=== PATIENT | male | born 1945 | race Caucasian/White ===

== ENCOUNTER 2018-09-29 19:10 | Inpatient (IN) | payer OTHER, MEDICARE, SELFPAY ==
--- NOTE | 2018-09-29 19:10 | NURSING ---
Pt arrived to TCU at this time by WC with family from in [place].
[2018-09-29 20:26] VITALS: BP 124/79; PULSE 110; RESP 16; TEMP 36.3; O2SAT 95; BMI 23.1
--- NOTE | 2018-09-29 20:34 | PCM.HP.STD ---
Problem List (1) Acute encephalopathy Status: Acute (2) Diabetic keto-acidosis Status: Acute (3) Rheumatoid arthritis Status: Chronic (4) Melanoma Status: Chronic (5) Depression Status: Chronic (6) Hypertension Status: Chronic (7) TIA (transient ischemic attack) Status: Chronic (8) Stroke Status: Chronic (9) Seizure disorder Status: Acute (10) Elevated troponin Status: Acute (11) Hypernatremia Status: Acute (12) Hyperglycemia Status: Acute (13) Community acquired pneumonia Status: Acute History of Present Illness Date of Admission: 09/29/18 Chief Complaint: Here for rehabilitation, strengthenig, prior to discharge home with spouse. The patient is a 73 year old Male with below past medical history admitted to [facility] 09/23/2018 from [facility] where he presented after being found unconscious, incontinent of stool in bathroom by . Patient normal self 1 day prior. and sleep in separate rooms, so time of sleep and awakening not accurate. Blood sugar 362, CK 1652, Lactate 3.7. Patient was treated for DKA, rhabdomyolysis with insulin, IV fluids. He had elevated WBC. CT head negative. CT A/P showed L3, L4 compression fractures. Chest X-ray showed lingular pneumonia. Patient admitted to ICU, treated for Vancomycin, Rocephin for unknown cause of encephalopathy. Lumbar puncture not performed, cannot rule out meningitis. He was treated for both community acquired pneumonia, and urinary tract infection. Neurology consulted to evaluate for possible stroke, MRI/MRA negative. Keppra IV started for possible seizures. Patient became responsive, alert on second day of Keppra. Antibiotics deescalated to Rocephin only. His mentation not at baseline, but continues to improve. Encephalopathy thought secondary to seizure from diabetic ketoacidosis. Echo EF 55 - 60%. Diastolic dysfunction. Keppra was not continued. Patient will need outpatient EEG to evaluate for seizure disorder. 09/29/2018 Admit to TCU with debility, here for rehabilitation, strengthening, prior to discharge home with spouse. Past Medical History Past Medical History (Chronic Problems): Chronic Problems Rheumatoid arthritis (Chronic) Melanoma (Chronic) Depression (Chronic) Hypertension (Chronic) TIA (transient ischemic attack) (Chronic) Stroke (Chronic) Home Medications: Ambulatory Orders Medication Instructions Recorded Amlodipine [Norvasc] 5 mg PO DAILY 09/29/18 Aspirin [Aspir 81] 81 mg PO DAILY 09/29/18 Insulin Glargine [Lantus (BKC)] 100 units SC BID 09/29/18 Lisinopril 40 mg PO DAILY 09/29/18 Tamsulosin HCl [Flomax] 0.4 mg PO DAILY 09/29/18 Surgical History: no surgical history Psychiatric History: Depression Lives: Spouse/ Significant Other - sleep in separate bedrooms. Smoking Status: Never smoker Tobacco Use: Non-smoker Alcohol: None Drugs: None - *Family History Maternal History Items: No pertinent history Paternal History Items: No pertinent history Review of Systems Constitutional: Denies: Chills, Fever, Weight Change HEENT: Denies: Head Aches, Sinus Congestion, Sinus Drainage Cardiovascular: Denies: Chest Pain, Palpitations Respiratory: Denies: Cough, Shortness of breath at rest, Sputum production Gastrointestinal: Denies: Abdominal Pain, Nausea, Vomiting Genitourinary: Denies: Dysuria Musculoskeletal: Denies: Joint Pain, Joint Tenderness Skin: Denies: Rash, Wounds Neurological: Denies: Numbness, Tingling, Focal weakness Psychiatric: Denies: Anxiety, Depression, Homicidal Ideations, Suicidal Ideations Hematologic/ Lymphatic: Denies: Easy Bruising, Easy Bleeding VTE Information - Inpt Only VTE Present on Admission: No VTE Mechan Device Prophylaxis: Knee High DAYSI Hose VTE Pharm Prophylaxis ordered?: Yes Patient Problems: Active and Suspected Problems Acute encephalopathy (Acute) Diabetic keto-acidosis (Acute) Seizure disorder (Acute) Elevated troponin (Acute) Hypernatremia (Acute) Hyperglycemia (Acute) Community acquired pneumonia (Acute) - Physical Exam General: Alert, Oriented x3, Cooperative HEENT: Atraumatic, PERRLA, EOMI, Normocephalic Neck: Supple, No JVD, Negative Carotid Bruits Lungs: Clear to auscultation, Normal air movement Cardiovascular: Regular rate, No murmurs Abdomen: Bowel Sounds Present, Soft, Non Tender Extremities: No edema, Capillary Refill Less than 3 Seconds Skin: No rashes, No breakdown Musculoskeletal: No Tenderness to Palpation of Joints or Extremities Neurological: Cranial nerves II-XII grossly intact Psych/Mental Status: Normal Affect, Appropriate Assessment/Plan All Active Problems Acute encephalopathy (Acute) Diabetic keto-acidosis (Acute) Seizure disorder (Acute) Elevated troponin (Acute) Hypernatremia (Acute) Hyperglycemia (Acute) Community acquired pneumonia (Acute) 73 year old male with below past medical history hospitalized for acute delirium secondary to seizure from diabetic ketoacidosis, complicated by community acquired pneumonia, urinary tract infection, admitted to TCU with debility, here for rehabilitation, strengthening, prior to discharge home with spouse. Debility - PT/OT. Pain - Tylenol 1000MG Q6H PRN mild pain. Bowel - Miralax 17GM daily, Senna/colace 1 tablet BID, Dulcolax 10MG PO daily PRN. Pneumonia vaccination - Administer Prevnar 13 and/or Pneumovax 23. DVT prophylaxis - Lovenox 40MG SC daily. Hypertension - Lisinopril 40MG daily, Amlodipine 5MG daily. CV prophylaxis - Aspirin 81MG daily. Diabetes Mellitus - Lantus 20 units twice daily, Humalog 13 units TIDAC, monitor sugar, adjust accordingly. BPH - Tamsulosin 0.4MG daily. Seizure disorder - order EEG. 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 I reminded him he almost , and may want to do what his doctors ask of him if he wants to continue living.
--- NOTE | 2018-09-29 20:38 | HP.PCM_ITS ---
Problem List (1) Acute encephalopathy Status: Acute (2) Diabetic keto-acidosis Status: Acute (3) Rheumatoid arthritis Status: Chronic (4) Melanoma Status: Chronic (5) Depression Status: Chronic (6) Hypertension Status: Chronic (7) TIA (transient ischemic attack) Status: Chronic (8) Stroke Status: Chronic (9) Seizure disorder Status: Acute (10) Elevated troponin Status: Acute (11) Hypernatremia Status: Acute (12) Hyperglycemia Status: Acute (13) Community acquired pneumonia Status: Acute History of Present Illness Date of Admission: 09/29/18 Chief Complaint: Here for rehabilitation, strengthenig, prior to discharge home with spouse. The patient is a 73 year old Male with below past medical history admitted to [facility] 09/23/2018 from [facility] where he presented after being found unconscious, incontinent of stool in bathroom by . Patient normal self 1 day prior. and sleep in separate rooms, so time of sleep and awakening not accurate. Blood sugar 362, CK 1652, Lactate 3.7. Patient was treated for DKA, rhabdomyolysis with insulin, IV fluids. He had elevated WBC. CT head negative. CT A/P showed L3, L4 compression fractures. Chest X-ray showed lingular pneumonia. Patient admitted to ICU, treated for Vancomycin, Rocephin for unknown cause of encephalopathy. Lumbar puncture not performed, cannot rule out meningitis. He was treated for both community acquired pneumonia, and urinary tract infection. Neurology consulted to evaluate for possible stroke, MRI/MRA negative. Keppra IV started for possible seizures. Patient became responsive, alert on second day of Keppra. Antibiotics deescalated to Rocephin only. His mentation not at baseline, but continues to improve. Encephalopathy thought secondary to seizure from diabetic ketoacidosis. Echo EF 55 - 60%. Diastolic dysfunction. Keppra was not continued. Patient will need outpatient EEG to evaluate for seizure disorder. 09/29/2018 Admit to TCU with debility, here for rehabilitation, strengthening, prior to discharge home with spouse. Past Medical History Past Medical History (Chronic Problems): Chronic Problems Rheumatoid arthritis (Chronic) Melanoma (Chronic) Depression (Chronic) Hypertension (Chronic) TIA (transient ischemic attack) (Chronic) Stroke (Chronic) Home Medications: Ambulatory Orders Medication Instructions Recorded Amlodipine [Norvasc] 5 mg PO DAILY 09/29/18 Aspirin [Aspir 81] 81 mg PO DAILY 09/29/18 Insulin Glargine [Lantus (BKC)] 100 units SC BID 09/29/18 Lisinopril 40 mg PO DAILY 09/29/18 Tamsulosin HCl [Flomax] 0.4 mg PO DAILY 09/29/18 Surgical History: no surgical history Psychiatric History: Depression Lives: Spouse/ Significant Other - sleep in separate bedrooms. Smoking Status: Never smoker Tobacco Use: Non-smoker Alcohol: None Drugs: None - *Family History Maternal History Items: No pertinent history Paternal History Items: No pertinent history Review of Systems Constitutional: Denies: Chills, Fever, Weight Change HEENT: Denies: Head Aches, Sinus Congestion, Sinus Drainage Cardiovascular: Denies: Chest Pain, Palpitations Respiratory: Denies: Cough, Shortness of breath at rest, Sputum production Gastrointestinal: Denies: Abdominal Pain, Nausea, Vomiting Genitourinary: Denies: Dysuria Musculoskeletal: Denies: Joint Pain, Joint Tenderness Skin: Denies: Rash, Wounds Neurological: Denies: Numbness, Tingling, Focal weakness Psychiatric: Denies: Anxiety, Depression, Homicidal Ideations, Suicidal Ideations Hematologic/ Lymphatic: Denies: Easy Bruising, Easy Bleeding VTE Information - Inpt Only VTE Present on Admission: No VTE Mechan Device Prophylaxis: Knee High DAYSI Hose VTE Pharm Prophylaxis ordered?: Yes Patient Problems: Active and Suspected Problems Acute encephalopathy (Acute) Diabetic keto-acidosis (Acute) Seizure disorder (Acute) Elevated troponin (Acute) Hypernatremia (Acute) Hyperglycemia (Acute) Community acquired pneumonia (Acute) - Physical Exam General: Alert, Oriented x3, Cooperative HEENT: Atraumatic, PERRLA, EOMI, Normocephalic Neck: Supple, No JVD, Negative Carotid Bruits Lungs: Clear to auscultation, Normal air movement Cardiovascular: Regular rate, No murmurs Abdomen: Bowel Sounds Present, Soft, Non Tender Extremities: No edema, Capillary Refill Less than 3 Seconds Skin: No rashes, No breakdown Musculoskeletal: No Tenderness to Palpation of Joints or Extremities Neurological: Cranial nerves II-XII grossly intact Psych/Mental Status: Normal Affect, Appropriate Assessment/Plan All Active Problems Acute encephalopathy (Acute) Diabetic keto-acidosis (Acute) Seizure disorder (Acute) Elevated troponin (Acute) Hypernatremia (Acute) Hyperglycemia (Acute) Community acquired pneumonia (Acute) 73 year old male with below past medical history hospitalized for acute delirium secondary to seizure from diabetic ketoacidosis, complicated by community acquired pneumonia, urinary tract infection, admitted to TCU with debility, here for rehabilitation, strengthening, prior to discharge home with spouse. * Debility - PT/OT. * Pain - Tylenol 1000MG Q6H PRN mild pain. * Bowel - Miralax 17GM daily, Senna/colace 1 tablet BID, Dulcolax 10MG PO daily PRN. * Pneumonia vaccination - Administer Prevnar 13 and/or Pneumovax 23. * DVT prophylaxis - Lovenox 40MG SC daily. * Hypertension - Lisinopril 40MG daily, Amlodipine 5MG daily. * CV prophylaxis - Aspirin 81MG daily. * Diabetes Mellitus - Lantus 20 units twice daily, Humalog 13 units TIDAC, monitor sugar, adjust accordingly. * BPH - Tamsulosin 0.4MG daily. * Seizure disorder - order EEG. 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 I reminded him he almost , and may want to do what his doctors ask of him if he wants to continue living.
[2018-09-29 20:56] LABS: Bedside Glucose 284 mg/dL (70-110)
--- NOTE | 2018-09-29 22:00 | NURSING ---
Pt in room at this time voicing concern of pt abruptly getting up to use the br. agreeable to having personal alarm place on pt. PA ordered. Will continue to monitor.
--- NOTE | 2018-09-29 22:01 | NURSING ---
Addendum entered by Cynthia Gil 09/29/18 22:03: 100 units Lantus DC'd. Original Note: Pt came with orders for [address] Kiran aware. N.O. for Lantus 20 units BID and Humalog 13 units with meals. Will continue to monitor.
[2018-09-29 22:10] VITALS: PULSE 83; O2SAT 98
[2018-09-29] MEDS: Acetaminophen 500 MG Tablet 1000 MG PO (22:18)
[2018-09-30] MEDS: Menthol/Lanolin/Calamine/Znox 113 GM Tube 1 APPLIC TOPICAL ×2 (05:07→18:01)
[2018-09-30] MEDS: amLODIPine 5 MG Tablet PO (05:08)
[2018-09-30] MEDS: Lisinopril 40 MG Tablet PO (05:08)
[2018-09-30] MEDS: Senna/Docusate Sodium 1 Tablet PO (05:08)
[2018-09-30 06:30] LABS: Bedside Glucose 296 mg/dL (70-110)
[2018-09-30 06:39] LABS: Absolute Lymphocyte Count 1.87 X10^3/ul (0.83-4.51); Basophil# 0.01 X10^3/uL; Basophil% 0.2 % (0-1); Eosinophil# 0.14 X10^3/uL; Eosinophils% 2.1 % (0-5); Hematocrit 36.9 % (40-54); Hemoglobin 12.2 g/dl (13.0-16.5); Lymphocyte # 1.87 X10^3/ul (4.0); Lymphocyte % 28.1 % (19-41); Mean Corp Hgb Conc 33.1 g/gl (32-36); Mean Corpuscular Hgb 29.1 pg (27.0-32.0); Mean Corpuscular Volume 88.1 fL (80-94); Mean Platelet Vol. 10.1 fl (6.2-12.0); Monocyte# 0.59 X10^3/uL; Monocyte% 8.9 % (0-10); Neutrophil # 4.01 X10^3/uL (2.7-7.7); Neutrophil % 60.2 % (47-70); Platelet Count 160 K/mm3 (150-450); RBC Distribution Width CV 13.7 % (11.6-14.6); RBC Distribution Width SD 43.7 fl (35.1-43.9); Red Blood Count 4.19 M/mm3 (4.6-6.2); White Blood Count 6.7 K/mm3 (4.4-11.0)
[2018-09-30 06:54] LABS: Anion Gap 10 (5-15); BUN 17 mg/dL (7-18); BUN/Creat Ratio 16.2 RATIO (10-20); Chloride 102 mmol/L (98-107); Creatinine, Serum 1.05 mg/dL (0.70-1.30); EST Glomerular Filtration Rate 74 mL/min (>60); Est Glom Filt Rate - Afr Amer 89 mL/min (>60); Estimated Creatinine Clearance 63.59 ml/min; Glucose 324 mg/dL (74-106); Sodium Level 139 mmol/L (136-145)
[2018-09-30 07:12] LABS: POSITIVE COUNT NO; POSITIVE DIFFERENTIAL NO; POSITIVE MORPHOLOGY NO
[2018-09-30] MEDS: Aspirin E.C. 81 MG Tablet PO (08:07)
[2018-09-30] MEDS: Enoxaparin 40 MG/0.4 ML Syringe SC (08:09)
[2018-09-30] MEDS: Insulin Lispro 100 UNIT/ML INSULN.PEN 13 UNIT SC (08:10)
--- NOTE | 2018-09-30 08:59 | NURSING ---
NO to increase lantus to 25 units and humalog to 16 units.
[2018-09-30 11:36] LABS: Bedside Glucose 295 mg/dL (70-110)
[2018-09-30] MEDS: Insulin Lispro 100 UNIT/ML INSULN.PEN 16 UNIT SC (11:40)
[2018-09-30] MEDS: Tuberculin,Purif.prot.deriv. 50 TU/ML Vial 5 ML ID (11:44)
--- NOTE | 2018-09-30 11:51 | NURSING ---
NO to increase lantus to 30 units and humalog to 20 units, and C peptide .
--- NOTE | 2018-09-30 14:47 | NURSING ---
NO to change diet to regular.
[2018-09-30 15:32] VITALS: BP 122/70; PULSE 88; RESP 18; TEMP 35.9; O2SAT 96
[2018-09-30 17:01] LABS: Bedside Glucose 218 mg/dL (70-110)
[2018-09-30] MEDS: Insulin Lispro 100 UNIT/ML INSULN.PEN 20 UNIT SC (17:56)
[2018-09-30] MEDS: Tamsulosin HCl 0.4 MG Capsule PO (17:57)
[2018-09-30 20:13] VITALS: PULSE 90; O2SAT 97
[2018-09-30 21:06] LABS: Bedside Glucose 220 mg/dL (70-110)
[2018-10-01] MEDS: Enoxaparin 40 MG/0.4 ML Syringe SC (06:01)
[2018-10-01] MEDS: Menthol/Lanolin/Calamine/Znox 113 GM Tube 1 APPLIC TOPICAL ×2 (06:01→16:10)
[2018-10-01] MEDS: amLODIPine 5 MG Tablet PO (06:02)
[2018-10-01] MEDS: Lisinopril 40 MG Tablet PO (06:02)
[2018-10-01] MEDS: Senna/Docusate Sodium 1 Tablet PO (06:02)
[2018-10-01 06:51] LABS: Bedside Glucose 194 mg/dL (70-110)
[2018-10-01] MEDS: Insulin Lispro 100 UNIT/ML INSULN.PEN 20 UNIT SC ×3 (08:33→17:39)
[2018-10-01] MEDS: Aspirin E.C. 81 MG Tablet PO (08:33)
[2018-10-01 11:10] LABS: Bedside Glucose 109 mg/dL (70-110)
[2018-10-01] MEDS: Acetaminophen 500 MG Tablet 1000 MG PO (11:51)
[2018-10-01 16:00] VITALS: BP 102/59; PULSE 92; RESP 20; TEMP 36.7; O2SAT 98
[2018-10-01 17:05] LABS: Bedside Glucose 141 mg/dL (70-110)
[2018-10-01] MEDS: Tamsulosin HCl 0.4 MG Capsule PO (17:37)
--- NOTE | 2018-10-01 17:43 | NURSING ---
family at bedside throughout the day.
[2018-10-01 21:05] LABS: Bedside Glucose 128 mg/dL (70-110)
[2018-10-02] MEDS: Menthol/Lanolin/Calamine/Znox 113 GM Tube 1 APPLIC TOPICAL ×2 (03:53→17:25)
[2018-10-02] MEDS: Lisinopril 40 MG Tablet PO (03:53)
[2018-10-02] MEDS: amLODIPine 5 MG Tablet PO (03:53)
[2018-10-02 03:55] VITALS: BP 116/67; PULSE 108
[2018-10-02 06:46] LABS: Bedside Glucose 131 mg/dL (70-110)
[2018-10-02] MEDS: Enoxaparin 40 MG/0.4 ML Syringe SC (06:52)
[2018-10-02] MEDS: Insulin Lispro 100 UNIT/ML INSULN.PEN 20 UNIT SC ×3 (08:26→17:24)
[2018-10-02] MEDS: Aspirin E.C. 81 MG Tablet PO (08:26)
[2018-10-02 09:30] VITALS: BP 83/54; PULSE 107; RESP 18; O2SAT 96
--- NOTE | 2018-10-02 09:30 | NURSING ---
Addendum entered by Fiona Pollack 10/02/18 13:06: Dr Kiran updated, New order to DC norvasc, flomax and decreased Lisinopril. Original Note: Pt dizzy during therapy with standing, hypotensive. Therapy assisted pt back to bed, denied dizziness with that transfer. BP rechecked at 83/54 HR 107 regular. Pt denied any other symptoms. Family stated pt has not been drinking like he usually does. Encouraged water any fluids. Pt drank. Will update Dr Kiran. Pt resting in bed, therapy finishing treatment in bed. Will recheck BP.
[2018-10-02 11:15] LABS: Bedside Glucose 139 mg/dL (70-110)
--- NOTE | 2018-10-02 13:12 | NURSING ---
C/o diarrhea, staff has not witnessed any episodes but describes stool as soft and formed. Has a history of partial colon removal d/t cancer. Given information sheet for low fiber diet because she feels her diet is partly to blame. Discussed cooked vegetables versus raw vegetables.
[2018-10-02 13:15] VITALS: BP 95/49; PULSE 90
[2018-10-02 16:00] VITALS: BP 91/53; PULSE 69; RESP 18; TEMP 37.1; O2SAT 97
[2018-10-02 17:01] LABS: Bedside Glucose 114 mg/dL (70-110)
[2018-10-02 21:06] LABS: Bedside Glucose 81 mg/dL (70-110)
[2018-10-03 01:36] LABS: Bedside Glucose 96 mg/dL (70-110)
[2018-10-03] MEDS: Enoxaparin 40 MG/0.4 ML Syringe SC (06:28)
[2018-10-03] MEDS: Menthol/Lanolin/Calamine/Znox 113 GM Tube 1 APPLIC TOPICAL ×2 (06:29→20:53)
[2018-10-03] MEDS: Lisinopril 10 MG Tablet PO (06:29)
[2018-10-03 06:38] VITALS: BP 158/83; PULSE 88
[2018-10-03 06:51] LABS: Bedside Glucose 115 mg/dL (70-110)
[2018-10-03] MEDS: Aspirin E.C. 81 MG Tablet PO (08:07)
--- NOTE | 2018-10-03 09:38 | NURSING ---
Heather held this morning d/t low blood sugars, Dr. Kiran reviewed and adjusted insulin dose.
[2018-10-03] MEDS: Acetaminophen 500 MG Tablet 1000 MG PO ×2 (09:46→21:50)
--- NOTE | 2018-10-03 10:10 | CASEMGMT ---
Plan of care meeting held. Resident present as well as resident spouse. No discharge date set. Resident to continue with further care and treatment on the Transitional Care Unit. Resident does have an insurance update due on 10/03/18, resident and resident family aware that continued stay approval is not guaranteed. Resident plans to discharge to home with spouse when it is time to discharge. Support given. Will continue to follow. Tricia SANTANA, TOMAS
[2018-10-03] MEDS: Glucerna Shake 120 ML LIQUID PO ×3 (11:18→20:50)
[2018-10-03 11:40] LABS: Bedside Glucose 280 mg/dL (70-110)
[2018-10-03] MEDS: Insulin Lispro 100 UNIT/ML INSULN.PEN 13 UNIT SC ×2 (11:48→17:49)
--- NOTE | 2018-10-03 12:37 | CASEMGMT ---
Insurance Clinical information sent. Pending continued stay approval. Auth#[id number] Tricia SANTANA, TOMAS
[2018-10-03 16:00] VITALS: BP 138/69; PULSE 71; RESP 18; TEMP 37.1; O2SAT 97
--- NOTE | 2018-10-03 16:27 | NURSING ---
requesting results for EEG. notified [facility] office for results. They are to return call when read by neurology. updated.
[2018-10-03 16:50] LABS: Bedside Glucose 245 mg/dL (70-110)
--- NOTE | 2018-10-03 17:28 | CASEMGMT ---
Insurance Continued stay denied with last cover day being 10/03/18 and resident to discharge or financial responsibility to begin on 10/04/18. Auth#[id number] Tricia SANTANA, TOMAS
--- NOTE | 2018-10-03 17:29 | CASEMGMT ---
Social Work Spoke with resident and resident spouse in room. This director of social media marketing communicating that continued stay has been denied by insurance with a last cover day of 10/03/18 and resident to discharge or financial responsibility to begin on 10/04/18. Resident and resident spouse voicing understanding and planning to discharge on 10/04/18. Resident and resident family declining per to per or appeal. Resident plans to discharge to home with spouse. Resident reporting to need a walker. Resident does not have a preference of [facility], [place] to be utilized. This director of social media marketing communicating that physical and occupational therapy as well as group home are recommending for resident to continue with services within the home. Resident and resident spouse are agreeable to recommendations and requesting for home health care to be set up through a home health care company in [place], [place] (no preference outside of this request). Resident spouse plans to provide transportation home for resident around 3:00pm tomorrow. Support given. Will continue to follow to set up home health care and mentioned DME. Proposed discharge date: 10/04/18 PLAN: Discharge to home with spouse and home health care. Tricia SANTANA, TOMAS
[2018-10-03 21:11] LABS: Bedside Glucose 253 mg/dL (70-110)
--- NOTE | 2018-10-03 21:23 | DCINST_ITS ---
- Discharge Diagnoses Current Active Problems: Current Active and Chronic Problems Acute encephalopathy (Acute) Diabetic keto-acidosis (Acute) Rheumatoid arthritis (Chronic) Melanoma (Chronic) Depression (Chronic) Hypertension (Chronic) TIA (transient ischemic attack) (Chronic) Stroke (Chronic) Seizure disorder (Acute) Elevated troponin (Acute) Hypernatremia (Acute) Hyperglycemia (Acute) Community acquired pneumonia (Acute) You will use the following diet at home:: No restrictions, Regular Your food should be the consistency of: Regular Your liquids should be the consistency of: Regular/Thin Discharge Activity: Return to Normal Activity, May Shower, Use Walker May resume sexual activity in: No Restrictions Weight Bearing Status: Weight bearing as tolerated Call your doctor if you observe: Fever of 101 or Higher, Inability to urinate, Inability to have a bowel movement, Shortness of breath, Chest pain, Uncontrolled pain Allergies/Adverse Reactions: Allergies No Known Allergies Allergy (Verified 09/29/18 21:32) Medications to take at Discharge Acetaminophen [Tylenol] 1,000 mg PO Q6H PRN tablet 10/03/18 Aspirin [Aspir 81] 81 mg PO DAILY #30 tablet. 10/03/18 Insulin Glargine [Lantus SoloStar Pen] 20 units SUBCUT BID #1 pen 10/03/18 Insulin Lispro [Humalog KwikPen] 13 unit SUBCUT TIDCM #1 insuln.pen 10/03/18 Lisinopril 40 mg PO DAILY #30 tab 10/03/18 Menthol/Lanolin/Calamine/Znox [Calmoseptine Ointment] 1 applic TOPICAL BID tube 10/03/18 Mineral Oil/Petrolatum,White [Eucerin] 1 applic TOPICAL BID jar 10/03/18 The following prescriptions were given: Aspirin [Aspir 81] 81 mg PO DAILY #30 tablet. Lisinopril 40 mg PO DAILY #30 tab Insulin Glargine [Lantus SoloStar Pen] 20 units SUBCUT BID #1 pen Insulin Lispro [Humalog KwikPen] 13 unit SUBCUT TIDCM #1 insuln.pen Primary Care Physician: Bolivar Kiran Chi, MD [COURTESY STAFF PHYSICIAN] - Please follow up with your Primary Care Physician in: 1 day. Test Results: Test results from this visit will be discussed in further detail at your follow- up appointment, if applicable. Proposed Discharge Date: 10/04/18
--- NOTE | 2018-10-03 21:23 | PCM.DC.SUM ---
Discharge Date and Diagnosis - Problem List Patient Problems: Active and Suspected Problems Acute encephalopathy (Acute) Diabetic keto-acidosis (Acute) Seizure disorder (Acute) Elevated troponin (Acute) Hypernatremia (Acute) Hyperglycemia (Acute) Community acquired pneumonia (Acute) Date of Admission: 09/29/18 Date of Discharge: 10/04/18 - Primary Discharge Diagnosis Active and Suspected Problems Acute encephalopathy (Acute) Diabetic keto-acidosis (Acute) Seizure disorder (Acute) Elevated troponin (Acute) Hypernatremia (Acute) Hyperglycemia (Acute) Community acquired pneumonia (Acute) - Secondary Discharge Diagnosis Chronic Problems Rheumatoid arthritis (Chronic) Melanoma (Chronic) Depression (Chronic) Hypertension (Chronic) TIA (transient ischemic attack) (Chronic) Stroke (Chronic) Hospital Course and Treatment Imaging Results: 10/03/18 13:16 Diet: Cardiac: Calorie-Controlled Is pt able to select menu?: Yes How many daily calories?: 1999 calorie Labs (Last 48 Hours) 10/02/18 10/02/18 10/02/18 06:19 11:08 16:50 POC Glucose 131 H 139 H 114 H 10/02/18 10/03/18 10/03/18 21:02 01:32 06:27 POC Glucose 81 96 115 H 10/03/18 10/03/18 10/03/18 11:36 16:41 21:07 POC Glucose 280 H 245 H 253 H Operations: None Procedures: None Summary of Care Provided: The patient is a 73 year old Male with below past medical history hospitalized for acute delirium secondary to seizure from diabetic ketoacidosis, complicated by community acquired pneumonia, urinary tract infection, admitted to TCU with debility, here for rehabilitation, strengthening, prior to discharge home with spouse. Discharge home with spouse, and Home Health Care. Patient Problems: Active and Suspected Problems Acute encephalopathy (Acute) Diabetic keto-acidosis (Acute) Seizure disorder (Acute) Elevated troponin (Acute) Hypernatremia (Acute) Hyperglycemia (Acute) Community acquired pneumonia (Acute) - Physical Exam Vital Signs Temp Pulse Resp BP Pulse Ox 98.7 F 71 18 138/69 H 97 10/03/18 16:00 10/03/18 16:00 10/03/18 16:00 10/03/18 16:00 10/03/18 16:00 Oxygen Delivery Method Room Air Weight: 69.938 kg Body Mass Index (BMI) 23.1 Intake and Output for Last 24 Hours 10/01/18 10/02/18 10/03/18 23:59 23:59 23:59 Intake Total 820 / 820 1100 / 1100 1040 / 1040 Output Total 600 / 600 Balance 820 / 820 500 / 500 1040 / 1040 POC Glucose 10/03/18 10/03/18 10/03/18 21:07 16:41 11:36 POC Glucose 253 H 245 H 280 H 10/03/18 10/03/18 06:27 01:32 POC Glucose 115 H 96 Discharge Diet: No Restrictions Discharge Activity: Return to Normal Activity, May Shower, Use Walker May resume sexual activity in: No Restrictions Weight Bearing Status: Weight bearing as tolerated Call your doctor if you observe: Fever of 101 or Higher, Inability to urinate, Inability to have a bowel movement, Shortness of breath, Chest pain, Uncontrolled pain Home Medications: Medications to take at Discharge Acetaminophen [Tylenol] 1,000 mg PO Q6H PRN tablet 10/03/18 Aspirin [Aspir 81] 81 mg PO DAILY #30 tablet. 10/03/18 Insulin Glargine [Lantus SoloStar Pen] 20 units SUBCUT BID #1 pen 10/03/18 Insulin Lispro [Humalog KwikPen] 13 unit SUBCUT TIDCM #1 insuln.pen 10/03/18 Lisinopril 40 mg PO DAILY #30 tab 10/03/18 Menthol/Lanolin/Calamine/Znox [Calmoseptine Ointment] 1 applic TOPICAL BID tube 10/03/18 Mineral Oil/Petrolatum,White [Eucerin] 1 applic TOPICAL BID jar 10/03/18 Following Prescrptions Were Given to Patient: Aspirin [Aspir 81] 81 mg PO DAILY #30 tablet. Lisinopril 40 mg PO DAILY #30 tab Insulin Glargine [Lantus SoloStar Pen] 20 units SUBCUT BID #1 pen Insulin Lispro [Humalog KwikPen] 13 unit SUBCUT TIDCM #1 insuln.pen Primary Care Physician: Bolivar Kiran Chi, MD [COURTESY STAFF PHYSICIAN] - Please follow up with your Primary Care Physician in: 1 day. Disposition: Home with Home Health Patient Condition:: Stable Medical Necessity - Tobacco Use Smoking Status: Never smoker Tobacco Use: Non-smoker Meaningful Use Info Meaningful Use Diagnoses (Choose all that apply): None applicable
--- NOTE | 2018-10-03 21:25 | PCM.PN.HH ---
Home Health Note - Plan Overview of reason of hospitalization: The patient is a 73 year old Male with below past medical history hospitalized for acute delirium secondary to seizure from diabetic ketoacidosis, complicated by community acquired pneumonia, urinary tract infection, admitted to TCU with debility, here for rehabilitation, strengthening, prior to discharge home with spouse. Discharge home with spouse, and Home Health Care. Problems: Patient was seen for Acute encephalopathy (Acute) Diabetic keto-acidosis (Acute) Rheumatoid arthritis (Chronic) Melanoma (Chronic) Depression (Chronic) Hypertension (Chronic) TIA (transient ischemic attack) (Chronic) Stroke (Chronic) Seizure disorder (Acute) Elevated troponin (Acute) Hypernatremia (Acute) Hyperglycemia (Acute) Community acquired pneumonia (Acute) Complete List of Medical Problems Acute encephalopathy (Acute) Diabetic keto-acidosis (Acute) Rheumatoid arthritis (Chronic) Melanoma (Chronic) Depression (Chronic) Hypertension (Chronic) TIA (transient ischemic attack) (Chronic) Stroke (Chronic) Seizure disorder (Acute) Elevated troponin (Acute) Hypernatremia (Acute) Hyperglycemia (Acute) Community acquired pneumonia (Acute) - Requirements and Reasons Disciplines Needed/Ordered: Snf, Physical Therapy Reason for Disciplines: Disease Specific Monitoring/education, Medication Management/Knowledge Deficit, Teaching of Injections, Gait Training, Stair Training, Fall Prevention, Home Safety/Equipment Instruction, Balance and/or Posture Training, Transfer Training Related To: Limited/Poor Endurance, Shortness of Breath with Activity, Physical Impairments, Unsteady Gait/Balance, Fall Risk Patient is unable to leave the home: Without Aid of Supportive Devices (crutches, cane, wheelchair, walker), Without the assistance of another person - Additional Disciplines Additional Disciplines Needed/Ordered: Occupational Therapy
[2018-10-04] MEDS: Glucerna Shake 120 ML LIQUID PO ×2 (06:00→11:50)
[2018-10-04] MEDS: Enoxaparin 40 MG/0.4 ML Syringe SC (06:27)
[2018-10-04] MEDS: Lisinopril 10 MG Tablet PO (06:28)
[2018-10-04] MEDS: Menthol/Lanolin/Calamine/Znox 113 GM Tube 1 APPLIC TOPICAL (06:30)
[2018-10-04 06:41] LABS: Bedside Glucose 188 mg/dL (70-110)
[2018-10-04] MEDS: Insulin Lispro 100 UNIT/ML INSULN.PEN 13 UNIT SC ×2 (07:55→11:53)
[2018-10-04] MEDS: Aspirin E.C. 81 MG Tablet PO (07:55)
--- NOTE | 2018-10-04 08:31 | CASEMGMT ---
Social Work [place] [facility] [facility] [place] prior to resident discharge on this day. Telephone call to [facility], Clinical information faxed. [facility] to get back to this social science teacher on whether or not they will be able to accept resident. Referral made for physical and occupational therapy as well as fdc. Proposed discharge date: 10/04/18 PLAN: Discharge to home with spouse and home health care. Tricia SANTANA, TOMAS
[2018-10-04] MEDS: Acetaminophen 500 MG Tablet 1000 MG PO (10:03)
[2018-10-04 11:26] LABS: Bedside Glucose 167 mg/dL (70-110)
--- NOTE | 2018-10-04 11:42 | CASEMGMT ---
Brief interview for mental status (BIMS) and resident mood interview (PHQ-9) completed on this day. BIMS score 07/21. PHQ-9 score 12/01
--- NOTE | 2018-10-04 11:47 | CASEMGMT ---
Social Work Telephone call from [facility] voicing to not be able to accept resident due to not being in network with resident insurance. Referral now sent to [facility], pending response at this time. Proposed discharge date: 10/04/18 PLAN: Discharge to home with spouse and home health care. Tricia SANTANA, TOMAS
--- NOTE | 2018-10-04 13:26 | EEG ---
- Electroencephalogram Date of service 10/01/2018 History EEG is being done in this 73 yr M to rule out seizures EEG Description: This is an 18 channel EEG with 10-20 lead placement system. Bipolar montages, Referential and Circumferential montages were reviewed. Photic stimulation and Hyperventilation were performed. The posterior dominant rhythm is 6 HZ synchronous, symmetric, reacting to eye opening and closing. Photo stimulation elicited normal driving response but no abnormal photoparoxysmal response, Hyperventilation did not elicit any abnormal photoparoxysmal response. Sleep was identified. There is generalized abnormal background slowing in the theta range noted. There was no epileptiform discharges or electrographic seizures noted during this recording. EEG Interpretation This is an abnormal EEG due to mild generalized slowing. This may be seen with generalized cerebral dysfunction like metabolic/toxic encephalopathy. Clinical correlation is advised. There is no epileptiform discharges or electrographic seizures noted during the record.
--- NOTE | 2018-10-04 14:19 | CASEMGMT ---
Social Work Telephone call from [facility], They are able to accept resident. Proposed discharge date: 10/04/18 PLAN: Discharge to home with spouse and home health care. Tricia SANTANA, TOMAS
[2018-10-04 15:05] VITALS: BP 134/73; PULSE 84; RESP 18; TEMP 36.9; O2SAT 99
--- NOTE | 2018-10-04 16:08 | CASEMGMT ---
Insurance Notified insurance of resident discharge on 10/04/18 to home with spouse and home health care. Auth#[id number] Tricia SANTANA, TOMAS
--- NOTE | 2018-10-10 12:42 | MDS.RN ---
Information for the mds was obtained from review of the clinical record, interview of resident, staff, and direct observation of resident's care.
== END 2018-10-04 15:15 | disposition home health service (06) | DRG 948 ==
PROVIDERS: Admitting Provider Family Medicine Geriatric Medicine; Family Provider Family Medicine; PCP Family Medicine; Referring Provider Family Medicine Geriatric Medicine; Visit Provider Family Medicine Geriatric Medicine
DX: R53.81 Other malaise (principal); G93.40 Encephalopathy, unspecified; N40.0 Benign prostatic hyperplasia without lower urinary tract symptoms; G40.909 Epilepsy, unspecified, not intractable, without status epilepticus; I10 Essential (primary) hypertension; M06.9 Rheumatoid arthritis, unspecified; Z86.73 Personal history of transient ischemic attack (TIA), and cerebral infarction without residual deficits; Z91.19 Patient's noncompliance with other medical treatment and regimen; Z87.01 Personal history of pneumonia (recurrent); Z85.820 Personal history of malignant melanoma of skin; Z87.440 Personal history of urinary (tract) infections; E11.9 Type 2 diabetes mellitus without complications
CPT/HCPCS: 80048; 82962; 85025; 97110; 97116; 97162; 97166; 97530; 97535; 97802

== ENCOUNTER → 2018-10-05 11:29 | Outpatient (CLI) | payer OTHER, MEDICARE, SELFPAY ==
[2018-09-29 20:26] VITALS: BMI 23.1
[2018-10-05 12:43] LABS: Absolute Lymphocyte Count 1.35 X10^3/ul (0.83-4.51); Absolute Neutrophil Count 8.2 X10^3/uL (2.0-7.7); Basophil# 0.02 X10^3/uL; Basophil% 0.2 % (0-1); Eosinophil# 0.04 X10^3/uL; Eosinophils% 0.4 % (0-5); Hematocrit 37.9 % (40-54); Hemoglobin 12.7 g/dl (13.0-16.5); Lymphocyte # 1.35 X10^3/ul (4.0); Lymphocyte % 13.2 % (19-41); Mean Corp Hgb Conc 33.5 g/gl (32-36); Mean Corpuscular Volume 89.4 fL (80-94); Mean Platelet Vol. 10.1 fl (6.2-12.0); Monocyte% 5.9 % (0-10); Neutrophil # 8.22 X10^3/uL (2.7-7.7); Neutrophil % 80.1 % (47-70); Platelet Count 303 K/mm3 (150-450); RBC Distribution Width CV 13.9 % (11.6-14.6); RBC Distribution Width SD 44.6 fl (35.1-43.9); Red Blood Count 4.24 M/mm3 (4.6-6.2); White Blood Count 10.3 K/mm3 (4.4-11.0)
[2018-10-05 12:47] LABS: POSITIVE COUNT NO; POSITIVE DIFFERENTIAL NO; POSITIVE MORPHOLOGY NO
[2018-10-05 13:12] LABS: ALB/GLOB Ratio 0.8 RATIO (0.9-2.4); AST(SGOT) 19 U/L (15-37); Alanine Aminotransfer ALT/SGPT 33 U/L (16-61); Albumin, Serum 3.1 g/dL (3.2-5.0); Alkaline Phosphatase 127 U/L (45-117); Anion Gap 9 (5-15); BUN 22 mg/dL (7-18); Chloride 105 mmol/L (98-107); EST Glomerular Filtration Rate 70 mL/min (>60); Est Glom Filt Rate - Afr Amer 85 mL/min (>60); Globulin 4.1 g/dL (2.2-4.2); Glucose 185 mg/dL (74-106); Potassium 3.7 mmol/L (3.5-5.1); Protein, Total 7.2 g/dL (6.4-8.2); Sodium Level 137 mmol/L (136-145)
== END ==
PROVIDERS: Family Provider Family Medicine; PCP Family Medicine; Visit Provider Family Medicine Geriatric Medicine
DX: R53.83 Other fatigue (principal)
CPT/HCPCS: 36415; 80053; 84443; 85025; 87086

== ENCOUNTER → 2018-11-17 08:30 | Outpatient (CLI) | payer OTHER, MEDICARE, SELFPAY ==
[2018-09-29 20:26] VITALS: BMI 23.1
--- NOTE | 2018-11-17 08:33 | MRI_ITS ---
STUDY: MRI LUMBAR SPINE WITHOUT CONTRAST REASON FOR EXAM: Male, 73 years old. Lumbar stenosis and leg pain TECHNIQUE: Standardized fat and water weighted pulse sequences were obtained in the sagittal and axial planes. COMPARISON: None FINDINGS: T12-L1: Normal endplates. Normal disc height, hydration and morphology. Normal bilateral facet joints. Normal central canal and bilateral lateral recesses. Normal bilateral intervertebral neural foramina. Decreased lumbar lordosis. There is no substantial scoliosis. Normal conus medullaris that terminates at T12-L1 L1-2: Normal endplates. Normal disc height, hydration and morphology. Normal bilateral facet joints. Normal central canal and bilateral lateral recesses. Normal bilateral intervertebral neural foramina. L2-3: Mild endplate spurring. Normal disc height, hydration and minor annular bulge.. Normal bilateral facet joints. Normal central canal and bilateral lateral recesses. Normal bilateral intervertebral neural foramina. L3-4: Mild endplate spurring. Normal disc height, desiccation and minor annular bulge. Bilateral facet arthropathy and thickening of ligamenta flava greater on the left.. Normal central canal and bilateral lateral recesses. Mild right neuroforaminal encroachment and moderate narrowing on the left. L4-5: Mild endplate spurring Normal disc height, desiccation and mild annular bulge with tiny central annular tear and disc protrusion. Bilateral facet arthropathy and thickening of ligamenta flava greater on the left.. Mild narrowing of the central canal. Mild bilateral recess encroachment. Mild right neuroforaminal stenosis and moderate narrowing of the left L5-S1: Mild endplate spurring. Normal disc height, desiccation and minor annular bulge with tiny left paracentral disc protrusion.. Bilateral facet arthropathy slightly greater on the left. Normal central canal and bilateral lateral recesses. Mild right neuroforaminal encroachment and moderate narrowing on the left Normal visualized sacral ala. Normal visualized paraspinous soft tissue structures. MRI/Spine Lumbar (Routine) IMPRESSION: No evidence for acute fractures fixation.. Spinal stenosis at L3-4, L4-5 and L5-S1 secondary to disc disease and bony hypertrophy greater on the left Electronically Signed: Iván Freitas MD at 19:35 EDT , Service support ,
== END ==
PROVIDERS: Family Provider Family Medicine Geriatric Medicine; PCP Family Medicine Geriatric Medicine; Referring Provider Family Medicine Geriatric Medicine; Visit Provider Family Medicine Geriatric Medicine
DX: M48.061 Spinal stenosis, lumbar region without neurogenic claudication (principal)
CPT/HCPCS: 72148

== ENCOUNTER 2018-11-20 15:43 | Inpatient (IN) | payer OTHER, MEDICARE, SELFPAY ==
[2018-09-29 20:26] VITALS: BMI 23.1
[2018-11-20 15:44] VITALS: BP 125/70; PULSE 118; RESP 18; TEMP 36.6; O2SAT 99; BMI 22.1
--- NOTE | 2018-11-20 17:32 | ED.DCSUM_ITS ---
- ER Visit Summary Date of Service: 11/20/18 Chief Complaint: Leg weakness History of Present Illness: The patient is a 73 M who was admitted to [facility] September 23- after being found unresponsive. He was found to be in DKA/HHS with presumed seizure. Following this patient was discharged to rehab at [facility] in early October. Patient and state he was only able to ablate with a gait belt and 2 person assist but he was discharged to home. He is a progressive worsening weakness over the past several weeks and states he has not been able to walk for the last week and a half. He has been seen by his PCP multiple times. An MRI of the lumbar spine on November 17 that showed multiple levels of spinal stenosis secondary to disc disease and bony hypertrophy greater on the left. I do not have an old MRI to compare to. Family states Dr. Kiran advised him to come to the hospital to be admitted as his weakness is worse than when he was discharged from rehab. Patient has chronic neuropathy in his legs, but denies significant pain. Physical Examination: Vital signs remarkable only for heart rate of 118. Patient sitting upright in bed no acute distress. He is alert and talkative. Head neck examination unremarkable. Heart is regular rate and rhythm. Lung sounds are clear. Abdomen is soft and nontender. Back examination is nontender. Lower extremity examination reveals that he can rock his legs side to side but he cannot lift them off the bed. When I lift his legs he cannot hold him up. Right patellar reflexes 1+ and left patellar reflexes 2+. He has good distal pulses and legs are warm. Sensation reveals baseline neuropathy but no new deficits. Test Results: CBC is normal. Chemistry studies remarkable only for glucose of 152. LFTs normal. CK is normal. Urinalysis shows positive nitrites with 25-50 white cells and greater than 100 RBCs. Rare bacteria are noted. Emergency Department Course and Treatment: Patient is given IV fluids. Urine culture has been sent and he will be given a dose of Rocephin here. Patient may be weak secondary to deconditioning. I did consider Guillain-Parsons? as a potential diagnosis. Symptoms have been ongoing for quite some time and have slowly progressed. Because of the patient's significant spinal stenosis and arthritic changes in his back I feel that lumbar puncture would be better achieved under fluoroscopic guidance. I will speak with hospitalist regarding admission for treatment and care. Treatment Plan: [] Disposition: Admit Impression: 1. Bilateral leg weakness 2. Cystitis This note was generated with [employer] dictation software. It may contain incorrect words, spelling, and punctuation that were not noted in review of the chart prior to signing ED Disposition - Plan for ED Patient: Referrals: Bolivar Kiran Chi, MD [Primary Care Provider] -
[2018-11-20] MEDS: 0.9% Normal Saline 1,000 ML 150 ML IV (17:39)
[2018-11-20 17:46] LABS: Absolute Lymphocyte Count 1.67 X10^3/ul (0.83-4.51); Basophil# 0.01 X10^3/uL; Basophil% 0.2 % (0-1); Eosinophil# 0.03 X10^3/uL; Eosinophils% 0.6 % (0-5); Hematocrit 40.9 % (40-54); Hemoglobin 13.9 g/dl (13.0-16.5); Lymphocyte # 1.67 X10^3/ul (4.0); Lymphocyte % 32.9 % (19-41); Mean Corpuscular Hgb 30.1 pg (27.0-32.0); Mean Corpuscular Volume 88.5 fL (80-94); Mean Platelet Vol. 10.1 fl (6.2-12.0); Monocyte# 0.35 X10^3/uL; Monocyte% 6.9 % (0-10); Neutrophil % 59.2 % (47-70); Platelet Count 216 K/mm3 (150-450); RBC Distribution Width CV 14.4 % (11.6-14.6); RBC Distribution Width SD 46.1 fl (35.1-43.9); Red Blood Count 4.62 M/mm3 (4.6-6.2); White Blood Count 5.1 K/mm3 (4.4-11.0)
[2018-11-20 17:52] LABS: POSITIVE COUNT NO; POSITIVE DIFFERENTIAL NO; POSITIVE MORPHOLOGY NO
[2018-11-20 17:58] LABS: Squamous Epithelial Cells - UA 0 SEEN /hpf (0-5)
[2018-11-20 18:00] VITALS: BP 160/79; PULSE 85; RESP 16; O2SAT 97
[2018-11-20 18:04] LABS: AST(SGOT) 17 U/L (15-37); Alanine Aminotransfer ALT/SGPT 33 U/L (16-61); Albumin, Serum 3.9 g/dL (3.2-5.0); Alkaline Phosphatase 77 U/L (45-117); Anion Gap 8 (5-15); BUN 25 mg/dL (7-18); BUN/Creat Ratio 29.3 RATIO (10-20); Bilirubin, Direct 0.14 mg/dL (0.00-0.30); Calcium,Total 9.2 mg/dL (8.5-10.1); Chloride 104 mmol/L (98-107); Creatinine, Serum 0.85 mg/dL (0.70-1.30); EST Glomerular Filtration Rate 94 mL/min (>60); Est Glom Filt Rate - Afr Amer 113 mL/min (>60); Estimated Creatinine Clearance 77.61 ml/min; Globulin 3.7 g/dL (2.2-4.2); Glucose 152 mg/dL (74-106); Potassium 3.7 mmol/L (3.5-5.1); Protein, Total 7.6 g/dL (6.4-8.2); Sodium Level 140 mmol/L (136-145)
[2018-11-20 18:12] LABS: Color, Urine Yellow (Yellow); Glucose, Dipstick Normal (Normal); Ketone-Dipstick 50 mg/dl (Negative); Leukocyte Esterase-Dipstick 500 /ul (Negative); Nitrite-Dipstick Positive (Negative); Occult Blood-Urine 250 /ul (Negative); Protein-Dipstick 100 mg/dl (Negative); Urine Bilirubin Dipstick Negative (Negative); Urine Clarity Cloudy (Clear); Urine Urobilinogen Normal (Normal)
[2018-11-20 18:22] LABS: Bacteria RARE /hpf (None Seen); Mucous, Urine RARE /hpf (<or=2+); Red Blood Cells-Urine > 100 SEEN /hpf (0-5); White Blood Cells 25-50 SEEN /hpf (0-5)
[2018-11-20 18:38] LABS: CPK Total, Creatine Kinase 47 U/L (39-308)
[2018-11-20 19:21] VITALS: BMI 22.1
--- NOTE | 2018-11-20 19:23 | PCM.HP.STD ---
Problem List (1) Bilateral leg weakness Status: Acute History of Present Illness Date of Admission: 11/20/18 Chief Complaint: BILATERAL LEG WEAKNESS The patient is a 73 year old M with a significant history of diabetes mellitus; hypertension; who presented to the emergency department with 2 weeks of progressively worsening bilateral lower extremity weakness and numbness. At baseline patient has bilateral feet numbness, right greater than left. Patient reports that his bilateral foot numbness has been progressively moving up.. He was found unresponsive in September 2018 and was diagnosed with DKA and was comatose for about 3 days. During that admission he had pneumonia and UTI. He was admitted to outside hospital at that time. He ended up being discharged to a rehab unit. Because of insurance issues he was discharged home while still using a walker and with human assistance via a gait belt. Patient and family report that ever since patient was discharged home he has had progressively decreased ability to stand on his feet and to walk even with a walker. Because of his ability to walk he had an MRI of his lumbar spine on November 17 2018 and it showed multiple levels of spinal stenosis. Emergency department doctor considered ruling out Elsi Parsons? with lumbar puncture. However because of the significant spinal stenosis emergency department doctor thought that lumbar puncture will best be done under fluoroscopic guidance. On this presentation patient was found to have abnormal urinalysis but he denies any urinary symptoms. Past Medical History Past Medical History (Chronic Problems): Chronic Problems Rheumatoid arthritis (Chronic) Melanoma (Chronic) Depression (Chronic) Hypertension (Chronic) TIA (transient ischemic attack) (Chronic) Stroke (Chronic) Allergies No Known Allergies Allergy (Verified 11/20/18 15:47) Home Medications: Ambulatory Orders Medication Instructions Recorded Acetaminophen [Tylenol] 1,000 mg PO Q6H PRN tablet 10/03/18 Aspirin [Aspir 81] 81 mg PO DAILY #30 tablet. 10/03/18 Divalproex Sodium 250 mg PO BID 11/20/18 Donepezil HCl [Aricept] 5 mg PO DAILY 11/20/18 Duloxetine Hcl [Cymbalta] 30 mg PO QHS 11/20/18 Insulin Glargine [Lantus SoloStar 20 units SC BID 11/20/18 Pen] Lisinopril 20 mg PO DAILY 11/20/18 Metformin HCl 500 mg PO BID 11/20/18 Pioglitazone HCl 30 mg PO DAILY 11/20/18 Surgical History: tonsillectomy, - - Inguinal hernia repair Psychiatric History: Depression Lives: Spouse/ Significant Other Smoking Status: Never smoker Alcohol: Rare - *Family History Maternal History Items: Cancer - breast Paternal History Items: Cancer Review of Systems Constitutional: Denies: Chills, Fever, Weight Change HEENT: Denies: Head Aches, Sinus Congestion, Sinus Drainage Cardiovascular: Denies: Chest Pain, Palpitations Respiratory: Denies: Cough, Shortness of breath at rest, Sputum production Gastrointestinal: Denies: Abdominal Pain, Nausea, Vomiting Genitourinary: Denies: Dysuria Musculoskeletal: Denies: Joint Pain, Joint Tenderness Skin: Denies: Rash, Wounds Neurological: Reports: Numbness - bilateral legs. Denies: Headaches, Tingling Psychiatric: Denies: Anxiety, Depression, Homicidal Ideations, Suicidal Ideations Hematologic/ Lymphatic: Denies: Easy Bruising, Easy Bleeding VTE Information - Inpt Only VTE Present on Admission: No VTE Mechan Device Prophylaxis: None VTE Pharm Prophylaxis ordered?: Yes Patient Problems: Active and Suspected Problems Bilateral leg weakness (Acute) - Physical Exam General: Alert, Oriented x3, Cooperative HEENT: Atraumatic, PERRLA, EOMI, Normocephalic Neck: Supple, No JVD, Negative Carotid Bruits Lungs: Clear to auscultation, Normal air movement Cardiovascular: Regular rate, No murmurs Abdomen: Bowel Sounds Present, Soft, Non Tender Extremities: No edema, Capillary Refill Less than 3 Seconds Skin: No rashes, No breakdown Musculoskeletal: No Tenderness to Palpation of Joints or Extremities Neurological: Cranial nerves II-XII grossly intact, - - bilateral elbow reflex and bilateral knee reflexes not hyperreflexia; strengthy in right leg 1/5; strength in left leg 2/5. Decreased range of motion in both legs; right worse than left. Psych/Mental Status: Normal Affect, Appropriate Vital Signs Temp Pulse Resp BP Pulse Ox 97.9 F 85 16 160/79 H 97 11/20/18 15:44 11/20/18 18:00 11/20/18 18:00 11/20/18 18:00 11/20/18 18:00 Oxygen Delivery Method Room Air Weight: 69.853 kg Body Mass Index (BMI) 22.1 Laboratory Tests Past 24 Hrs 11/20/18 11/20/18 11/20/18 17:30 17:30 17:30 WBC 5.1 RBC 4.62 Hgb 13.9 Hct 40.9 MCV 88.5 MCH 30.1 MCHC 34.0 RDW 14.4 RDW Differential 46.1 H Plt Count 216 MPV 10.1 Immature Gran % (Auto) 0.200 Neut % (Auto) 59.2 Lymph % (Auto) 32.9 [place] % (Auto) 6.9 Eos % (Auto) 0.6 Baso % (Auto) 0.2 Absolute Neuts (auto) 3.0 Absolute Lymphs (auto) 1.67 Total Counted Not Reportable Sodium 140 Potassium 3.7 Chloride 104 Carbon Dioxide 28.0 Anion Gap 8 BUN 25 H Creatinine 0.85 Estim Creat Clear Calc 77.61 Est GFR (MDRD) Af Amer 113 Est GFR (MDRD) Non-Af 94 BUN/Creatinine Ratio 29.3 H Glucose 152 H Calcium 9.2 Total Bilirubin 0.50 Direct Bilirubin 0.14 AST 17 ALT 33 Alkaline Phosphatase 77 Total Creatine Kinase 47 Total Protein 7.6 Albumin 3.9 Globulin 3.7 Urine Color Urine Clarity Urine pH Ur Specific [place] Urine Protein Urine Glucose (UA) Urine Ketones Urine Occult Blood Urine Nitrite Urine Bilirubin Urine Urobilinogen Ur Leukocyte Esterase Urine RBC Urine WBC Ur Squamous Epith Cells Urine Bacteria Urine Mucus 11/20/18 17:52 WBC RBC Hgb Hct MCV MCH MCHC RDW RDW Differential Plt Count MPV Immature Gran % (Auto) Neut % (Auto) Lymph % (Auto) [place] % (Auto) Eos % (Auto) Baso % (Auto) Absolute Neuts (auto) Absolute Lymphs (auto) Total Counted Sodium Potassium Chloride Carbon Dioxide Anion Gap BUN Creatinine Estim Creat Clear Calc Est GFR (MDRD) Af Amer Est GFR (MDRD) Non-Af BUN/Creatinine Ratio Glucose Calcium Total Bilirubin Direct Bilirubin AST ALT Alkaline Phosphatase Total Creatine Kinase Total Protein Albumin Globulin Urine Color Yellow Urine Clarity Cloudy Urine pH 6.0 Ur Specific [place] 1.020 Urine Protein 100 H Urine Glucose (UA) Normal Urine Ketones 50 H Urine Occult Blood 250 H Urine Nitrite Positive H Urine Bilirubin Negative Urine Urobilinogen Normal Ur Leukocyte Esterase 500 H Urine RBC > 100 SEEN Urine WBC 25-50 SEEN Ur Squamous Epith Cells 0 SEEN Urine Bacteria RARE Urine Mucus RARE Assessment/Plan All Active Problems Acute encephalopathy (Acute) Diabetic keto-acidosis (Acute) Seizure disorder (Acute) Elevated troponin (Acute) Hypernatremia (Acute) Hyperglycemia (Acute) Community acquired pneumonia (Acute) Bilateral leg weakness (Acute) The patient is a 73 year old M with a significant history of diabetes mellitus; hypertension; who presented to the emergency department with 2 weeks of progressively worsening bilateral lower extremity weakness and numbness. Bilateral lower extremity weakness. Different diagnosis include spinal stenosis; or debility With his history of bilateral leg numbness, Guillain-Parsons? is possible but is less likely. PT and OT to work patient. Continue Cymbalta and valproic acid for bilateral leg pain and numbness. We will consult neurology to help with finding the etiology of his bilateral lower extremity weakness. Acute cystitis Although patient do not have any urinary symptoms because of his abnormal urinalysis and his symptoms of bilateral leg weakness will continue on Ceftriaxone that was started at emergency department. Urine cultures are pending Diabetes mellitus On presentation his blood glucose was within goal. We will hold on his home metformin since it is too early in his admission. Continue home Pioglitazone Will decrease his home dose of insulin glycine while we do Accu-Chek q. before meals at bedtime and with correction scale insulin. Hypertension On presentation his blood pressure was not within goal Lisinopril continued Trend blood pressure and adjust blood pressure medications. Dehydration Mild On admission his BUN was 25 (7-18) Received IVF at the emergency department Trend BMP DVT prophylaxis Subcutaneous Code Visit Inpatient E&M: 39424 Init Hosp L3
--- NOTE | 2018-11-20 19:27 | ED.RN ---
PT TOOK HOME MEDS PER DR CHRISTENSEN.
[2018-11-20] MEDS: Ceftriaxone 1 GM/50 ML BAG IV (20:22)
[2018-11-20 20:46] VITALS: BMI 21.8
[2018-11-20 21:19] VITALS: BP 166/89; PULSE 93; RESP 16; TEMP 37.3; O2SAT 99
[2018-11-20 21:46] LABS: Bedside Glucose 148 mg/dL (70-110)
[2018-11-20] MEDS: Acetaminophen 500 MG Tablet 1000 MG PO (21:49)
[2018-11-20] MEDS: DULoxetine Hcl 30 MG Capsule PO (21:50)
[2018-11-20] MEDS: Divalproex Sodium 250 MG Tablet PO (21:50)
[2018-11-20] MEDS: 0.9% NaCl Peripheral Flush Adult/Peds IV (22:01)
[2018-11-21 03:50] VITALS: BP 173/92; PULSE 72; RESP 16; TEMP 37.1; O2SAT 97
[2018-11-21 06:18] LABS: Anion Gap 5 (5-15); BUN 18 mg/dL (7-18); BUN/Creat Ratio 29.5 RATIO (10-20); Calcium,Total 8.8 mg/dL (8.5-10.1); Chloride 106 mmol/L (98-107); Creatinine, Serum 0.61 mg/dL (0.70-1.30); EST Glomerular Filtration Rate 138 mL/min (>60); Est Glom Filt Rate - Afr Amer 167 mL/min (>60); Estimated Creatinine Clearance 65.17 ml/min; Glucose 78 mg/dL (74-106); Potassium 3.3 mmol/L (3.5-5.1); Sodium Level 137 mmol/L (136-145)
[2018-11-21 07:30] LABS: Bedside Glucose 75 mg/dL (70-110)
[2018-11-21 07:45] VITALS: O2SAT 94
[2018-11-21 08:25] LABS: Magnesium 1.7 mg/dL (1.6-2.6)
[2018-11-21 08:36] VITALS: BP 172/91; PULSE 86; RESP 18; TEMP 36.8; O2SAT 99
[2018-11-21] MEDS: Aspirin E.C. 81 MG Tablet PO (08:55)
[2018-11-21] MEDS: Acetaminophen 500 MG Tablet 1000 MG PO (08:57)
[2018-11-21] MEDS: Lisinopril 20 MG Tablet PO (10:58)
[2018-11-21] MEDS: Divalproex Sodium 250 MG Tablet PO ×2 (10:58→21:24)
[2018-11-21] MEDS: Pioglitazone Hydrochloride 30 MG Tablet PO (10:58)
[2018-11-21] MEDS: Donepezil HCl 5 MG Tablet PO (10:58)
[2018-11-21] MEDS: Heparin Injection (Vial) 5,000 UNIT/ML VIAL 5000 UNIT SC ×2 (10:58→21:25)
[2018-11-21] MEDS: Glucerna Shake 120 ML LIQUID PO ×3 (11:07→21:25)
[2018-11-21] MEDS: Insulin Lispro 100 UNIT/ML INSULN.PEN SQ ×2 (11:34→21:25)
[2018-11-21 11:55] LABS: Bedside Glucose 161 mg/dL (70-110)
--- NOTE | 2018-11-21 11:55 | PCM.CONS.GEN ---
Reason for Consult Date of Consultation: 11/21/18 Reason for Consultation: LEG WEAKNESS History of Present Illness: The patient is a 73 year old M admitted to hospital for leg weakness, he says since sep, which is also when diabetes was diagnosed, apparently associated with DKA. denies symptoms symptoms in upper ext or changes in vision, speech, or swallowing. describes sharp stabbing pain in legs for months. reports tried meds but doesnt remember which. previously was able to golf and walk 3 miles/day. per admit note:The patient is a 73 year old M with a significant history of diabetes mellitus; hypertension; who presented to the emergency department with 2 weeks of progressively worsening bilateral lower extremity weakness and numbness. At baseline patient has bilateral feet numbness, right greater than left. Patient reports that his bilateral foot numbness has been progressively moving up.. He was found unresponsive in September 2018 and was diagnosed with DKA and was comatose for about 3 days. During that admission he had pneumonia and UTI. He was admitted to outside hospital at that time. He ended up being discharged to a rehab unit. Because of insurance issues he was discharged home while still using a walker and with human assistance via a gait belt. Patient and family report that ever since patient was discharged home he has had progressively decreased ability to stand on his feet and to walk even with a walker. Because of his ability to walk he had an MRI of his lumbar spine on November 17 2018 and it showed multiple levels of spinal stenosis. Emergency department doctor considered ruling out Skandia Parsons? with lumbar puncture. However because of the significant spinal stenosis emergency department doctor thought that lumbar puncture will best be done under fluoroscopic guidance. On this presentation patient was found to have abnormal urinalysis but he denies any urinary symptoms. Past Medical History Past Medical History (Chronic Problems): Chronic Problems Rheumatoid arthritis (Chronic) Melanoma (Chronic) Depression (Chronic) Hypertension (Chronic) TIA (transient ischemic attack) (Chronic) Stroke (Chronic) Allergies No Known Allergies Allergy (Verified 11/20/18 15:47) Home Medications: Ambulatory Orders Medication Instructions Recorded Acetaminophen [Tylenol] 1,000 mg PO Q6H PRN tablet 10/03/18 Aspirin [Aspir 81] 81 mg PO DAILY #30 tablet. 10/03/18 Divalproex Sodium 250 mg PO BID 11/20/18 Donepezil HCl [Aricept] 5 mg PO DAILY 11/20/18 Duloxetine Hcl [Cymbalta] 30 mg PO QHS 11/20/18 Insulin Glargine [Lantus SoloStar 20 units SC BID 11/20/18 Pen] Lisinopril 20 mg PO DAILY 11/20/18 Metformin HCl 500 mg PO BID 11/20/18 Pioglitazone HCl 30 mg PO DAILY 11/20/18 Surgical History: tonsillectomy, - - Inguinal hernia repair Psychiatric History: Depression Lives: Spouse/ Significant Other Smoking Status: Never smoker Tobacco Use: Non-smoker Alcohol: Rare - *Family History Maternal History Items: Cancer - breast Paternal History Items: Cancer Review of Systems Constitutional: Denies: Chills, Fever, Weight Change HEENT: Denies: Head Aches, Sinus Congestion, Sinus Drainage Cardiovascular: Denies: Chest Pain, Palpitations Respiratory: Denies: Cough, Shortness of breath at rest, Sputum production Gastrointestinal: Denies: Abdominal Pain, Nausea, Vomiting Genitourinary: Denies: Dysuria Musculoskeletal: Denies: Joint Pain, Joint Tenderness Skin: Denies: Rash, Wounds Neurological: Reports: Focal weakness, Numbness, Tingling Psychiatric: Denies: Anxiety, Depression, Homicidal Ideations, Suicidal Ideations Hematologic/ Lymphatic: Denies: Easy Bruising, Easy Bleeding Patient Problems: Active and Suspected Problems Bilateral leg weakness (Acute) - Physical Exam General: Alert, Oriented x3, Cooperative, No apparent distress HEENT: PERRLA, EOMI Neurological: Cranial nerves II-XII grossly intact Psych/Mental Status: Normal Affect, Alert and oriented to time, place, person, mood and affect Vital Signs Temp Pulse Resp BP Pulse Ox 36.8 C 86 18 172/91 H 99 11/21/18 08:36 11/21/18 08:36 11/21/18 08:36 11/21/18 08:36 11/21/18 08:36 Oxygen Delivery Method Room Air Weight: 69 kg Body Mass Index (BMI) 21.8 Intake and Output for Last 24 Hours 11/19/18 11/20/18 11/21/18 23:59 23:59 23:59 Intake Total 50 / 50 200 / 200 Output Total 100 / 100 100 / 100 Balance -50 / -50 100 / 100 Laboratory Tests Past 24 Hrs 11/20/18 11/20/1819 17:30 17:30 17:30 WBC 5.1 RBC 4.62 Hgb 13.9 Hct 40.9 MCV 88.5 MCH 30.1 MCHC 34.0 RDW 14.4 RDW Differential 46.1 H Plt Count 216 MPV 10.1 Immature Gran % (Auto) 0.200 Neut % (Auto) 59.2 Lymph % (Auto) 32.9 [place] % (Auto) 6.9 Eos % (Auto) 0.6 Baso % (Auto) 0.2 Absolute Neuts (auto) 3.0 Absolute Lymphs (auto) 1.67 Total Counted Not Reportable Sodium 140 Potassium 3.7 Chloride 104 Carbon Dioxide 28.0 Anion Gap 8 BUN 25 H Creatinine 0.85 Estim Creat Clear Calc 77.61 Est GFR (MDRD) Af Amer 113 Est GFR (MDRD) Non-Af 94 BUN/Creatinine Ratio 29.3 H Glucose 152 H Calcium 9.2 Magnesium Total Bilirubin 0.50 Direct Bilirubin 0.14 AST 17 ALT 33 Alkaline Phosphatase 77 Total Creatine Kinase 47 Total Protein 7.6 Albumin 3.9 Globulin 3.7 Urine Color Urine Clarity Urine pH Ur Specific [place] Urine Protein Urine Glucose (UA) Urine Ketones Urine Occult Blood Urine Nitrite Urine Bilirubin Urine Urobilinogen Ur Leukocyte Esterase Urine RBC Urine WBC Ur Squamous Epith Cells Urine Bacteria Urine Mucus 11/20/18 11/21/18 11/21/18 17:52 05:20 05:20 WBC RBC Hgb Hct MCV MCH MCHC RDW RDW Differential Plt Count MPV Immature Gran % (Auto) Neut % (Auto) Lymph % (Auto) [place] % (Auto) Eos % (Auto) Baso % (Auto) Absolute Neuts (auto) Absolute Lymphs (auto) Total Counted Sodium 137 Potassium 3.3 L Chloride 106 Carbon Dioxide 26.0 Anion Gap 5 BUN 18 Creatinine 0.61 L Estim Creat Clear Calc 65.17 Est GFR (MDRD) Af Amer 167 Est GFR (MDRD) Non-Af 138 BUN/Creatinine Ratio 29.5 H Glucose 78 Calcium 8.8 Magnesium 1.7 Total Bilirubin Direct Bilirubin AST ALT Alkaline Phosphatase Total Creatine Kinase Total Protein Albumin Globulin Urine Color Yellow Urine Clarity Cloudy Urine pH 6.0 Ur Specific [place] 1.020 Urine Protein 100 H Urine Glucose (UA) Normal Urine Ketones 50 H Urine Occult Blood 250 H Urine Nitrite Positive H Urine Bilirubin Negative Urine Urobilinogen Normal Ur Leukocyte Esterase 500 H Urine RBC > 100 SEEN Urine WBC 25-50 SEEN Ur Squamous Epith Cells 0 SEEN Urine Bacteria RARE Urine Mucus RARE POC Glucose 11/21/18 11/20/18 07:25 21:41 POC Glucose 75 148 H Assessment/Plan All Active Problems Acute encephalopathy (Acute) Diabetic keto-acidosis (Acute) Seizure disorder (Acute) Elevated troponin (Acute) Hypernatremia (Acute) Hyperglycemia (Acute) Community acquired pneumonia (Acute) Bilateral leg weakness (Acute)
--- NOTE | 2018-11-21 12:00 | CASEMGMT ---
RN CM GLUING PRESSMAN CM to room to meet with patient for initial transition planning/care coordination assessment. RN TAMARA introduced self and role at [facility]. Pt voices understanding and consents to assessment at this time. Pt resting in bed in no distress at this time. Pt is A/O at this time and answers all questions appropriately. Care providers, pharmacy, and demographics verified/updated at this time. PCP: [facility]: [facility] (was [facility] [facility]) Insurance: MMO, Anthchanelle MCR Living Will/HPOA: Has both LW and HCPOA, who is his , Bertha. LNOK: , Bertha. HHC/SNF: Was discharged home from TCU 10/04/18 w/[facility]. Pt states is still current with [facility]. Discussed pt's wishes on discharge. Pt wishes to go to a SNF on discharge for therapy. Pt states he may want to go back to [place] but he is also interested in going somewhere near [place]. Call placed to [facility] @ and they were notified pt admitted to [facility]. They were also made aware plans are for pt to discharge to SNF on discharge. CM to follow for further discharge planning/needs. Advised pt to ask for CM if any further questions/concerns/needs arise. Voices understanding. PLAN: SNF. Pt requesting list of SNF's close to [place] that are in Network. Ambrose PIERCE notified. Westley SCHULTZ RN, CM
--- NOTE | 2018-11-21 12:40 | PCM.PROGNOTE ---
<Filomena Cronin - Last Filed: 11/21/18 12:51> Patient Problems: Active and Suspected Problems Bilateral leg weakness (Acute) Subjective: Patient seen and examined. Complains of ongoing lower extremity weakness bilaterally. Denies other neurologic deficits. Otherwise feeling well. Reports he has had several falls at home since being discharged from SNF at the end of September 2018. - Physical Exam General: Alert, Oriented x3, Cooperative HEENT: Atraumatic, PERRLA, EOMI, Normocephalic Neck: Supple, No JVD, Negative Carotid Bruits Lungs: Clear to auscultation, Normal air movement Cardiovascular: Regular rate, Regular Rhythm, Normal S1, Normal S2, No murmurs Abdomen: Bowel Sounds Present, Soft, Non Tender, Non-Distended Extremities: No clubbing, No cyanosis, No edema, Capillary Refill Less than 3 Seconds Skin: No rashes, No breakdown Musculoskeletal: No Tenderness to Palpation of Joints or Extremities Neurological: Cranial nerves II-XII grossly intact, - - Bilateral lower extremity weakness, 2/5 bilaterally. Upper extremity 5/5 strength bilaterally. Psych/Mental Status: Normal Affect, Appropriate Vital Signs Temp Pulse Resp BP Pulse Ox 98.2 F 86 18 172/91 H 99 11/21/18 08:36 11/21/18 08:36 11/21/18 08:36 11/21/18 08:36 11/21/18 08:36 Oxygen Delivery Method Room Air Weight: 152 lb 1.903 oz Body Mass Index (BMI) 21.8 Intake and Output for Last 24 Hours 11/19/18 11/20/18 11/21/18 23:59 23:59 23:59 Intake Total 50 / 50 200 / 200 Output Total 100 / 100 100 / 100 Balance -50 / -50 100 / 100 Laboratory Tests Past 24 Hrs 11/20/18 11/20/18 11/20/18 17:30 17:30 17:30 WBC 5.1 RBC 4.62 Hgb 13.9 Hct 40.9 MCV 88.5 MCH 30.1 MCHC 34.0 RDW 14.4 RDW Differential 46.1 H Plt Count 216 MPV 10.1 Immature Gran % (Auto) 0.200 Neut % (Auto) 59.2 Lymph % (Auto) 32.9 [place] % (Auto) 6.9 Eos % (Auto) 0.6 Baso % (Auto) 0.2 Absolute Neuts (auto) 3.0 Absolute Lymphs (auto) 1.67 Total Counted Not Reportable Sodium 140 Potassium 3.7 Chloride 104 Carbon Dioxide 28.0 Anion Gap 8 BUN 25 H Creatinine 0.85 Estim Creat Clear Calc 77.61 Est GFR (MDRD) Af Amer 113 Est GFR (MDRD) Non-Af 94 BUN/Creatinine Ratio 29.3 H Glucose 152 H Calcium 9.2 Magnesium Total Bilirubin 0.50 Direct Bilirubin 0.14 AST 17 ALT 33 Alkaline Phosphatase 77 Total Creatine Kinase 47 Total Protein 7.6 Albumin 3.9 Globulin 3.7 Urine Color Urine Clarity Urine pH Ur Specific [place] Urine Protein Urine Glucose (UA) Urine Ketones Urine Occult Blood Urine Nitrite Urine Bilirubin Urine Urobilinogen Ur Leukocyte Esterase Urine RBC Urine WBC Ur Squamous Epith Cells Urine Bacteria Urine Mucus 11/20/18 11/21/18 11/21/18 17:52 05:20 05:20 WBC RBC Hgb Hct MCV MCH MCHC RDW RDW Differential Plt Count MPV Immature Gran % (Auto) Neut % (Auto) Lymph % (Auto) [place] % (Auto) Eos % (Auto) Baso % (Auto) Absolute Neuts (auto) Absolute Lymphs (auto) Total Counted Sodium 137 Potassium 3.3 L Chloride 106 Carbon Dioxide 26.0 Anion Gap 5 BUN 18 Creatinine 0.61 L Estim Creat Clear Calc 65.17 Est GFR (MDRD) Af Amer 167 Est GFR (MDRD) Non-Af 138 BUN/Creatinine Ratio 29.5 H Glucose 78 Calcium 8.8 Magnesium 1.7 Total Bilirubin Direct Bilirubin AST ALT Alkaline Phosphatase Total Creatine Kinase Total Protein Albumin Globulin Urine Color Yellow Urine Clarity Cloudy Urine pH 6.0 Ur Specific [place] 1.020 Urine Protein 100 H Urine Glucose (UA) Normal Urine Ketones 50 H Urine Occult Blood 250 H Urine Nitrite Positive H Urine Bilirubin Negative Urine Urobilinogen Normal Ur Leukocyte Esterase 500 H Urine RBC > 100 SEEN Urine WBC 25-50 SEEN Ur Squamous Epith Cells 0 SEEN Urine Bacteria RARE Urine Mucus RARE POC Glucose 11/21/18 11/21/18 11/20/18 11:28 07:25 21:41 POC Glucose 161 H 75 148 H Medical Necessity - Tobacco Use Smoking Status: Never smoker Tobacco Use: Non-smoker Assessment/Plan All Active Problems Acute encephalopathy (Acute) Diabetic keto-acidosis (Acute) Seizure disorder (Acute) Elevated troponin (Acute) Hypernatremia (Acute) Hyperglycemia (Acute) Community acquired pneumonia (Acute) Bilateral leg weakness (Acute) 1. Bilateral lower extremity weakness, debility with falls at home, FTT-reports BLLE numbness/tingling as well. Lumbar spine MRI 11/17/2018 with no evidence of acute fractures or fixation. Spinal stenosis at L3-L4, L4-L5, and L5-S1 secondary to disc disease and bony hypertrophy. Neurology consulted. PT/OT/ST. 2. Acute cystitis-UA positive, initiated on IV Rocephin. Follow culture. 3. Type 2 diabetes mellitus-hold home oral regimen. Continue home Lantus regimen. Accu-Cheks AC at bedtime with sliding scale insulin. 4. Mild cognitive impairment-continue home donepezil regimen. 5. Hypertension-stable, continue home lisinopril regimen. 6. Depression-continue duloxetine regimen. 7. Neuropathy-on divalproex. DVT prophylaxis-heparin subcu This patient was seen by MIGUEL Almanza under the supervision of Dr. Diaz. <Dougie Diaz - Last Filed: 11/21/18 14:23> Subjective: Still with LE weakness. - Physical Exam General: Alert, Cooperative HEENT: Atraumatic, Normocephalic Oral: Moist Mucosa, No Gingival or Mucosal Lesions/ Ulcerations Neck: No Nodes, Thyroid Normal Size and Texture Lungs: Clear to auscultation, Normal air movement, No rhonchi, No wheeze Cardiovascular: Regular rate, Regular Rhythm, Normal S1, Normal S2, No murmurs Abdomen: Bowel Sounds Present, Soft, Non Tender, Non-Distended Extremities: No edema, No Calf Tenderness Skin: No rashes, No breakdown Neurological: Cranial nerves II-XII grossly intact, - Psych/Mental Status: Normal Affect, Appropriate Vital Signs Temp Pulse Resp BP Pulse Ox 36.8 C 86 18 172/91 H 99 11/21/18 08:36 11/21/18 08:36 11/21/18 08:36 11/21/18 08:36 11/21/18 08:36 Oxygen Delivery Method Room Air Weight: 69 kg Body Mass Index (BMI) 21.8 Intake and Output for Last 24 Hours 11/19/18 11/20/18 11/21/18 23:59 23:59 23:59 Intake Total 50 / 50 640 / 640 Output Total 100 / 100 375 / 375 Balance -50 / -50 265 / 265 Laboratory Tests Past 24 Hrs 11/20/18 11/20/18 11/20/18 17:30 17:30 17:30 WBC 5.1 RBC 4.62 Hgb 13.9 Hct 40.9 MCV 88.5 MCH 30.1 MCHC 34.0 RDW 14.4 RDW Differential 46.1 H Plt Count 216 MPV 10.1 Immature Gran % (Auto) 0.200 Neut % (Auto) 59.2 Lymph % (Auto) 32.9 [place] % (Auto) 6.9 Eos % (Auto) 0.6 Baso % (Auto) 0.2 Absolute Neuts (auto) 3.0 Absolute Lymphs (auto) 1.67 Total Counted Not Reportable Sodium 140 Potassium 3.7 Chloride 104 Carbon Dioxide 28.0 Anion Gap 8 BUN 25 H Creatinine 0.85 Estim Creat Clear Calc 77.61 Est GFR (MDRD) Af Amer 113 Est GFR (MDRD) Non-Af 94 BUN/Creatinine Ratio 29.3 H Glucose 152 H Calcium 9.2 Magnesium Total Bilirubin 0.50 Direct Bilirubin 0.14 AST 17 ALT 33 Alkaline Phosphatase 77 Total Creatine Kinase 47 Total Protein 7.6 Albumin 3.9 Globulin 3.7 Urine Color Urine Clarity Urine pH Ur Specific [place] Urine Protein Urine Glucose (UA) Urine Ketones Urine Occult Blood Urine Nitrite Urine Bilirubin Urine Urobilinogen Ur Leukocyte Esterase Urine RBC Urine WBC Ur Squamous Epith Cells Urine Bacteria Urine Mucus 11/20/18 11/21/18 11/21/18 17:52 05:20 05:20 WBC RBC Hgb Hct MCV MCH MCHC RDW RDW Differential Plt Count MPV Immature Gran % (Auto) Neut % (Auto) Lymph % (Auto) [place] % (Auto) Eos % (Auto) Baso % (Auto) Absolute Neuts (auto) Absolute Lymphs (auto) Total Counted Sodium 137 Potassium 3.3 L Chloride 106 Carbon Dioxide 26.0 Anion Gap 5 BUN 18 Creatinine 0.61 L Estim Creat Clear Calc 65.17 Est GFR (MDRD) Af Amer 167 Est GFR (MDRD) Non-Af 138 BUN/Creatinine Ratio 29.5 H Glucose 78 Calcium 8.8 Magnesium 1.7 Total Bilirubin Direct Bilirubin AST ALT Alkaline Phosphatase Total Creatine Kinase Total Protein Albumin Globulin Urine Color Yellow Urine Clarity Cloudy Urine pH 6.0 Ur Specific [place] 1.020 Urine Protein 100 H Urine Glucose (UA) Normal Urine Ketones 50 H Urine Occult Blood 250 H Urine Nitrite Positive H Urine Bilirubin Negative Urine Urobilinogen Normal Ur Leukocyte Esterase 500 H Urine RBC > 100 SEEN Urine WBC 25-50 SEEN Ur Squamous Epith Cells 0 SEEN Urine Bacteria RARE Urine Mucus RARE POC Glucose 11/21/18 11/21/18 11/20/18 11:28 07:25 21:41 POC Glucose 161 H 75 148 H Assessment/Plan Patient seen and examined independently. Data reviewed. I agree with the above note by the nurse practitioner. 1. LE weakness MRI L spine was negative neurology consult EMG/NCT ordered neurology on consult Code Visit Inpatient E&M: 14321 Subs Hosp L3
--- NOTE | 2018-11-21 13:30 | CPS ---
WENT TO PATIENT'S ROOM TO DO NCS ORDERED BY DR BELTRAN. TESTING PROCEDURE EXPLAINED TO PATIENT AND QUESTIONS ANSWERED. PATIENT ASKED REPEATEDLY IS THIS TEST GOING TO TAKE MY PAIN AWAY? I RE-EXPLAINED THIS WAS A TEST TO HELP GUIDE HIS TREATMENT. AFTER BEGINNING THE PROCEDURE, PATIENT BEGAN SAYING HOW PAINFUL IT WAS AND REFUSED TO ALLOW ME TO CONTINUE. THE LIMITED INFO I WAS ABLE TO OBTAIN WAS PRINTED OFF AND GIVEN TO STAFF IN DR. BELTRAN'S OFFICE. I ALSO MADE BERTHA SHERIDAN'S RN AWARE OF HIS REFUSAL TO COMPLETE TESTING.
--- NOTE | 2018-11-21 13:36 | CASEMGMT ---
Social Work Note SW received consult from RN TAMARA Damon for SNF placement. SW met with pt, introduced self and role at [facility]. Pt is alert and orientated x3. SW provided pt with list of SNF in network with his insurance and highlighted SNF in [facility] for pt. SW encouraged pt to review list and this worker will speak with pt tomorrow regarding SNF. SW encouraged pt to have a couple different options for SNF. Pt states understanding. Plan: SNF pending acceptance and pre-cert Ana Fajardo SALES MANAGER [employer], MOLDING CUTTER
--- NOTE | 2018-11-21 13:40 | CASEMGMT ---
Social Work Note Per inspector brake lining questions pt has HCPOA and LW but hasn't provided copies to [facility] and is unable to bring in copies. Ana Fajardo SENIOR SAS PROGRAMMER, COUNSELOR AIDE
[2018-11-21 14:55] VITALS: BP 179/95; PULSE 84; RESP 16; TEMP 36.8; O2SAT 98
[2018-11-21] MEDS: 0.9% NaCl Peripheral Flush Adult/Peds IV ×2 (15:22→21:26)
[2018-11-21 15:55] LABS: Bedside Glucose 127 mg/dL (70-110)
[2018-11-21] MEDS: DULoxetine Hcl 30 MG Capsule PO (21:25)
[2018-11-21] MEDS: Ceftriaxone 1 GM/50 ML BAG IV (21:26)
[2018-11-21 21:38] VITALS: BP 155/89; PULSE 90; RESP 18; TEMP 36.6; O2SAT 98
[2018-11-21 21:40] LABS: Bedside Glucose 224 mg/dL (70-110)
[2018-11-22 03:16] VITALS: BP 148/91; PULSE 93; RESP 18; TEMP 37.3; O2SAT 98
[2018-11-22 06:05] LABS: Anion Gap 8 (5-15); BUN 17 mg/dL (7-18); BUN/Creat Ratio 20.2 RATIO (10-20); Calcium,Total 9.1 mg/dL (8.5-10.1); Chloride 106 mmol/L (98-107); Creatinine, Serum 0.84 mg/dL (0.70-1.30); EST Glomerular Filtration Rate 95 mL/min (>60); Est Glom Filt Rate - Afr Amer 115 mL/min (>60); Estimated Creatinine Clearance 77.58 ml/min; Glucose 172 mg/dL (74-106); Sodium Level 139 mmol/L (136-145)
[2018-11-22 07:14] VITALS: O2SAT 96
[2018-11-22] MEDS: Aspirin E.C. 81 MG Tablet PO (07:39)
[2018-11-22] MEDS: Acetaminophen 500 MG Tablet 1000 MG PO ×2 (07:39→15:54)
[2018-11-22] MEDS: Insulin Lispro 100 UNIT/ML INSULN.PEN SQ ×4 (07:40→21:05)
--- NOTE | 2018-11-22 09:24 | CASEMGMT ---
RN CM NOTE: Reviewed [place] form with pt and questions answered. Form signed by pt, copy made and placed on chart, and original given to pt. Westley SCHULTZ RN CM
[2018-11-22 09:53] VITALS: BP 173/93; PULSE 97; RESP 16; TEMP 36.6; O2SAT 97
[2018-11-22] MEDS: Donepezil HCl 5 MG Tablet PO (10:10)
[2018-11-22] MEDS: Lisinopril 20 MG Tablet PO (10:10)
[2018-11-22] MEDS: Divalproex Sodium 250 MG Tablet PO ×2 (10:10→21:04)
[2018-11-22] MEDS: Pioglitazone Hydrochloride 30 MG Tablet PO (10:10)
[2018-11-22] MEDS: Heparin Injection (Vial) 5,000 UNIT/ML VIAL 5000 UNIT SC ×2 (10:11→21:04)
[2018-11-22] MEDS: 0.9% NaCl Peripheral Flush Adult/Peds IV ×2 (10:11→21:06)
[2018-11-22] MEDS: Glucerna Shake 120 ML LIQUID PO ×4 (10:12→21:04)
[2018-11-22 10:13] VITALS: BP 173/93; PULSE 97
[2018-11-22] MEDS: hydrALAZINE 20 MG/ML Vial 10 MG IV (10:13)
[2018-11-22 12:10] LABS: Bedside Glucose 245 mg/dL (70-110)
--- NOTE | 2018-11-22 12:18 | CASEMGMT ---
Social Work Note SW met with pt to confirm discharge plans. SW asked pt if he had the chance to review SNF list. Pt states no. SW informed pt that he will need to have a decisions by today so this worker can make referral and being pre-cert today. Pt states I will have a decision by this afternoon. SW informed pt that this worker will be back in the afternoon to get pt's decision regarding SNF. Pt states understanding. Plan: SNF pending acceptance and pre-cert Ana Fajardo COOK MANAGER, MECHANICAL SYSTEM TECHNICIAN
[2018-11-22] MEDS: Ibuprofen 600 MG Tablet PO ×2 (13:16→21:09)
--- NOTE | 2018-11-22 13:19 | PCM.PN.HOSP ---
Patient Problems: Active and Suspected Problems Bilateral leg weakness (Acute) Subjective: Still with LE weakness. No issues with his upper extremities. Objective: Patient was talking about 2011 where he had chest pain and had a false heart attack. I tried to inquire as to why he is asked to bring up this topic that appears to have no relation was going on right now he was unable to articulate that. We just talked about his friend aRghu and I asked him why he would bring that up. Patient also went talking about all using the same hospital to resolve completely diagnosed and figure out. Vitals/I&O's: Vital Signs Temp Pulse Resp BP Pulse Ox 36.6 C 97 16 173/93 H 97 11/22/18 09:53 11/22/18 10:13 11/22/18 09:53 11/22/18 10:13 11/22/18 09:53 Oxygen Delivery Method Room Air Weight: 69 kg Body Mass Index (BMI) 21.8 Intake and Output for Last 24 Hours 11/20/18 11/21/18 11/22/18 23:59 23:59 23:59 Intake Total 50 / 50 1118 / 1118 176 / 176 Output Total 100 / 100 925 / 925 500 / 500 Balance -50 / -50 193 / 193 -324 / -324 General: Alert, No apparent distress HEENT: Atraumatic, Normocephalic Oral: Moist Mucosa, No Gingival or Mucosal Lesions/ Ulcerations Extremities: No edema, No Calf Tenderness Skin: No rashes, No breakdown Musculoskeletal: No Tenderness to Palpation of Joints or Extremities, No Muscle Wasting Neurological: - - Downward going Babinski bilaterally. Patient seen voluntarily wiggling his toes while I was in the room. When I performed the Babinski, patient which are both lower extremities away and flexes hips and knees. Psych/Mental Status: Normal Affect, Appropriate Microbiology Past 72 Hours 11/20/18 20:19 Urine, Random Urine Culture - Final Mixed Gram Positive Organisms Laboratory Results 11/21/18 15:49: POC Glucose 127 H 11/21/18 21:20: POC Glucose 224 H 11/22/18 05:28: Sodium 139, Potassium 4.0, Chloride 106, Carbon Dioxide 25.0, Anion Gap 8, BUN 17, Creatinine 0.84, Estim Creat Clear Calc 77.58, Est GFR (MDRD) Af Amer 115, Est GFR (MDRD) Non-Af 95, BUN/Creatinine Ratio 20.2 H, Glucose 172 H, Calcium 9.1 11/22/18 11:49: POC Glucose 245 H Current Medications Acetaminophen (Tylenol) 1,000 mg PO Q6H PRN PRN PRN Reason: MILD PAIN (1-3) Last Admin: 11/22/18 07:39 Dose: 1,000 mg Aspirin (Ecotrin) [facility] Last Admin: 11/22/18 07:39 Dose: 81 mg Dextrose (D50w Syringe) 0 gm IV X1 PRN; Protocol PRN Reason: Hypoglycemia Divalproex Sodium (Depakote) 250 mg PO BID [facility] Last Admin: 11/22/18 10:10 Dose: 250 mg Donepezil HCl (Aricept) 5 mg PO DAILY [facility] Last Admin: 11/22/18 10:10 Dose: 5 mg Duloxetine HCl (Cymbalta) 30 mg PO QHS [facility] Last Admin: 11/21/18 21:25 Dose: 30 mg Glucagon () 1 mg IM .X1 PRN PRN Reason: Hypoglycemia Heparin Sodium (Porcine) (Heparin Na) 5,000 unit SC Q12 [facility] Last Admin: 11/22/18 10:11 Dose: 5,000 unit Hydralazine HCl (Apresoline Iv) 10 mg IV Q4H PRN PRN PRN Reason: BLOOD PRESSURE Last Admin: 11/22/18 10:13 Dose: 10 mg Ceftriaxone Sodium (Rocephin) 1 gm in 50 mls @ 100 mls/hr IV Q24@2200 [facility] Last Admin: 11/21/18 21:26 Dose: 100 mls/hr Sodium Chloride () 250 mls @ 15 mls/hr IV .[id number] PRN PRN Reason: SALINE FLUSH Ibuprofen (Motrin) 600 mg PO Q8H PRN PRN PRN Reason: PAIN Last Admin: 11/22/18 13:16 Dose: 600 mg Insulin Glargine (Lantus (Bkc)) 15 units SC BID [facility] Last Admin: 11/22/18 10:12 Dose: 15 u Insulin Human Lispro (Humalog Kwikpen (Bkc)) 0 unit SQ ACHS [facility]; Protocol Last Admin: 11/22/18 11:51 Dose: 2 units Lisinopril (Zestril) 20 mg PO DAILY [facility] Last Admin: 11/22/18 10:10 Dose: 20 mg Nutritional Formula (Lactose Free) (Glucerna Shake) 120 ml PO 4X/DAY [facility] Last Admin: 11/22/18 13:17 Dose: 120 ml Pioglitazone HCl (Actos) 30 mg PO DAILY [facility] Last Admin: 11/22/18 10:10 Dose: 30 mg Sodium Chloride () 5 - 15 ml IV UD PRN PRN Reason: SALINE FLUSH Last Admin: 11/22/18 10:11 Dose: 10 ml Medical Necessity - Tobacco Use Smoking Status: Never smoker Tobacco Use: Non-smoker Assessment/Plan All Active Problems Acute encephalopathy (Acute) Diabetic keto-acidosis (Acute) Seizure disorder (Acute) Elevated troponin (Acute) Hypernatremia (Acute) Hyperglycemia (Acute) Community acquired pneumonia (Acute) Bilateral leg weakness (Acute) 1. LE weakness MRI L spine was negative neurology consult EMG/NCT ordered neurology on consult Exam inconsistent Concern for possible conversion disorder versus factitious 2. DVT prophylaxis: Heparin Code Visit Inpatient E&M: 54158 Subs Hosp L2
--- NOTE | 2018-11-22 13:24 | PN_ITS ---
Patient Problems: Active and Suspected Problems Bilateral leg weakness (Acute) Subjective: Still with LE weakness. No issues with his upper extremities. Objective: Patient was talking about 2011 where he had chest pain and had a false heart attack. I tried to inquire as to why he is asked to bring up this topic that appears to have no relation was going on right now he was unable to articulate that. We just talked about his friend Raghu and I asked him why he would bring that up. Patient also went talking about all using the same hospital to resolve completely diagnosed and figure out. Vitals/I&O's: Vital Signs Temp Pulse Resp BP Pulse Ox 36.6 C 97 16 173/93 H 97 11/22/18 09:53 11/22/18 10:13 11/22/18 09:53 11/22/18 10:13 11/22/18 09:53 Oxygen Delivery Method Room Air Weight: 69 kg Body Mass Index (BMI) 21.8 Intake and Output for Last 24 Hours 11/20/18 11/21/18 11/22/18 23:59 23:59 23:59 Intake Total 50 / 50 1118 / 1118 176 / 176 Output Total 100 / 100 925 / 925 500 / 500 Balance -50 / -50 193 / 193 -324 / -324 General: Alert, No apparent distress HEENT: Atraumatic, Normocephalic Oral: Moist Mucosa, No Gingival or Mucosal Lesions/ Ulcerations Extremities: No edema, No Calf Tenderness Skin: No rashes, No breakdown Musculoskeletal: No Tenderness to Palpation of Joints or Extremities, No Muscle Wasting Neurological: - - Downward going Babinski bilaterally. Patient seen voluntarily wiggling his toes while I was in the room. When I performed the Babinski, pat ient which are both lower extremities away and flexes hips and knees. Psych/Mental Status: Normal Affect, Appropriate Microbiology Past 72 Hours 11/20/18 20:19 Urine, Random Urine Culture - Final Mixed Gram Positive Organisms Laboratory Results 11/21/18 15:49: POC Glucose 127 H 11/21/18 21:20: POC Glucose 224 H 11/22/18 05:28: Sodium 139, Potassium 4.0, Chloride 106, Carbon Dioxide 25.0, Anion Gap 8, BUN 17, Creatinine 0.84, Estim Creat Clear Calc 77.58, Est GFR (MDRD) Af Amer 115, Est GFR (MDRD) Non-Af 95, BUN/Creatinine Ratio 20.2 H, Glucose 172 H, Calcium 9.1 11/22/18 11:49: POC Glucose 245 H Current Medications Acetaminophen (Tylenol) 1,000 mg PO Q6H PRN PRN PRN Reason: MILD PAIN (1-3) Last Admin: 11/22/18 07:39 Dose: 1,000 mg [facility] Last Admin: 11/22/18 07:39 Dose: 81 mg Dextrose (D50w Syringe) 0 gm IV X1 PRN; Protocol PRN Reason: Hypoglycemia Divalproex Sodium (Depakote) 250 mg PO BID [facility] Last Admin: 11/22/18 10:10 Dose: 250 mg Donepezil HCl (Aricept) 5 mg PO DAILY [facility] Last Admin: 11/22/18 10:10 Dose: 5 mg Duloxetine HCl (Cymbalta) 30 mg PO QHS [facility] Last Admin: 11/21/18 21:25 Dose: 30 mg Glucagon () 1 mg IM .X1 PRN PRN Reason: Hypoglycemia Heparin Sodium (Porcine) (Heparin Na) 5,000 unit SC Q12 [facility] Last Admin: 11/22/18 10:11 Dose: 5,000 unit Hydralazine HCl (Apresoline Iv) 10 mg IV Q4H PRN PRN PRN Reason: BLOOD PRESSURE Last Admin: 11/22/18 10:13 Dose: 10 mg Ceftriaxone Sodium (Rocephin) 1 gm in 50 mls @ 100 mls/hr IV Q24@2200 [facility] Last Admin: 11/21/18 21:26 Dose: 100 mls/hr Sodium Chloride () 250 mls @ 15 mls/hr IV .[id number] PRN PRN Reason: SALINE FLUSH Ibuprofen (Motrin) 600 mg PO Q8H PRN PRN PRN Reason: PAIN Last Admin: 11/22/18 13:16 Dose: 600 mg Insulin Glargine (Lantus (Bkc)) 15 units SC BID [facility] Last Admin: 11/22/18 10:12 Dose: 15 u Insulin Human Lispro (Humalog Kwikpen (Bkc)) 0 unit SQ ACHS [facility]; Protocol Last Admin: 11/22/18 11:51 Dose: 2 units Lisinopril (Zestril) 20 mg PO DAILY [facility] Last Admin: 11/22/18 10:10 Dose: 20 mg Nutritional Formula (Lactose Free) (Glucerna Shake) 120 ml PO 4X/DAY [facility] Last Admin: 11/22/18 13:17 Dose: 120 ml Pioglitazone HCl (Actos) 30 mg PO DAILY [facility] Last Admin: 11/22/18 10:10 Dose: 30 mg Sodium Chloride () 5 - 15 ml IV UD PRN PRN Reason: SALINE FLUSH Last Admin: 11/22/18 10:11 Dose: 10 ml Medical Necessity - Tobacco Use Smoking Status: Never smoker Tobacco Use: Non-smoker Assessment/Plan All Active Problems Acute encephalopathy (Acute) Diabetic keto-acidosis (Acute) Seizure disorder (Acute) Elevated troponin (Acute) Hypernatremia (Acute) Hyperglycemia (Acute) Community acquired pneumonia (Acute) Bilateral leg weakness (Acute) 1. LE weakness * MRI L spine was negative * neurology consult * EMG/NCT ordered * neurology on consult * Exam inconsistent * Concern for possible conversion disorder versus factitious 2. DVT prophylaxis: Heparin Code Visit Inpatient E&M: 28716 Subs Hosp L2
[2018-11-22 15:50] VITALS: BP 147/69; PULSE 99; RESP 18; TEMP 36.8; O2SAT 98
--- NOTE | 2018-11-22 16:43 | CASEMGMT ---
Social Work Note SW received message from Ilana at [facility] requesting call back. KARI attempted to call Ilana, left voicemail. SW to follow up with Ilana tomorrow in regards to referral. Plan: SNF pending acceptance and pre-cert. Ana Fajardo GEOSPATIAL APPLICATIONS DEVELOPER, CHECK EXAMINER
[2018-11-22 17:21] LABS: Bedside Glucose 231 mg/dL (70-110)
[2018-11-22] MEDS: DULoxetine Hcl 30 MG Capsule PO (21:04)
[2018-11-22] MEDS: Ceftriaxone 1 GM/50 ML BAG IV (21:06)
[2018-11-22 21:15] VITALS: BP 137/89; PULSE 94; RESP 18; TEMP 37.1; O2SAT 98
[2018-11-22 22:05] LABS: Bedside Glucose 242 mg/dL (70-110)
[2018-11-23 06:58] VITALS: O2SAT 97
[2018-11-23] MEDS: Pioglitazone Hydrochloride 30 MG Tablet PO (08:27)
[2018-11-23] MEDS: Aspirin E.C. 81 MG Tablet PO (08:27)
[2018-11-23] MEDS: Divalproex Sodium 250 MG Tablet PO ×2 (08:28→21:09)
[2018-11-23] MEDS: Insulin Lispro 100 UNIT/ML INSULN.PEN SQ ×3 (08:28→21:19)
[2018-11-23] MEDS: Donepezil HCl 5 MG Tablet PO (08:28)
[2018-11-23 08:51] LABS: Bedside Glucose 165 mg/dL (70-110)
[2018-11-23 10:15] VITALS: BP 102/61; PULSE 110; RESP 18; TEMP 37.1; O2SAT 97
[2018-11-23] MEDS: Ibuprofen 600 MG Tablet PO (10:17)
[2018-11-23] MEDS: Lisinopril 20 MG Tablet PO (10:17)
[2018-11-23] MEDS: Heparin Injection (Vial) 5,000 UNIT/ML VIAL 5000 UNIT SC ×2 (10:17→21:09)
--- NOTE | 2018-11-23 10:37 | CASEMGMT ---
Social Work Note KARI placed a call to Ilana at [facility]. Per Ilana she can only offer pt semi-private room and can place pt on wait list for private room but there is a 4 person wait list already for private room. KARI informed Ilana will talk with family and let her know what family decides. KARI met with pt and pt's Bertha in room. KARI introduced self and role at [facility]. Pt is alert and orientated does have some dementia. KARI updated Bertha on [facility] bed availability. Bertha asked this worker to check with [facility]. KARI explained referral process and that pt will need pre-cert. Bertha states that staff came in yesterday and spoke with pt regarding insurance stay at [facility], asked for staff to come back in and talk to her. KARI explained can ask CM to talk with her regarding insurance and pt stay. Pt is currently in observation. RN TAMARA Angulo updated. KARI placed a call to [facility], left message for Shannon in admissions regarding referral. KARI faxed referral. KARI waiting for call back. Plan: SNF pending acceptance and pre-cert Ana Fajardo MEDICAID ANALYST, TEACHER ASSISTANT
[2018-11-23] MEDS: Acetaminophen 500 MG Tablet 1000 MG PO (12:33)
[2018-11-23] MEDS: Glucerna Shake 120 ML LIQUID PO ×2 (12:33→21:10)
[2018-11-23 12:35] LABS: Bedside Glucose 174 mg/dL (70-110)
--- NOTE | 2018-11-23 12:50 | CASEMGMT ---
Social Work Note SW received message from Aby at [facility] who states they don't have any beds available at this time. SW update pt and pt's Bertha of this. Pt and Bertha agreeable to semi-private room at [facility]. SW placed a call to Ilana, left message, informing her to submit for pre-cert. Plan: [facility] pending pre-cert Ana Fajardo RELATIONSHIP COUNSELOR, APPLIED PSYCHOLOGY PROFESSOR
--- NOTE | 2018-11-23 14:39 | PCM.TXEXTCAR ---
- Diet 11/20/18 22:34 Diabetic [Diet: Calorie Controlled] Type of Dietary Supplement:: Glucerna Shake Is pt able to select menu?: Yes Diet Comments: Cardaic diet How many daily calories?: 1800 calorie - Routine Orders/Code Status Routine Lab Work: BMP Code Status: Full Code - Therapies Weight Bearing: Full weight bearing Physical Therapy: Eval and Treat Occupational Therapy: Eval and Treat - Allergies/Procedures Done in Hospital Allergies/Adverse Reactions: Allergies No Known Allergies Allergy (Verified 11/20/18 15:47) Procedures: None - Type of Care/Length of Stay Estimated LOS: Convalescent Care Less Than 30 days Type of Care Needed: Skilled Rehab Potential: Fair Prognosis: Fair - Additional Orders/Day of Discharge Day of Discharge: 11/23/18 - Dietary and Speech Recommendations Dietitian Recommendations/Changes: Recommend change to carb controlled, cardiac diet. Continue glucerna shake at [facility] to provide extra pro/calories if consumed. - Follow Up Care Primary Care Physician: Bolivar Kiran Chi, MD [Primary Care Provider] - Within 2 Weeks
--- NOTE | 2018-11-23 14:40 | PCM.PN.HOSP ---
Patient Problems: Active and Suspected Problems Bilateral leg weakness (Acute) Subjective: Still with weakness. Vitals/I&O's: Vital Signs Temp Pulse Resp BP Pulse Ox 37.1 C 110 H 18 102/61 97 11/23/18 10:15 11/23/18 10:15 11/23/18 10:15 11/23/18 10:15 11/23/18 10:15 Oxygen Delivery Method Room Air Weight: 69 kg Body Mass Index (BMI) 21.8 Intake and Output for Last 24 Hours 11/21/18 11/22/18 11/23/18 23:59 23:59 23:59 Intake Total 1118 / 1118 416 / 416 Output Total 925 / 925 1000 / 1000 350 / 350 Balance 193 / 193 -584 / -584 -350 / -350 General: Alert, No apparent distress, - - Still goes off on tangents about a lot of other topics that have been up and do with his legs. Seen with his legs flexed at the hips and knees. Seen actively moving his feet spontaneously. Was able to push himself up using his legs in the bed. Extremities: No edema, No Calf Tenderness Musculoskeletal: Cachexia, Muscle Wasting Neurological: - - No clonus. Patient slowly lowers his legs, it extends his legs. Psych/Mental Status: Normal Affect, Appropriate, - - Disheveled Microbiology Past 72 Hours 11/20/18 20:19 Urine, Random Urine Culture - Final Mixed Gram Positive Organisms Laboratory Results 11/22/18 17:02: POC Glucose 231 H 11/22/18 21:03: POC Glucose 242 H 11/23/18 08:09: POC Glucose 165 H 11/23/18 12:29: POC Glucose 174 H Current Medications Acetaminophen (Tylenol) 1,000 mg PO Q6H PRN PRN PRN Reason: MILD PAIN (1-3/10) Last Admin: 11/23/18 12:33 Dose: 1,000 mg [facility] Last Admin: 11/23/18 08:27 Dose: 81 mg Dextrose (D50w Syringe) 0 gm IV X1 PRN; Protocol PRN Reason: Hypoglycemia Divalproex Sodium (Depakote) 250 mg PO BID [facility] Last Admin: 11/23/18 08:28 Dose: 250 mg Donepezil HCl (Aricept) 5 mg PO DAILY [facility] Last Admin: 11/23/18 08:28 Dose: 5 mg Duloxetine HCl (Cymbalta) 30 mg PO QHS [facility] Last Admin: 11/22/18 21:04 Dose: 30 mg Glucagon () 1 mg IM .X1 PRN PRN Reason: Hypoglycemia Heparin Sodium (Porcine) (Heparin Na) 5,000 unit SC Q12 [facility] Last Admin: 11/23/18 10:17 Dose: 5,000 unit Hydralazine HCl (Apresoline Iv) 10 mg IV Q4H PRN PRN PRN Reason: BLOOD PRESSURE Last Admin: 11/22/18 10:13 Dose: 10 mg Ceftriaxone Sodium (Rocephin) 1 gm in 50 mls @ 100 mls/hr IV Q24@2200 [facility] Last Admin: 11/22/18 21:06 Dose: 100 mls/hr Sodium Chloride () 250 mls @ 15 mls/hr IV .[id number] PRN PRN Reason: SALINE FLUSH Ibuprofen (Motrin) 600 mg PO Q8H PRN PRN PRN Reason: PAIN Last Admin: 11/23/18 10:17 Dose: 600 mg Insulin Glargine (Lantus (Bkc)) 15 units SC BID [facility] Last Admin: 11/23/18 10:17 Dose: 15 u Insulin Human Lispro (Humalog Kwikpen (Bkc)) 0 unit SQ ACHS [facility]; Protocol Last Admin: 11/23/18 12:34 Dose: 1 units Lisinopril (Zestril) 20 mg PO DAILY [facility] Last Admin: 11/23/18 10:17 Dose: 20 mg Nutritional Formula (Lactose Free) (Glucerna Shake) 120 ml PO 4X/DAY [facility] Last Admin: 11/23/18 12:33 Dose: 120 ml Pioglitazone HCl (Actos) 30 mg PO DAILY [facility] Last Admin: 11/23/18 08:27 Dose: 30 mg Sodium Chloride () 5 - 15 ml IV UD PRN PRN Reason: SALINE FLUSH Last Admin: 11/22/18 21:06 Dose: 10 ml Medical Necessity - Tobacco Use Smoking Status: Never smoker Tobacco Use: Non-smoker Assessment/Plan All Active Problems Acute encephalopathy (Acute) Diabetic keto-acidosis (Acute) Seizure disorder (Acute) Elevated troponin (Acute) Hypernatremia (Acute) Hyperglycemia (Acute) Community acquired pneumonia (Acute) Bilateral leg weakness (Acute) 1. LE weakness MRI L spine was negative Discussed with Dr. Larose, you reviewed the nerve conduction study but was limited due to patient not tolerating the procedure but did not see any overt significant findings. CK normal Exam inconsistent Concern for possible conversion disorder versus factitious 2. DVT prophylaxis: Heparin Discussed with the patient's . Greater than 40 minutes of which greater than 50% of time was discussed with the patient's about patient's condition, his inconsistent exam and the lack of any segment medical findings. Did also touch on the fact that this could be psychosomatic, including conversion disorder. Did advise correction facility at which she is in agreement. Code Visit Inpatient E&M: 60717 Subs Hosp L3
--- NOTE | 2018-11-23 14:44 | PN_ITS ---
Patient Problems: Active and Suspected Problems Bilateral leg weakness (Acute) Subjective: Still with weakness. Vitals/I&O's: Vital Signs Temp Pulse Resp BP Pulse Ox 37.1 C 110 H 18 102/61 97 11/23/18 10:15 11/23/18 10:15 11/23/18 10:15 11/23/18 10:15 11/23/18 10:15 Oxygen Delivery Method Room Air Weight: 69 kg Body Mass Index (BMI) 21.8 Intake and Output for Last 24 Hours 11/21/18 11/22/18 11/23/18 23:59 23:59 23:59 Intake Total 1118 / 1118 416 / 416 Output Total 925 / 925 1000 / 1000 350 / 350 Balance 193 / 193 -584 / -584 -350 / -350 General: Alert, No apparent distress, - - Still goes off on tangents about a lot of other topics that have been up and do with his legs. Seen with his legs flexed at the hips and knees. Seen actively moving his feet spontaneously. Was able to push himself up using his legs in the bed. Extremities: No edema, No Calf Tenderness Musculoskeletal: Cachexia, Muscle Wasting Neurological: - - No clonus. Patient slowly lowers his legs, it extends his legs. Psych/Mental Status: Normal Affect, Appropriate, - - Disheveled Microbiology Past 72 Hours 11/20/18 20:19 Urine, Random Urine Culture - Final Mixed Gram Positive Organisms Laboratory Results 11/22/18 17:02: POC Glucose 231 H 11/22/18 21:03: POC Glucose 242 H 11/23/18 08:09: POC Glucose 165 H 11/23/18 12:29: POC Glucose 174 H Current Medications Acetaminophen (Tylenol) 1,000 mg PO Q6H PRN PRN PRN Reason: MILD PAIN (1-3/10) Last Admin: 11/23/18 12:33 Dose: 1,000 mg [facility] ([facility]) [facility] Last Admin: 11/23/18 08:27 Dose: 81 mg Dextrose (D50w Syringe) 0 gm IV X1 PRN; Protocol PRN Reason: Hypoglycemia Divalproex Sodium (Depakote) 250 mg PO BID [facility] Last Admin: 11/23/18 08:28 Dose: 250 mg Donepezil HCl (Aricept) 5 mg PO DAILY [facility] Last Admin: 11/23/18 08:28 Dose: 5 mg Duloxetine HCl (Cymbalta) 30 mg PO QHS [facility] Last Admin: 11/22/18 21:04 Dose: 30 mg Glucagon () 1 mg IM .X1 PRN PRN Reason: Hypoglycemia Heparin Sodium (Porcine) (Heparin Na) 5,000 unit SC Q12 [facility] Last Admin: 11/23/18 10:17 Dose: 5,000 unit Hydralazine HCl (Apresoline Iv) 10 mg IV Q4H PRN PRN PRN Reason: BLOOD PRESSURE Last Admin: 11/22/18 10:13 Dose: 10 mg Ceftriaxone Sodium (Rocephin) 1 gm in 50 mls @ 100 mls/hr IV Q24@2200 [facility] Last Admin: 11/22/18 21:06 Dose: 100 mls/hr Sodium Chloride () 250 mls @ 15 mls/hr IV .[id number] PRN PRN Reason: SALINE FLUSH Ibuprofen (Motrin) 600 mg PO Q8H PRN PRN PRN Reason: PAIN Last Admin: 11/23/18 10:17 Dose: 600 mg Insulin Glargine (Lantus (Bkc)) 15 units SC BID [facility] Last Admin: 11/23/18 10:17 Dose: 15 u Insulin Human Lispro (Humalog Kwikpen (Bkc)) 0 unit SQ ACHS [facility]; Protocol Last Admin: 11/23/18 12:34 Dose: 1 units Lisinopril (Zestril) 20 mg PO DAILY [facility] Last Admin: 11/23/18 10:17 Dose: 20 mg Nutritional Formula (Lactose Free) (Glucerna Shake) 120 ml PO 4X/DAY [facility] Last Admin: 11/23/18 12:33 Dose: 120 ml Pioglitazone HCl (Actos) 30 mg PO DAILY [facility] Last Admin: 11/23/18 08:27 Dose: 30 mg Sodium Chloride () 5 - 15 ml IV UD PRN PRN Reason: SALINE FLUSH Last Admin: 11/22/18 21:06 Dose: 10 ml Medical Necessity - Tobacco Use Smoking Status: Never smoker Tobacco Use: Non-smoker Assessment/Plan All Active Problems Acute encephalopathy (Acute) Diabetic keto-acidosis (Acute) Seizure disorder (Acute) Elevated troponin (Acute) Hypernatremia (Acute) Hyperglycemia (Acute) Community acquired pneumonia (Acute) Bilateral leg weakness (Acute) 1. LE weakness * MRI L spine was negative * Discussed with Dr. Larose, you reviewed the nerve conduction study but was limited due to patient not tolerating the procedure but did not see any overt significant findings. * CK normal * Exam inconsistent * Concern for possible conversion disorder versus factitious 2. DVT prophylaxis: Heparin Discussed with the patient's . Greater than 40 minutes of which greater than 50% of time was discussed with the patient's about patient's condition, his inconsistent exam and the lack of any segment medical findings. Did also touch on the fact that this could be psychosomatic, including conversion disorder. Did advise snf facility at which she is in agreement. Code Visit Inpatient E&M: 55794 Subs Hosp L3
--- NOTE | 2018-11-23 16:10 | CASEMGMT ---
Social Work Note KARI completed PAS/RR in HENS. Original in SNF folder and copy on pt's chart. SW placed green sheet and transportation form on pt's chart in the event pre-cert is obtained. KARI placed a call to Ilana at [facility] and left her a message informing her this worker is leaving soon and if pre-cert is obtained to call [facility] main number. KARI provided main floor number. At 16:06 Ilana called this worker and stated pre-cert hasn't been obtained and doesn't think she will get it today. Ana Fajardo PAYROLL BENEFITS ADMINISTRATOR, LABORATORY ANIMAL FACILITY SUPERVISOR
[2018-11-23 16:38] VITALS: BP 158/97; PULSE 93; RESP 18; TEMP 37.2; O2SAT 100
[2018-11-23 16:46] LABS: Bedside Glucose 148 mg/dL (70-110)
[2018-11-23] MEDS: Ceftriaxone 1 GM/50 ML BAG IV (21:09)
[2018-11-23] MEDS: DULoxetine Hcl 30 MG Capsule PO (21:09)
[2018-11-23 22:20] VITALS: BP 156/93; PULSE 101; RESP 16; TEMP 37.3; O2SAT 96
[2018-11-23 23:00] LABS: Bedside Glucose 238 mg/dL (70-110)
[2018-11-24] VITALS (9 sets, daily range): BP systolic 117–168; BP diastolic 71–110; PULSE 97–114; RESP 16–20; TEMP 36.7–37.7; O2SAT 94–98
[2018-11-24] MEDS: Insulin Lispro 100 UNIT/ML INSULN.PEN SQ (07:06)
[2018-11-24 07:11] LABS: Bedside Glucose 176 mg/dL (70-110)
[2018-11-24] MEDS: Donepezil HCl 5 MG Tablet PO (10:38)
[2018-11-24] MEDS: Heparin Injection (Vial) 5,000 UNIT/ML VIAL 5000 UNIT SC ×2 (10:41→21:46)
[2018-11-24] MEDS: Glucerna Shake 120 ML LIQUID PO (10:44)
[2018-11-24 11:15] LABS: Bedside Glucose 209 mg/dL (70-110)
--- NOTE | 2018-11-24 11:29 | CT_ITS ---
STUDY: CT BRAIN WITHOUT CONTRAST REASON FOR EXAM: Male, 73 years old. Altered mental status RADIATION DOSAGE (If Supplied By Facility): CTDIvol = ( 60.81 ) mGy, DLP = ( 1158.30 ) mGycm TECHNIQUE: Transaxial CT imaging of the brain was performed without administration of intravenous contrast material. Individualized dose optimization techniques were used for this CT. COMPARISON: No relevant priors. FINDINGS: Normal soft tissue structures. Normal calvarium. There is mild cerebral atrophy with widening of the extra-axial spaces and ventricular dilatation. There are areas of decreased attenuation within the white matter tracts of the supratentorial brain, consistent with microvascular disease changes. Normal basal ganglia and thalami. Normal brainstem. There is mild cerebellar atrophy. There is no intracranial hemorrhage. There are no findings of an acute ischemic infarction. Normal visualized paranasal sinuses. CT/Brain/Head without Contrast IMPRESSION: Chronic involutional changes of the brain. Electronically Signed: Lang Raphael DO at 12:27 EDT Tel , Service support ,
--- NOTE | 2018-11-24 11:49 | PCM.PN.HOSP ---
Patient Problems: Active and Suspected Problems Bilateral leg weakness (Acute) Subjective: Became confused shortly after being transferred to chair. Sleepy, dozing off. Patient unable to fully comply with questioning and commands. Vitals/I&O's: Vital Signs Temp Pulse Resp BP Pulse Ox 37.3 C 101 H 16 156/93 H 96 11/23/18 22:20 11/23/18 22:20 11/23/18 22:20 11/23/18 22:20 11/23/18 22:20 Oxygen Delivery Method Room Air Weight: 69 kg Body Mass Index (BMI) 21.8 Intake and Output for Last 24 Hours 11/22/18 11/23/18 11/24/18 23:59 23:59 23:59 Intake Total 416 / 416 Output Total 1000 / 1000 350 / 350 Balance -584 / -584 -350 / -350 General: Confused, - - groggy. Able to withdraw to pain HEENT: Atraumatic, PERRLA, Normocephalic Oral: Moist Mucosa, No Gingival or Mucosal Lesions/ Ulcerations Neck: No Nodes, Thyroid Normal Size and Texture Lungs: Clear to auscultation, Normal air movement, No rhonchi, No wheeze Cardiovascular: Regular rate, Regular Rhythm, Normal S1, Normal S2, No murmurs, No Ectopic Activity Abdomen: Bowel Sounds Present, Soft, Non Tender, Non-Distended, No Hepato-splenomegaly Extremities: No edema, No Calf Tenderness Skin: No rashes, No breakdown Musculoskeletal: No Tenderness to Palpation of Joints or Extremities, Cachexia, Muscle Wasting Neurological: - - no clonus. withdrawls to noxious stimuli. Psych/Mental Status: - - somnolent. Microbiology Past 72 Hours 11/20/18 20:19 Urine, Random Urine Culture - Final Mixed Gram Positive Organisms Laboratory Results 11/23/18 12:29: POC Glucose 174 H 11/23/18 16:41: POC Glucose 148 H 11/23/18 21:16: POC Glucose 238 H 11/24/18 07:03: POC Glucose 176 H 11/24/18 10:54: POC Glucose 209 H Current Medications Acetaminophen (Tylenol) 1,000 mg PO Q8 [facility] Aspirin (Ecotrin) 81 mg PO DAILYCM [facility] Last Admin: 11/24/18 10:38 Dose: 81 mg Dextrose (D50w Syringe) 0 gm IV X1 PRN; Protocol PRN Reason: Hypoglycemia Divalproex Sodium (Depakote) 250 mg PO BID [facility] Last Admin: 11/24/18 10:38 Dose: 250 mg Duloxetine HCl (Cymbalta) 30 mg PO QHS [facility] Last Admin: 11/23/18 21:09 Dose: 30 mg Glucagon () 1 mg IM .X1 PRN PRN Reason: Hypoglycemia Heparin Sodium (Porcine) (Heparin Na) 5,000 unit SC Q12 [facility] Last Admin: 11/24/18 10:41 Dose: 5,000 unit Sodium Chloride () 1,000 mls @ 150 mls/hr IV .[id number] [facility] Stop: 11/24/18 18:29 Ibuprofen (Motrin) 600 mg PO Q8H PRN PRN PRN Reason: PAIN Last Admin: 11/23/18 10:17 Dose: 600 mg Insulin Glargine (Lantus (Bk)) 15 units SC BID [facility] Last Admin: 11/24/18 10:39 Dose: 15 u Insulin Human Lispro (Humalog Kwikpen ([facility])) 0 unit SQ ACHS [facility]; Protocol Last Admin: 11/24/18 07:06 Dose: 1 units Nutritional Formula (Lactose Free) (Glucerna Shake) 120 ml PO 4X/DAY [facility] Last Admin: 11/24/18 10:44 Dose: 120 ml Pioglitazone HCl (Actos) 30 mg PO DAILY [facility] Last Admin: 11/24/18 10:38 Dose: 30 mg Sodium Chloride () 5 - 15 ml IV UD PRN PRN Reason: SALINE FLUSH Last Admin: 11/22/18 21:06 Dose: 10 ml Medical Necessity - Tobacco Use Smoking Status: Never smoker Tobacco Use: Non-smoker Assessment/Plan All Active Problems Acute encephalopathy (Acute) Diabetic keto-acidosis (Acute) Seizure disorder (Acute) Elevated troponin (Acute) Hypernatremia (Acute) Hyperglycemia (Acute) Community acquired pneumonia (Acute) Bilateral leg weakness (Acute) 1. Suspect metabolic encephalopathy occurred after sitting up. BP from sitting to laying went from 117 to 143 systolic. suspect related to orthostatic hypotension prelim CT read unremarkable (official read pending) DC aricept 2. Orthostatic hypotension IVF recheck orthostats in AM DC lisinopril 3. LE weakness MRI L spine was negative Discussed with Dr. Larose, you reviewed the nerve conduction study but was limited due to patient not tolerating the procedure but did not see any overt significant findings. CK normal Exam inconsistent Concern for possible conversion disorder versus factitious versus unwillingness due to pain/dementia versus movement disorder 4. Dementia per family, patient has been well-kempt, even in halfway. now disheveled, unclear significance requires further dementia evaluation and can continue with Dr. Kiran. Additionally, recommend neuro follow up to rule out other dementia variants (Lewy Body, PD) TSH 3.1 on 10/05/18 Check B12 and Folate DC aricept 5. DVT prophylaxis: Heparin Discussed with the patient's and daughter. Greater than 45 minutes of which greater than 50% of the time was discussing the change in mental status and work-up, orthostatic hypotension, rehab with his family at bedside. Code Visit Inpatient E&M: 29577 Subs Hosp L3
--- NOTE | 2018-11-24 11:59 | PN_ITS ---
Patient Problems: Active and Suspected Problems Bilateral leg weakness (Acute) Subjective: Became confused shortly after being transferred to chair. Sleepy, dozing off. Patient unable to fully comply with questioning and commands. Vitals/I&O's: Vital Signs Temp Pulse Resp BP Pulse Ox 37.3 C 101 H 16 156/93 H 96 11/23/18 22:20 11/23/18 22:20 11/23/18 22:20 11/23/18 22:20 11/23/18 22:20 Oxygen Delivery Method Room Air Weight: 69 kg Body Mass Index (BMI) 21.8 Intake and Output for Last 24 Hours 11/22/18 11/23/18 11/24/18 23:59 23:59 23:59 Intake Total 416 / 416 Output Total 1000 / 1000 350 / 350 Balance -584 / -584 -350 / -350 General: Confused, - - groggy. Able to withdraw to pain HEENT: Atraumatic, PERRLA, Normocephalic Oral: Moist Mucosa, No Gingival or Mucosal Lesions/ Ulcerations Neck: No Nodes, Thyroid Normal Size and Texture Lungs: Clear to auscultation, Normal air movement, No rhonchi, No wheeze Cardiovascular: Regular rate, Regular Rhythm, Normal S1, Normal S2, No murmurs, No Ectopic Activity Abdomen: Bowel Sounds Present, Soft, Non Tender, Non-Distended, No Hepato- splenomegaly Extremities: No edema, No Calf Tenderness Skin: No rashes, No breakdown Musculoskeletal: No Tenderness to Palpation of Joints or Extremities, Cachexia, Muscle Wasting Neurological: - - no clonus. withdrawls to noxious stimuli. Psych/Mental Status: - - somnolent. Microbiology Past 72 Hours 11/20/18 20:19 Urine, Random Urine Culture - Final Mixed Gram Positive Organisms Laboratory Results 11/23/18 12:29: POC Glucose 174 H 11/23/18 16:41: POC Glucose 148 H 11/23/18 21:16: POC Glucose 238 H 11/24/18 07:03: POC Glucose 176 H 11/24/18 10:54: POC Glucose 209 H Current Medications Acetaminophen (Tylenol) 1,000 mg PO Q8 [facility] Aspirin (Ecotrin) 81 mg PO DAILYCM [facility] Last Admin: 11/24/18 10:38 Dose: 81 mg Dextrose (D50w Syringe) 0 gm IV X1 PRN; Protocol PRN Reason: Hypoglycemia Divalproex Sodium (Depakote) 250 mg PO BID [facility] Last Admin: 11/24/18 10:38 Dose: 250 mg Duloxetine HCl (Cymbalta) 30 mg PO QHS [facility] Last Admin: 11/23/18 21:09 Dose: 30 mg Glucagon () 1 mg IM .X1 PRN PRN Reason: Hypoglycemia Heparin Sodium (Porcine) (Heparin Na) 5,000 unit SC Q12 [facility] Last Admin: 11/24/18 10:41 Dose: 5,000 unit Sodium Chloride () 1,000 mls @ 150 mls/hr IV .Q6H40M [facility] Stop: 11/24/18 18:29 Ibuprofen (Motrin) 600 mg PO Q8H PRN PRN PRN Reason: PAIN Last Admin: 11/23/18 10:17 Dose: 600 mg Insulin Glargine (Lantus (Bkc)) 15 units SC BID [facility] Last Admin: 11/24/18 10:39 Dose: 15 u Insulin Human Lispro (Humalog Kwikpen ([facility])) 0 unit SQ ACHS [facility]; Protocol Last Admin: 11/24/18 07:06 Dose: 1 units Nutritional Formula (Lactose Free) (Glucerna Shake) 120 ml PO 4X/DAY [facility] Last Admin: 11/24/18 10:44 Dose: 120 ml Pioglitazone HCl (Actos) 30 mg PO DAILY [facility] Last Admin: 11/24/18 10:38 Dose: 30 mg Sodium Chloride () 5 - 15 ml IV UD PRN PRN Reason: SALINE FLUSH Last Admin: 11/22/18 21:06 Dose: 10 ml Medical Necessity - Tobacco Use Smoking Status: Never smoker Tobacco Use: Non-smoker Assessment/Plan All Active Problems Acute encephalopathy (Acute) Diabetic keto-acidosis (Acute) Seizure disorder (Acute) Elevated troponin (Acute) Hypernatremia (Acute) Hyperglycemia (Acute) Community acquired pneumonia (Acute) Bilateral leg weakness (Acute) 1. Suspect metabolic encephalopathy * occurred after sitting up. BP from sitting to laying went from 117 to 143 systolic. * suspect related to orthostatic hypotension * prelim CT read unremarkable (official read pending) * DC aricept 2. Orthostatic hypotension * IVF * recheck orthostats in AM * DC lisinopril 3. LE weakness * MRI L spine was negative * Discussed with Dr. Larose, you reviewed the nerve conduction study but was limited due to patient not tolerating the procedure but did not see any overt significant findings. * CK normal * Exam inconsistent * Concern for possible conversion disorder versus factitious versus unwillingness due to pain/dementia versus movement disorder 4. Dementia * per family, patient has been well-kempt, even in detention. * now disheveled, unclear significance * requires further dementia evaluation and can continue with Dr. Kiran. Additionally, recommend neuro follow up to rule out other dementia variants (Lewy Body, PD) * TSH 3.1 on 10/05/18 * Check B12 and Folate * DC aricept 5. DVT prophylaxis: Heparin Discussed with the patient's and daughter. Greater than 45 minutes of which greater than 50% of the time was discussing the change in mental status and work-up, orthostatic hypotension, rehab with his family at bedside. Code Visit Inpatient E&M: 41105 Subs Hosp L3
--- NOTE | 2018-11-24 12:03 | NURSING ---
Addendum entered by Gretta Pisano 11/24/18 12:22: TOTAL TIME W/PT 90 MIN Original Note: PT WANTED TO TAKE AM MEDS WITH BREAKFAST. FAMILY CALLED WHEN JAYLAN ARRIVED FOR MEDS. WHEN THIS NURSE CAME, PT SLEEPING IN RECLINER. WOKE FOR MEDS, PT EASILY WOKE BUT APPEARED CONFUSED. UNABLE TO GIVE NAME OR BIRTHDATE. ONLY COMMAND HE WOULD FOLLOW WAS TO SQUEEZE NURSES HAND. IRRITATED AND NOT FOLLOWING ANY OTHER COMMANDS. DR VAZQUEZ AND JUVENCIO Mayes, RN/CHARGE BOTH IN ROOM. BLOOD SUGAR 208, VS, 117/71 98%, 114, 16 WHILE IN CHAIR. [id number] GETTING PT BACK TO BED, VS ONCE IN BED 141/82, 112, 16. CT NOTIFIED OF ORDER FOR CT HEAD, AND PT TRANSPORTED VIA BED. THIS NURSE STAYED DURING TEST AND CALLED REPORT TO SAM DOMINGUEZ, PCU. PT THEN TRANSFERRED TO [facility], SAM DOMINGUEZ, AIDE AND JESSICA Sauceda RN/CHARGE IN ROOM. AND DAUGHTER ON UNIT
[2018-11-24] MEDS: 0.9% Normal Saline 1,000 ML 150 ML IV (13:11)
[2018-11-24] MEDS: 0.9% NaCl Peripheral Flush Adult/Peds IV (13:12)
[2018-11-24 13:25] LABS: Bedside Glucose 183 mg/dL (70-110)
[2018-11-24] MEDS: Pioglitazone Hydrochloride 30 MG Tablet PO (13:27)
[2018-11-24] MEDS: Aspirin E.C. 81 MG Tablet PO (13:27)
[2018-11-24] MEDS: Divalproex Sodium 250 MG Tablet PO ×2 (13:29→21:46)
[2018-11-24 13:45] LABS: Anion Gap 6 (5-15); BUN 22 mg/dL (7-18); BUN/Creat Ratio 23.6 RATIO (10-20); Calcium,Total 9.1 mg/dL (8.5-10.1); Chloride 104 mmol/L (98-107); Creatinine, Serum 0.93 mg/dL (0.70-1.30); EST Glomerular Filtration Rate 85 mL/min (>60); Est Glom Filt Rate - Afr Amer 102 mL/min (>60); Estimated Creatinine Clearance 70.07 ml/min; Glucose 205 mg/dL (74-106); Potassium 3.7 mmol/L (3.5-5.1); Sodium Level 138 mmol/L (136-145)
--- NOTE | 2018-11-24 16:52 | MRI_ITS ---
STUDY: MRI BRAIN WITHOUT CONTRAST REASON FOR EXAM: Male, 73 years old. CSConfusionS, unable to follow comands TECHNIQUE: Standardized multiplanar fat and water weighted pulse sequences were obtained. COMPARISON: Nov 24 2018 FINDINGS: There is mild cerebral atrophy with widening of the extra-axial spaces and ventricular dilatation. There are a limited number of small white matter hyperintensities, distributed throughout the deep white matter tracts of the cerebral hemispheres, consistent with mild chronic white matter ischemic changes. Normal bilateral basal ganglia. Normal thalami. There is no extra-axial fluid accumulation. Normal flow voids within the major intracranial circulation suggesting patency by spin echo criteria. Normal sella turcica, pituitary gland, infundibular stalk, optic chiasm and hypothalamus. Normal tectal plate and pineal gland. Normal midbrain, kin and medulla. Normal cerebellum. MRI/Brain without Contrast IMPRESSION: No acute intracranial abnormality. Mild chronic microvascular ischemic changes. Electronically Signed: Herrera Harper MD at 12:17 EDT Tel , Service support ,
[2018-11-24 17:16] LABS: Bedside Glucose 118 mg/dL (70-110)
--- NOTE | 2018-11-24 22:23 | NURSING ---
Pt. resistant to care. Able to voice his needs in a delayed manner. He does not want to be bothered with anything, especially taking pills. Chews his pills and will not take any pills crushed in applesauce with this nurse trying several times and with encouragement of family members.
[2018-11-25] VITALS (9 sets, daily range): BP systolic 141–168; BP diastolic 76–96; PULSE 90–111; RESP 16–18; TEMP 36.7–37.6; O2SAT 94–98
[2018-11-25 00:16] LABS: Bedside Glucose 125 mg/dL (70-110)
--- NOTE | 2018-11-25 10:42 | PN_ITS ---
Patient Problems: Active and Suspected Problems Bilateral leg weakness (Acute) Subjective: Patient is sleepy and drowsy. Does not respond to verbal command but occasionally to pain stimulus. Temperature 99.8 T-max. Heart rate in 100s. Patient has bilateral lower extremity weakness. Vitals/I&O's: Vital Signs Temp Pulse Resp BP Pulse Ox 99.4 F H 111 H 18 168/96 H 97 11/25/18 09:21 11/25/18 09:21 11/25/18 09:21 11/25/18 09:21 11/25/18 09:21 Oxygen Delivery Method Room Air Weight: 152 lb 1.903 oz Body Mass Index (BMI) 21.8 Intake and Output for Last 24 Hours 11/23/18 11/24/18 11/25/18 23:59 23:59 23:59 Intake Total 1041 / 1041 0 / 0 Output Total 350 / 350 250 / 250 Balance -350 / -350 791 / 791 0 / 0 General: Lethargic, - - Sleepy. HEENT: Atraumatic, PERRLA, EOMI, Normocephalic Neck: Supple, No JVD, Negative Carotid Bruits Lungs: No rhonchi, No wheeze, No rales, Diminished Cardiovascular: Regular rate, Normal S1, Normal S2, No murmurs Abdomen: Bowel Sounds Present, Soft, Non Tender, Non-Distended Extremities: No edema, Capillary Refill Less than 3 Seconds Skin: No rashes, No breakdown Musculoskeletal: Arthritic Changes, Muscle Wasting Lymphatic: No Cervical, Supraclavicular, or Inguinal Adenopathy Neurological: Cranial nerves II-XII grossly intact, - - Bilateral lower extremity weakness Microbiology Past 72 Hours 11/20/18 20:19 Urine, Random Urine Culture - Final Mixed Gram Positive Organisms Laboratory Results 11/24/18 10:54: POC Glucose 209 H 11/24/18 12:24: Sodium 138, Potassium 3.7, Chloride 104, Carbon Dioxide 28.0, Anion Gap 6, BUN 22 H, Creatinine 0.93, Estim Creat Clear Calc 70.07, Est GFR (MDRD) Af Amer 102, Est GFR (MDRD) Non-Af 85, BUN/Creatinine Ratio 23.6 H, Glucose 205 H, Calcium 9.1, Folate 26.80 11/24/18 12:24: Vitamin B12 Pending 11/24/18 13:03: POC Glucose 183 H 11/24/18 16:15: POC Glucose 118 H 11/24/18 22:06: POC Glucose 125 H Current Medications Acetaminophen (Tylenol) 1,000 mg PO Q8 [facility] Last Admin: 11/25/18 06:39 Dose: Not Given Aspirin (Ecotrin) 81 mg PO DAILYCM [facility] Last Admin: 11/24/18 13:27 Dose: 81 mg Dextrose (D50w Syringe) 0 gm IV X1 PRN; Protocol PRN Reason: Hypoglycemia Divalproex Sodium (Depakote) 250 mg PO BID [facility] Last Admin: 11/24/18 21:46 Dose: 250 mg Duloxetine HCl (Cymbalta) 30 mg PO QHS [facility] Last Admin: 11/24/18 22:21 Dose: Not Given Glucagon () 1 mg IM .X1 PRN PRN Reason: Hypoglycemia Heparin Sodium (Porcine) (Heparin Na) 5,000 unit SC Q12 [facility] Last Admin: 11/24/18 21:46 Dose: 5,000 unit Ibuprofen (Motrin) 600 mg PO Q8H PRN PRN PRN Reason: PAIN Last Admin: 11/23/18 10:17 Dose: 600 mg Insulin Glargine (Lantus (Bkc)) 15 units SC BID [facility] Last Admin: 11/24/18 22:08 Dose: 15 units Insulin Human Lispro (Humalog Kwikpen (Bkc)) 0 unit SQ ACHS [facility]; Protocol Last Admin: 11/24/18 22:07 Dose: Not Given Nutritional Formula (Lactose Free) (Glucerna Shake) 120 ml PO 4X/DAY [facility] Last Admin: 11/24/18 22:21 Dose: Not Given Pioglitazone HCl (Actos) 30 mg PO DAILY [facility] Last Admin: 11/24/18 13:27 Dose: 30 mg Sodium Chloride () 5 - 15 ml IV UD PRN PRN Reason: SALINE FLUSH Last Admin: 11/24/18 13:12 Dose: 10 ml Medical Necessity - Tobacco Use Smoking Status: Never smoker Tobacco Use: Non-smoker Assessment/Plan All Active Problems Acute encephalopathy (Acute) Diabetic keto-acidosis (Acute) Seizure disorder (Acute) Elevated troponin (Acute) Hypernatremia (Acute) Hyperglycemia (Acute) Community acquired pneumonia (Acute) Bilateral leg weakness (Acute) The patient is a 73 year old M with a significant history of diabetes mellitus; hypertension; who presented to the emergency department with 2 weeks of progressively worsening bilateral lower extremity weakness and numbness. 1. Suspect metabolic encephalopathy * occurred after sitting up. BP from sitting to laying went from 117 to 143 systolic. * Patient blood pressure fluctuates. * Patient had EEG in September 2018 which was reported as abnormal due to mild generalized slowing. No epileptiform discharges were noticed. 2. Orthostatic hypotension * Blood pressure is 166/89. * Patient is on IV fluid for nutrition, D5 half NS 3. LE weakness * MRI L spine was negative * Discussed with Dr. Larose, you reviewed the nerve conduction study but was limited due to patient not tolerating the procedure but did not see any overt significant findings. * CK normal * MRI brain does not show acute intracranial abnormality. * Concern for possible conversion disorder versus factitious versus unwillingness due to pain/dementia versus movement disorder 4. Dementia * per family, patient has been well-kempt, even in shelter. * now disheveled, unclear significance * requires further dementia evaluation and can continue with Dr. Kiran. Additionally, recommend neuro follow up to rule out other dementia variants (Lewy Body, PD) * TSH 3.1 on 10/05/18 * Folate 26. B12 pending. * DC aricept 5. DVT prophylaxis: Heparin Discussed with the patient's and daughter. Microbiology Past 72 Hours 11/20/18 20:19 Urine, Random Urine Culture - Final Mixed Gram Positive Organisms Laboratory Results 11/24/18 10:54: POC Glucose 209 H 11/24/18 12:24: Sodium 138, Potassium 3.7, Chloride 104, Carbon Dioxide 28.0, Anion Gap 6, BUN 22 H, Creatinine 0.93, Estim Creat Clear Calc 70.07, Est GFR (MDRD) Af Amer 102, Est GFR (MDRD) Non-Af 85, BUN/Creatinine Ratio 23.6 H, Glucose 205 H, Calcium 9.1, Folate 26.80 11/24/18 12:24: Vitamin B12 Pending 11/24/18 13:03: POC Glucose 183 H 11/24/18 16:15: POC Glucose 118 H 11/24/18 22:06: POC Glucose 125 H Clinical Impression(s) from Imaging Studies Brain CT 11/24/18 11:29 IMPRESSION: Chronic involutional changes of the brain. Code Visit Inpatient E&M: 21981 Subs Hosp L2
[2018-11-25 11:11] LABS: Bedside Glucose 161 mg/dL (70-110)
[2018-11-25] MEDS: Heparin Injection (Vial) 5,000 UNIT/ML VIAL 5000 UNIT SC ×2 (11:17→22:22)
[2018-11-25 11:35] LABS: Bedside Glucose 183 mg/dL (70-110)
[2018-11-25] MEDS: Dext 5%-0.45% NS 1,000 ML 30 ML IV (12:15)
[2018-11-25] MEDS: 0.9% NaCl Peripheral Flush Adult/Peds IV (12:17)
[2018-11-25 17:10] LABS: Bedside Glucose 161 mg/dL (70-110)
[2018-11-25] MEDS: Insulin Lispro 100 UNIT/ML INSULN.PEN SQ (22:28)
[2018-11-25 22:36] LABS: Bedside Glucose 178 mg/dL (70-110)
[2018-11-26] VITALS (9 sets, daily range): BP systolic 139–160; BP diastolic 82–100; PULSE 86–104; RESP 16–18; TEMP 36.3–37.4; O2SAT 94–100
[2018-11-26 07:45] LABS: Bedside Glucose 165 mg/dL (70-110)
[2018-11-26 09:55] LABS: Vitamin B12 1402 pg/mL (211-911)
[2018-11-26] MEDS: Pioglitazone Hydrochloride 30 MG Tablet PO (10:29)
[2018-11-26] MEDS: Divalproex Sodium 250 MG Tablet PO ×2 (10:29→21:51)
[2018-11-26] MEDS: Aspirin E.C. 81 MG Tablet PO (10:30)
[2018-11-26] MEDS: Ibuprofen 600 MG Tablet PO (10:30)
[2018-11-26] MEDS: Heparin Injection (Vial) 5,000 UNIT/ML VIAL 5000 UNIT SC ×2 (10:31→21:51)
[2018-11-26] MEDS: Insulin Lispro 100 UNIT/ML INSULN.PEN SQ ×3 (11:30→22:03)
[2018-11-26 11:51] LABS: Bedside Glucose 253 mg/dL (70-110)
--- NOTE | 2018-11-26 12:33 | PCM.PN.HOSP ---
Patient Problems: Active and Suspected Problems Bilateral leg weakness (Acute) Vitals/I&O's: Vital Signs Temp Pulse Resp BP Pulse Ox 97.9 F 104 H 18 154/100 H 100 11/26/18 09:25 11/26/18 12:15 11/26/18 09:25 11/26/18 09:25 11/26/18 09:25 Oxygen Delivery Method Room Air Weight: 152 lb 1.903 oz Body Mass Index (BMI) 21.8 Intake and Output for Last 24 Hours 11/24/18 11/25/18 11/26/18 23:59 23:59 23:59 Intake Total 1041 / 1041 358 / 358 0 / 0 Output Total 250 / 250 150 / 150 Balance 791 / 791 208 / 208 0 / 0 General: Lethargic, - - level of conscuoisness fluctuates. HEENT: Atraumatic, PERRLA, EOMI, Normocephalic Neck: Supple, No JVD, Negative Carotid Bruits Lungs: Clear to auscultation, Normal air movement, Diminished - Air entry Diminished bilaterally Cardiovascular: Regular rate, Regular Rhythm, Normal S1, Normal S2, No murmurs Abdomen: Bowel Sounds Present, Soft, Non Tender, Non-Distended Extremities: No edema, Capillary Refill Less than 3 Seconds, Edema Skin: No rashes, No breakdown Musculoskeletal: No Tenderness to Palpation of Joints or Extremities, Arthritic Changes Neurological: Cranial nerves II-XII grossly intact, Deep Tendon Reflexes 2+/4 and Symmetrical, Neuro grossly intact, - - Peripheral neuropathy of both legs and feet Psych/Mental Status: Normal Affect, Appropriate Laboratory Results 11/24/18 12:24: Vitamin B12 1402 H 11/25/18 17:01: POC Glucose 161 H 11/25/18 22:27: POC Glucose 178 H 11/26/18 07:41: POC Glucose 165 H 11/26/18 11:28: POC Glucose 253 H Current Medications Acetaminophen (Tylenol) 1,000 mg PO Q8 [facility] Last Admin: 11/26/18 03:01 Dose: Not Given Aspirin (Ecotrin) 81 mg PO DAILYCM [facility] Last Admin: 11/26/18 10:30 Dose: 81 mg Dextrose (D50w Syringe) 0 gm IV X1 PRN; Protocol PRN Reason: Hypoglycemia Divalproex Sodium (Depakote) 250 mg PO BID [facility] Last Admin: 11/26/18 10:29 Dose: 250 mg Duloxetine HCl (Cymbalta) 30 mg PO QHS [facility] Last Admin: 11/25/18 21:52 Dose: Not Given Glucagon () 1 mg IM .X1 PRN PRN Reason: Hypoglycemia Heparin Sodium (Porcine) (Heparin Na) 5,000 unit SC Q12 [facility] Last Admin: 11/26/18 10:31 Dose: 5,000 unit Hydralazine HCl (Apresoline Iv) 10 mg IV Q6H PRN PRN PRN Reason: SBP>180 mmhg Dextrose/Sodium Chloride () 1,000 mls @ 30 mls/hr IV .[id number] [facility] Last Admin: 11/25/18 12:15 Dose: 30 mls/hr Ibuprofen (Motrin) 600 mg PO Q8H PRN PRN PRN Reason: PAIN Last Admin: 11/26/18 10:30 Dose: 600 mg Insulin Glargine (Lantus (Bkc)) 15 units SC BID [facility] Last Admin: 11/26/18 10:30 Dose: 15 units Insulin Human Lispro (Humalog Kwikpen (Bk)) 0 unit SQ ACHS [facility]; Protocol Last Admin: 11/26/18 11:30 Dose: 2 units Nutritional Formula (Lactose Free) (Glucerna Shake) 120 ml PO 4X/DAY [facility] Last Admin: 11/26/18 09:41 Dose: Not Given Pioglitazone HCl (Actos) 30 mg PO DAILY [facility] Last Admin: 11/26/18 10:29 Dose: 30 mg Sodium Chloride () 5 - 15 ml IV UD PRN PRN Reason: SALINE FLUSH Last Admin: 11/25/18 12:17 Dose: 10 ml Medical Necessity - Tobacco Use Smoking Status: Never smoker Tobacco Use: Non-smoker Assessment/Plan All Active Problems Acute encephalopathy (Acute) Diabetic keto-acidosis (Acute) Seizure disorder (Acute) Elevated troponin (Acute) Hypernatremia (Acute) Hyperglycemia (Acute) Community acquired pneumonia (Acute) Bilateral leg weakness (Acute) The patient is a 73 year old M with a significant history of diabetes mellitus; hypertension; who presented to the emergency department with 2 weeks of progressively worsening bilateral lower extremity weakness and numbness. 1. Suspect metabolic encephalopathy occurred after sitting up. BP from sitting to laying went from 117 to 143 systolic. Patient blood pressure fluctuates. Patient had EEG in September 2018 which was reported as abnormal due to mild generalized slowing. No epileptiform discharges were noticed. MRI C-spine ordered. UTI ruled out. 2. Orthostatic hypotension Blood pressure is 166/89. Discontinue IV fluid. 3. LE weakness MRI L spine was negative Discussed with Dr. Larose, you reviewed the nerve conduction study but was limited due to patient not tolerating the procedure but did not see any overt significant findings. CK normal MRI brain does not show acute intracranial abnormality. Concern for possible conversion disorder versus factitious versus unwillingness due to pain/dementia versus movement disorder 4. Dementia per family, patient has been well-kempt, even in longterm. now disheveled, unclear significance requires further dementia evaluation and can continue with Dr. Kiran. Additionally, recommend neuro follow up to rule out other dementia variants (Lewy Body, PD). Discussed with Dr. Mckeon. TSH 3.1 on 10/05/18 Folate 26. B12 1400. CK 47. DC aricept 5. DVT prophylaxis: Heparin Discussed with the patient's and daughter. Microbiology Past 72 Hours 11/20/18 20:19 Urine, Random Urine Culture - Final Mixed Gram Positive Organisms Laboratory Results 11/24/18 10:54: POC Glucose 209 H 11/24/18 12:24: Sodium 138, Potassium 3.7, Chloride 104, Carbon Dioxide 28.0, Anion Gap 6, BUN 22 H, Creatinine 0.93, Estim Creat Clear Calc 70.07, Est GFR (MDRD) Af Amer 102, Est GFR (MDRD) Non-Af 85, BUN/Creatinine Ratio 23.6 H, Glucose 205 H, Calcium 9.1, Folate 26.80 11/24/18 12:24: Vitamin B12 Pending 11/24/18 13:03: POC Glucose 183 H 11/24/18 16:15: POC Glucose 118 H 11/24/18 22:06: POC Glucose 125 H Clinical Impression(s) from Imaging Studies Brain CT 11/24/18 11:29 IMPRESSION: Chronic involutional changes of the brain. Code Visit Inpatient E&M: 82718 Subs Hosp L2
[2018-11-26] MEDS: Acetaminophen 500 MG Tablet 1000 MG PO ×2 (13:39→21:51)
--- NOTE | 2018-11-26 15:46 | CASEMGMT ---
KARI faxed updates to [facility] this am. KARI called [facility] and left a message for admissions to call KARI back. Tashia MARIN MSW
--- NOTE | 2018-11-26 16:08 | MRI_ITS ---
STUDY: MRI CERVICAL SPINE WITHOUT CONTRAST REASON FOR EXAM: Male, 73 years old. Inability to move legs TECHNIQUE: Standardized fat and water weighted pulse sequences were obtained in the sagittal and axial planes. COMPARISON: None FINDINGS: Normal foramen magnum and brainstem-cervical cord junction. Normal craniovertebral junction. Normal anterior atlantoaxial articulation. Normal odontoid process. Decreased cervical lordosis. Normal vertebral bodies and posterior osseous elements. C2-3: Normal endplates. Normal disc height, signal and morphology. Normal central canal and intervertebral neural foramina. C3-4: Normal endplates. Normal disc height, signal and morphology. Normal central canal and intervertebral neural foramina. C4-5: Normal endplates. Normal disc height, signal and morphology. Normal central canal and intervertebral neural foramina. C5-6: Mild narrowing of disc space and endplate spurring. Minimal osteophytic ridging. Normal central canal.. Mild to moderate bilateral neural foraminal encroachment secondary to bony hypertrophy C6-7: : Endplate spurring.. Normal disc height, signal and minor bulging of the disc with right posterolateral/foraminal disc/osteophyte protrusion.. Normal central canal. Severe right neuroforaminal stenosis secondary to disc and bony hypertrophy. C7-T1: Normal endplates. Normal disc height, signal and morphology. Normal central canal and intervertebral neural foramina. Normal cervical cord. Normal visualized soft tissue structures. MRI/Spine Cervical (Routine) IMPRESSION: No evidence for acute fractures fixation. Mild spondylosis Mild to moderate bilateral neuroforaminal stenosis at C5-6 and severe on the right at C6-7 on the right primarily due to bony hypertrophy Electronically Signed: Iván Freitas MD at 21:24 EDT , Service support ,
[2018-11-26] MEDS: Lisinopril 20 MG Tablet PO (17:10)
[2018-11-26 17:11] LABS: Bedside Glucose 255 mg/dL (70-110)
[2018-11-26] MEDS: Glucerna Shake 120 ML LIQUID PO (21:56)
[2018-11-26 23:46] LABS: Bedside Glucose 228 mg/dL (70-110)
[2018-11-27] VITALS (9 sets, daily range): BP systolic 141–151; BP diastolic 67–76; PULSE 83–129; RESP 16–18; TEMP 36.8–36.9; O2SAT 96–100
[2018-11-27 05:57] LABS: Absolute Lymphocyte Count 2.37 X10^3/ul (0.83-4.51); Absolute Neutrophil Count 1.7 X10^3/uL (2.0-7.7); Basophil# 0.01 X10^3/uL; Basophil% 0.2 % (0-1); Eosinophil# 0.04 X10^3/uL; Eosinophils% 0.9 % (0-5); Hemoglobin 12.7 g/dl (13.0-16.5); Lymphocyte # 2.37 X10^3/ul (4.0); Lymphocyte % 51.5 % (19-41); Mean Corp Hgb Conc 34.3 g/gl (32-36); Mean Corpuscular Hgb 29.8 pg (27.0-32.0); Mean Corpuscular Volume 86.9 fL (80-94); Mean Platelet Vol. 9.7 fl (6.2-12.0); Monocyte# 0.51 X10^3/uL; Monocyte% 11.1 % (0-10); Neutrophil # 1.67 X10^3/uL (2.7-7.7); Neutrophil % 36.3 % (47-70); POSITIVE COUNT NO; POSITIVE DIFFERENTIAL NO; POSITIVE MORPHOLOGY NO; Platelet Count 198 K/mm3 (150-450); RBC Distribution Width CV 13.9 % (11.6-14.6); RBC Distribution Width SD 44.2 fl (35.1-43.9); Red Blood Count 4.26 M/mm3 (4.6-6.2); White Blood Count 4.6 K/mm3 (4.4-11.0)
[2018-11-27 06:06] LABS: Anion Gap 7 (5-15); BUN 23 mg/dL (7-18); BUN/Creat Ratio 30.3 RATIO (10-20); CRP < 2.90 mg/L (0.0-3.0); Calcium,Total 9.1 mg/dL (8.5-10.1); Chloride 105 mmol/L (98-107); Creatinine, Serum 0.76 mg/dL (0.70-1.30); EST Glomerular Filtration Rate 107 mL/min (>60); Est Glom Filt Rate - Afr Amer 130 mL/min (>60); Estimated Creatinine Clearance 65.17 ml/min; Glucose 109 mg/dL (74-106); Potassium 3.8 mmol/L (3.5-5.1); Sodium Level 139 mmol/L (136-145)
[2018-11-27] MEDS: Acetaminophen 500 MG Tablet 1000 MG PO ×2 (06:38→22:32)
[2018-11-27 07:01] LABS: Bedside Glucose 131 mg/dL (70-110)
[2018-11-27 08:42] LABS: Hemoglobin A1c 6.5 % (4.2-6.3)
[2018-11-27] MEDS: Lisinopril 20 MG Tablet PO (09:54)
[2018-11-27] MEDS: Aspirin E.C. 81 MG Tablet PO (09:54)
[2018-11-27] MEDS: Divalproex Sodium 250 MG Tablet PO ×2 (09:54→22:30)
[2018-11-27] MEDS: Pioglitazone Hydrochloride 30 MG Tablet PO (09:54)
[2018-11-27] MEDS: Heparin Injection (Vial) 5,000 UNIT/ML VIAL 5000 UNIT SC ×2 (09:55→22:30)
[2018-11-27] MEDS: Glucerna Shake 120 ML LIQUID PO ×2 (09:59→22:34)
[2018-11-27 10:15] LABS: Bedside Glucose 209 mg/dL (70-110)
[2018-11-27] MEDS: Insulin Lispro 100 UNIT/ML INSULN.PEN SQ ×3 (12:20→22:31)
[2018-11-27 12:26] LABS: Bedside Glucose 275 mg/dL (70-110)
[2018-11-27] MEDS: HYDROcodone Bitartrate/Apap 5/325 Tablet PO ×2 (13:07→17:04)
--- NOTE | 2018-11-27 13:51 | PCM.PN.NEU ---
Patient Problems: Active and Suspected Problems Bilateral leg weakness (Acute) Subjective: No issues overnight. Care discussed with hospitalist Dr. Nava. Patient continues to have bilateral lower extremity weakness. Per daughter at the bedside his pain has improved. 73-year-old male with PMH HTN, DM, seizures, neuropathy who was admitted to [facility] in September 2018 after being found unresponsive, was found in DKA then, later was in the TCU for rehabilitation at the [facility] where he was discharged on 10/03/2018. Since then he has been having progressive pain in both the feet especially the toes has been using walker to ambulate and had been has been having progressive weakness in both legs, with weakness worsening over the past few weeks. MRI brain done during this admission did not show anything acute, MRI L-spine done on 11/17/2018 reported to show spinal stenosis at L3-L4, L4-L5 and L5-S1 secondary to disc disease and bony hypertrophy related to the left, MRI C-spine done during this admission reported to show mild to moderate bilateral neuroforaminal stenosis at C5-C6 and severe on the right at C6-C7 on the right primarily due to bony hypertrophy, mild spondylosis and no evidence of acute fractures. UA on admission was reported to be cloudy with LE 500, WBC 25?50, nitrite positive and urine culture reported to show gram-positive organisms and per hospitalist it is probably contamination. - Physical Exam General: Alert HEENT: Normocephalic Neck: Supple Lungs: Normal air movement Cardiovascular: Normal S1, Normal S2 Abdomen: Bowel Sounds Present Extremities: No cyanosis Neurological: - - consious, alert, AoAx3, CN 2-12 grossly intact, power 5/5 both UE, 3/5 Both LE, plantars B/L flexor, Reflexes + B/L B/S/T, areflexia B/L K/A, no sensory loss, no cerebellar signs, gait deferred. Psych/Mental Status: Normal Affect Vital Signs Temp Pulse Resp BP Pulse Ox 98.3 F 92 16 149/76 H 99 11/27/18 09:00 11/27/18 09:00 11/27/18 09:00 11/27/18 09:00 11/27/18 09:00 Oxygen Delivery Method Room Air Weight: 69 kg Body Mass Index (BMI) 21.8 Intake and Output for Last 24 Hours 11/25/18 11/26/18 11/27/18 23:59 23:59 23:59 Intake Total 358 / 358 680 / 680 240 / 240 Output Total 150 / 150 300 / 300 575 / 575 Balance 208 / 208 380 / 380 -335 / -335 Laboratory Tests Past 24 Hrs 11/27/18 11/27/18 11/27/18 05:25 05:25 05:25 WBC 4.6 RBC 4.26 L Hgb 12.7 L Hct 37.0 L MCV 86.9 MCH 29.8 MCHC 34.3 RDW 13.9 RDW Differential 44.2 H Plt Count 198 MPV 9.7 Immature Gran % (Auto) 0.000 Neut % (Auto) 36.3 L Lymph % (Auto) 51.5 H [place] % (Auto) 11.1 H Eos % (Auto) 0.9 Baso % (Auto) 0.2 Absolute Neuts (auto) 1.7 L Absolute Lymphs (auto) 2.37 Total Counted Not Reportable Sodium 139 Potassium 3.8 Chloride 105 Carbon Dioxide 27.0 Anion Gap 7 BUN 23 H Creatinine 0.76 Estim Creat Clear Calc 65.17 Est GFR (MDRD) Af Amer 130 Est GFR (MDRD) Non-Af 107 BUN/Creatinine Ratio 30.3 H Glucose 109 H Hemoglobin A1c 6.5 H Calcium 9.1 C-React Prot Ext Range < 2.90 POC Glucose 11/27/18 11/27/18 11/27/18 12:17 10:06 06:46 POC Glucose 275 H 209 H 131 H 11/26/18 11/26/18 22:02 17:02 POC Glucose 228 H 255 H Medical Necessity - Tobacco Use Smoking Status: Never smoker Tobacco Use: Non-smoker Assessment/Plan All Active Problems Acute encephalopathy (Acute) Diabetic keto-acidosis (Acute) Seizure disorder (Acute) Elevated troponin (Acute) Hypernatremia (Acute) Hyperglycemia (Acute) Community acquired pneumonia (Acute) Bilateral leg weakness (Acute) 73-year-old male with PMH HTN, DM, seizures, neuropathy who was admitted to [facility] in September 2018 after being found unresponsive, was found in DKA then, later was in the TCU for rehabilitation at the [facility] where he was discharged on 10/03/2018. Since then he has been having progressive pain in both the feet especially the toes has been using walker to ambulate and had been has been having progressive weakness in both legs, with weakness worsening over the past few weeks. MRI brain done during this admission did not show anything acute, MRI L-spine done on 11/17/2018 reported to show spinal stenosis at L3-L4, L4-L5 and L5-S1 secondary to disc disease and bony hypertrophy related to the left, MRI C-spine done during this admission reported to show mild to moderate bilateral neuroforaminal stenosis at C5-C6 and severe on the right at C6-C7 on the right primarily due to bony hypertrophy, mild spondylosis and no evidence of acute fractures. UA on admission was reported to be cloudy with LE 500, WBC 25?50, nitrite positive and urine culture reported to show gram-positive organisms and per hospitalist it is probably contamination Impression B/L LE weakness Cervical/lumbar stenosis Neuropathy vs GBS vs CIDP Plan -EMG/NCS both LE -LP- to r/o albumino-cytological dissociation -Labs reviewed- Total CK 47, LFTs-AST/ALT-17/33, Set6a-5.5. -Check Vitamin B12, TSH, KLARISSA/ANCA/RF/SSa/SSb/ESR/CRP, SPEP with EDSON, UPEP with EDSON, anti GQ1 b antibody, anti GM 1 antibody and paraneoplastic antibodies -Repeat UA -On Depakote for seizures -May need IVIg based on EMG/NCS results -Spine surgery consult -GI/DVT prophylaxis -Fall precautions -Further medical management per hospitalist team -Follow up with Neurology as outpatient in 6 weeks -Please call with questions if any -Thank you for allowing us to participate in patient's care and management
--- NOTE | 2018-11-27 14:06 | PN.NEURO_ITS ---
Patient Problems: Active and Suspected Problems Bilateral leg weakness (Acute) Subjective: No issues overnight. Care discussed with hospitalist Dr. Nava. Patient continues to have bilateral lower extremity weakness. Per daughter at the bedside his pain has improved. 73-year-old male with PMH HTN, DM, seizures, neuropathy who was admitted to [facility] in September 2018 after being found unresponsive, was found in DKA then, later was in the TCU for rehabilitation at the [facility] where he was discharged on 10/03/2018. Since then he has been having progressive pain in both the feet especially the toes has been using walker to ambulate and had been has been having progressive weakness in both legs, with weakness worsening over the past few weeks. MRI brain done during this admission did not show anything acute, MRI L-spine done on 11/17/2018 reported to show spinal stenosis at L3-L4, L4-L5 and L5-S1 secondary to disc disease and bony hypertrophy related to the left, MRI C-spine done during this admission reported to show mild to moderate bilateral neuroforaminal stenosis at C5-C6 and severe on the right at C6-C7 on the right primarily due to bony hypertrophy, mild spondylosis and no evidence of acute fractures. UA on admission was reported to be cloudy with LE 500, WBC 25?50, nitrite positive and urine culture reported to show gram-positive organisms and per hospitalist it is probably contamination. - Physical Exam General: Alert HEENT: Normocephalic Neck: Supple Lungs: Normal air movement Cardiovascular: Normal S1, Normal S2 Abdomen: Bowel Sounds Present Extremities: No cyanosis Neurological: - - consious, alert, AoAx3, CN 2-12 grossly intact, power 5/5 both UE, 3/5 Both LE, plantars B/L flexor, Reflexes + B/L B/S/T, areflexia B/L K/A, no sensory loss, no cerebellar signs, gait deferred. Psych/Mental Status: Normal Affect Vital Signs Temp Pulse Resp BP Pulse Ox 98.3 F 92 16 149/76 H 99 11/27/18 09:00 11/27/18 09:00 11/27/18 09:00 11/27/18 09:00 11/27/18 09:00 Oxygen Delivery Method Room Air Weight: 69 kg Body Mass Index (BMI) 21.8 Intake and Output for Last 24 Hours 11/25/18 11/26/18 11/27/18 23:59 23:59 23:59 Intake Total 358 / 358 680 / 680 240 / 240 Output Total 150 / 150 300 / 300 575 / 575 Balance 208 / 208 380 / 380 -335 / -335 Laboratory Tests Past 24 Hrs 11/27/18 11/27/18 11/27/18 05:25 05:25 05:25 WBC 4.6 RBC 4.26 L Hgb 12.7 L Hct 37.0 L MCV 86.9 MCH 29.8 MCHC 34.3 RDW 13.9 RDW Differential 44.2 H Plt Count 198 MPV 9.7 Immature Gran % (Auto) 0.000 Neut % (Auto) 36.3 L Lymph % (Auto) 51.5 H [place] % (Auto) 11.1 H Eos % (Auto) 0.9 Baso % (Auto) 0.2 Absolute Neuts (auto) 1.7 L Absolute Lymphs (auto) 2.37 Total Counted Not Reportable Sodium 139 Potassium 3.8 Chloride 105 Carbon Dioxide 27.0 Anion Gap 7 BUN 23 H Creatinine 0.76 Estim Creat Clear Calc 65.17 Est GFR (MDRD) Af Amer 130 Est GFR (MDRD) Non-Af 107 BUN/Creatinine Ratio 30.3 H Glucose 109 H Hemoglobin A1c 6.5 H Calcium 9.1 C-React Prot Ext Range < 2.90 POC Glucose 11/27/18 11/27/18 11/27/18 12:17 10:06 06:46 POC Glucose 275 H 209 H 131 H 11/26/18 11/26/18 22:02 17:02 POC Glucose 228 H 255 H Medical Necessity - Tobacco Use Smoking Status: Never smoker Tobacco Use: Non-smoker Assessment/Plan All Active Problems Acute encephalopathy (Acute) Diabetic keto-acidosis (Acute) Seizure disorder (Acute) Elevated troponin (Acute) Hypernatremia (Acute) Hyperglycemia (Acute) Community acquired pneumonia (Acute) Bilateral leg weakness (Acute) 73-year-old male with PMH HTN, DM, seizures, neuropathy who was admitted to [facility] in September 2018 after being found unresponsive, was found in DKA then, later was in the TCU for rehabilitation at the [facility] where he was discharged on 10/03/2018. Since then he has been having progressive pain in both the feet especially the toes has been using walker to ambulate and had been has been havi ng progressive weakness in both legs, with weakness worsening over the past few weeks. MRI brain done during this admission did not show anything acute, MRI L- spine done on 11/17/2018 reported to show spinal stenosis at L3-L4, L4-L5 and L5- S1 secondary to disc disease and bony hypertrophy related to the left, MRI C- spine done during this admission reported to show mild to moderate bilateral neuroforaminal stenosis at C5-C6 and severe on the right at C6-C7 on the right primarily due to bony hypertrophy, mild spondylosis and no evidence of acute fractures. UA on admission was reported to be cloudy with LE 500, WBC 25?50, nitrite positive and urine culture reported to show gram-positive organisms and per hospitalist it is probably contamination Impression B/L LE weakness Cervical/lumbar stenosis Neuropathy vs GBS vs CIDP Plan -EMG/NCS both LE -LP- to r/o albumino-cytological dissociation -Labs reviewed- Total CK 47, LFTs-AST/ALT-17/33, Xlh1b-4.5. -Check Vitamin B12, TSH, KLARISSA/ANCA/RF/SSa/SSb/ESR/CRP, SPEP with EDSON, UPEP with EDSON, anti GQ1 b antibody, anti GM 1 antibody and paraneoplastic antibodies -Repeat UA -On Depakote for seizures -May need IVIg based on EMG/NCS results -Spine surgery consult -GI/DVT prophylaxis -Fall precautions -Further medical management per hospitalist team -Follow up with Neurology as outpatient in 6 weeks -Please call with questions if any -Thank you for allowing us to participate in patient's care and management
[2018-11-27 14:55] LABS: Platelet Count 202 K/mm3 (150-450)
[2018-11-27 14:58] LABS: International Normalized Ratio 1.1; Partial Thromboplast Time 31.9 Seconds (24.1-36.2); Prothrombin Time (Protime)PT. 13.6 SECONDS (11.7-14.9)
--- NOTE | 2018-11-27 15:06 | CASEMGMT ---
KARI called [facility] back and patient has been approved. KARI told her patient is not ready today as they ordered a few more tests. She said she thinks the pre-cert is good for 72 hours. KARI let patient's know that patient was approved. SW to follow for discharge to [facility]. Tashia MARIN MSW
--- NOTE | 2018-11-27 15:18 | PN_ITS ---
Patient Problems: Active and Suspected Problems Bilateral leg weakness (Acute) Subjective: Patient is more awake and alert answer questions appropriately but has increased reaction time. Patient tries to recall with effort. Discussed with the patient's daughter. Patient has slowly progressive weakness of lower extremity since September 2018 when he started using a walker. he was admitted to [facility] for unresponsiveness. Vitals/I&O's: Vital Signs Temp Pulse Resp BP Pulse Ox 98.3 F 92 16 149/76 H 99 11/27/18 09:00 11/27/18 09:00 11/27/18 09:00 11/27/18 09:00 11/27/18 09:00 Oxygen Delivery Method Room Air Weight: 152 lb 1.903 oz Body Mass Index (BMI) 21.8 Intake and Output for Last 24 Hours 11/25/18 11/26/18 11/27/18 23:59 23:59 23:59 Intake Total 358 / 358 680 / 680 240 / 240 Output Total 150 / 150 300 / 300 575 / 575 Balance 208 / 208 380 / 380 -335 / -335 General: Alert, Oriented x3, Cooperative, - - Fluctuating level of alertness HEENT: Atraumatic, PERRLA, EOMI, Normocephalic Oral: No Gingival or Mucosal Lesions/ Ulcerations Neck: Supple, No JVD, Negative Carotid Bruits Lungs: Clear to auscultation, No rhonchi, No wheeze, No rales, Diminished Cardiovascular: Regular rate, Regular Rhythm, Normal S1, Normal S2, No murmurs Abdomen: Bowel Sounds Present, Soft, Non Tender, Non-Distended Skin: No rashes Musculoskeletal: Arthritic Changes, Muscle Wasting Neurological: Cranial nerves II-XII grossly intact, - - DTR 1/4, weakness of both lower extremity power 3/5 Bilateral neuropathy of lower extremities Laboratory Results 11/26/18 17:02: POC Glucose 255 H 11/26/18 22:02: POC Glucose 228 H 11/27/18 05:25: WBC 4.6, RBC 4.26 L, Hgb 12.7 L, Hct 37.0 L, MCV 86.9, MCH 29.8, MCHC 34.3, RDW 13.9, RDW Differential 44.2 H, Plt Count 198, MPV 9.7, Immature Gran % (Auto) 0.000, Neut % (Auto) 36.3 L, Lymph % (Auto) 51.5 H, [place] % (Auto) 11.1 H, Eos % (Auto) 0.9, Baso % (Auto) 0.2, Absolute Neuts (auto) 1.7 L, Absolute Lymphs (auto) 2.37, Total Counted Not Reportable 11/27/18 05:25: Sodium 139, Potassium 3.8, Chloride 105, Carbon Dioxide 27.0, Anion Gap 7, BUN 23 H, Creatinine 0.76, Estim Creat Clear Calc 65.17, Est GFR (MDRD) Af Amer 130, Est GFR (MDRD) Non-Af 107, BUN/Creatinine Ratio 30.3 H, Glucose 109 H, Calcium 9.1, C-React Prot Ext Range < 2.90 11/27/18 05:25: Hemoglobin A1c 6.5 H 11/27/18 06:46: POC Glucose 131 H 11/27/18 10:06: POC Glucose 209 H 11/27/18 12:17: POC Glucose 275 H 11/27/18 14:33: Plt Count 202 11/27/18 14:33: PT 13.6, INR 1.1, APTT 31.9 11/27/18 14:33: ESR Pending Current Medications Acetaminophen (Tylenol) 1,000 mg PO Q8 [facility] Last Admin: 11/27/18 13:07 Dose: Not Given Hydrocodone Bitart/Acetaminophen (Wilder 5mg-325mg) 1 tablet PO Q4H [facility] Stop: 11/27/18 17:01 Last Admin: 11/27/18 13:07 Dose: 1 tablet Aspirin (Ecotrin) 81 mg PO DAILYCM [facility] Last Admin: 11/27/18 09:54 Dose: 81 mg Dextrose (D50w Syringe) 0 gm IV X1 PRN; Protocol PRN Reason: Hypoglycemia Divalproex Sodium (Depakote) 250 mg PO BID [facility] Last Admin: 11/27/18 09:54 Dose: 250 mg Glucagon () 1 mg IM .X1 PRN PRN Reason: Hypoglycemia Heparin Sodium (Porcine) (Heparin Na) 5,000 unit SC Q12 [facility] Last Admin: 11/27/18 09:55 Dose: 5,000 unit Hydralazine HCl (Apresoline Iv) 10 mg IV Q6H PRN PRN PRN Reason: SBP>180 mmhg Ibuprofen (Motrin) 600 mg PO Q8H PRN PRN PRN Reason: PAIN Last Admin: 11/26/18 10:30 Dose: 600 mg Insulin Glargine (Lantus (Bkc)) 15 units SC BID [facility] Last Admin: 11/27/18 09:55 Dose: 15 units Insulin Human Lispro (Humalog Kwikpen (Bkc)) 0 unit SQ ACHS DAMIEN; Protocol Last Admin: 11/27/18 12:20 Dose: 3 units Lisinopril (Zestril) 20 mg PO DAILY [facility] Last Admin: 11/27/18 09:54 Dose: 20 mg Nutritional Formula (Lactose Free) (Glucerna Shake) 120 ml PO 4X/DAY [facility] Last Admin: 11/27/18 13:06 Dose: Not Given Pioglitazone HCl (Actos) 30 mg PO DAILY [facility] Last Admin: 11/27/18 09:54 Dose: 30 mg Sodium Chloride () 5 - 15 ml IV UD PRN PRN Reason: SALINE FLUSH Last Admin: 11/25/18 12:17 Dose: 10 ml Medical Necessity - Tobacco Use Smoking Status: Never smoker Tobacco Use: Non-smoker Assessment/Plan All Active Problems Acute encephalopathy (Acute) Diabetic keto-acidosis (Acute) Seizure disorder (Acute) Elevated troponin (Acute) Hypernatremia (Acute) Hyperglycemia (Acute) Community acquired pneumonia (Acute) Bilateral leg weakness (Acute) The patient is a 73 year old M with a significant history of diabetes mellitus; hypertension; who presented to the emergency department with 2 weeks of progressively worsening bilateral lower extremity weakness and numbness. 1. Suspect metabolic encephalopathy * Patient had EEG in September 2018 which was reported as abnormal due to mild generalized slowing. No epileptiform discharges were noticed. * MRI C-spine reported as mild to moderate bilateral neuroforaminal stenosis at C5-6 and severe on the right at C6-7 on the right primarily due to bony hypertrophy * UTI ruled out. 2. Orthostatic hypotension * Patient blood pressure is stable 141/75. Heart rate in 90s. * IV fluids discontinued 3. LE weakness * MRI L spine was negative * Discussed with Dr. Larose, you reviewed the nerve conduction study but was limited due to patient not tolerating the procedure but did not see any overt significant findings. * CK normal * MRI brain does not show acute intracranial abnormality. * Patient was seen by Dr. Mckeon and discussed with him. He thinks it is subacute bilateral lower extremity weakness and common etiologies needs to be ruled out including demyelinating neuropathy like CIDP or GBS. He ordered autoimmune antibodies, serum electrophoresis AND immunofixation ANCA, KLARISSA. 4. Dementia * per family, patient has been well-kempt, even in [facility]. * now disheveled, unclear significance * TSH 3.1 on 10/05/18 * Folate 26. B12 1400. CK 47. * DC aricept 5. DVT prophylaxis: Heparin Discussed with the patient's and daughter. Microbiology Past 72 Hours 11/20/18 20:19 Urine, Random Urine Culture - Final Mixed Gram Positive Organisms Laboratory Results 11/26/18 17:02: POC Glucose 255 H 11/26/18 22:02: POC Glucose 228 H 11/27/18 05:25: WBC 4.6, RBC 4.26 L, Hgb 12.7 L, Hct 37.0 L, MCV 86.9, MCH 29.8, MCHC 34.3, RDW 13.9, RDW Differential 44.2 H, Plt Count 198, MPV 9.7, Immature Gran % (Auto) 0.000, Neut % (Auto) 36.3 L, Lymph % (Auto) 51.5 H, [place] % (Auto) 11.1 H, Eos % (Auto) 0.9, Baso % (Auto) 0.2, Absolute Neuts (auto) 1.7 L, Absolute Lymphs (auto) 2.37, Total Counted Not Reportable 11/27/18 05:25: Sodium 139, Potassium 3.8, Chloride 105, Carbon Dioxide 27.0, Anion Gap 7, BUN 23 H, Creatinine 0.76, Estim Creat Clear Calc 65.17, Est GFR (MDRD) Af Amer 130, Est GFR (MDRD) Non-Af 107, BUN/Creatinine Ratio 30.3 H, Glucose 109 H, Calcium 9.1, C-React Prot Ext Range < 2.90 11/27/18 05:25: Hemoglobin A1c 6.5 H 11/27/18 06:46: POC Glucose 131 H 11/27/18 10:06: POC Glucose 209 H 11/27/18 12:17: POC Glucose 275 H 11/27/18 14:33: Plt Count 202 11/27/18 14:33: PT 13.6, INR 1.1, APTT 31.9 11/27/18 14:33: ESR 6 Clinical Impression(s) from Imaging Studies Brain CT 11/24/18 11:29 IMPRESSION: Chronic involutional changes of the brain. Brain MRI 11/24/18 16:52 IMPRESSION: No acute intracranial abnormality. Mild chronic microvascular ischemic changes. Cervical Spine MRI 11/26/18 16:08 IMPRESSION: No evidence for acute fractures fixation. Mild spondylosis Mild to moderate bilateral neuroforaminal stenosis at C5-6 and severe on the right at C6-7 on the right primarily due to bony hypertrophy Code Visit Inpatient E&M: 56305 Subs Hosp L3
[2018-11-27 15:24] LABS: Erythrocyte Sedimentation Rate 6 mm/hr (0-20)
[2018-11-27 17:15] LABS: Bedside Glucose 203 mg/dL (70-110)
[2018-11-27] MEDS: Zolpidem Tartrate 5 MG Tablet PO (22:29)
[2018-11-27 22:30] LABS: CRP, High Sensitivity Cardiac 0.56 mg/L; Thyroid Stim Hormone (TSH) 2.95 uIU/mL (0.358-3.74)
[2018-11-27 22:50] LABS: Bedside Glucose 228 mg/dL (70-110)
[2018-11-27 22:53] LABS: Vitamin B12 1289 pg/mL (211-911)
[2018-11-28] VITALS (14 sets, daily range): BP systolic 122–169; BP diastolic 62–90; PULSE 90–120; RESP 16–18; TEMP 36.2–36.9; O2SAT 96–100
--- NOTE | 2018-11-28 04:57 | NURSING ---
Pt was very agitated and confused throughout the night. Pt claimed multiple times that there was a cat sitting on the bed as well as a little girl in a pink dress standing in the corner of the room. Pt became angry that we would not take him to his room and claimed that his rolex watch was stolen and that the staff were thieves. Re-orientation frequently provided. Also called to assure pt that the watch was taken home and is safe. Pt continues to distrust staff, hallucinate and can be oppositional to care.
[2018-11-28 05:35] LABS: Absolute Lymphocyte Count 1.93 X10^3/ul (0.83-4.51); Absolute Neutrophil Count 2.9 X10^3/uL (2.0-7.7); Basophil# 0.01 X10^3/uL; Basophil% 0.2 % (0-1); Eosinophil# 0.02 X10^3/uL; Eosinophils% 0.4 % (0-5); Hematocrit 36.5 % (40-54); Hemoglobin 12.5 g/dl (13.0-16.5); Lymphocyte # 1.93 X10^3/ul (4.0); Lymphocyte % 36.6 % (19-41); Mean Corp Hgb Conc 34.2 g/gl (32-36); Mean Corpuscular Hgb 30.3 pg (27.0-32.0); Mean Corpuscular Volume 88.4 fL (80-94); Mean Platelet Vol. 9.7 fl (6.2-12.0); Monocyte# 0.41 X10^3/uL; Monocyte% 7.8 % (0-10); Neutrophil % 54.8 % (47-70); Platelet Count 190 K/mm3 (150-450); RBC Distribution Width CV 14.1 % (11.6-14.6); RBC Distribution Width SD 45.6 fl (35.1-43.9); Red Blood Count 4.13 M/mm3 (4.6-6.2); White Blood Count 5.3 K/mm3 (4.4-11.0)
[2018-11-28 05:44] LABS: International Normalized Ratio 1.1; Prothrombin Time (Protime)PT. 13.5 SECONDS (11.7-14.9)
[2018-11-28 05:45] LABS: Partial Thromboplast Time 30.6 Seconds (24.1-36.2)
[2018-11-28 05:46] LABS: POSITIVE COUNT NO; POSITIVE DIFFERENTIAL NO; POSITIVE MORPHOLOGY NO
[2018-11-28] MEDS: Acetaminophen 500 MG Tablet 1000 MG PO ×3 (05:48→21:24)
[2018-11-28 06:55] LABS: Bedside Glucose 123 mg/dL (70-110)
--- NOTE | 2018-11-28 08:00 | RAD_ITS ---
Procedure: Fluoroscopically guided lumbar puncture. INDICATIONS: Confusion in the last 36 hours. Possible GBS. CONSENT: The entire procedure, risks, benefits and alternatives (including doing nothing) were discussed with the patient's preprocedure. Risks presented included (but were not limited to) infection/abscess, bleeding, pain, reaction to medications and severe/spinal headache potentially requiring blood patch. All patient questions were answered satisfactorily. Written consent was obtained, witnessed and placed on the patient's chart. TECHNIQUE: The patient was taken into the fluoroscopy suite and placed in the prone position. A short time out was observed. Limited and directed fluoroscopic evaluation was performed and an intended percutaneous site over the L4 laminar window was identified and marked. The soft tissues at the marked region were then thoroughly prepped and draped in the usual sterile manner. Local anesthesia was obtained with approximately 1.5 cc of 2% lidocaine without epinephrine. Next, a 22-gauge spinal needle was advanced from a slightly left paramedian approach through the dorsal soft tissues and tip placed within the thecal sac. From this position, approximately 14 cc of clear cerebrospinal fluid was collected in 4 vials. All devices were removed, the soft tissues cleansed and a Band-Aid applied. RAD/Fluoro Guided Lumbar Puncture IMPRESSION: Successful, fluoroscopically guided lumbar puncture. Complication: The patient tolerated the procedure well. There was no evident immediate post procedure complication. Electronically Signed: Fawad Brown MD at 10:57 EDT , Service support ,
--- NOTE | 2018-11-28 09:15 | CYSPIN_PTH ---
PATIENT: NUNO DAVIS LOC: U U#:[id number] AGE/SX: 73/M ROOM: [facility] RE11/24/[address]: Dr. Jerrod Nava MD : [id number] BED: 1 DIS: 12/04/2018 SPEC #: [id number] RECD: 11/28/18 12:49 STATUS: MARTHA REQ #: [id number] HENRY: 11/28/18 09:[address]: Jerrod Nava DEPT: CYTOLOGY RECD BY: García Olivarez ENTERED: 11/28/18 12:55 SP TYPE: CYSPIN FL OTHR DR: MD Dr. Mohinder Herrera MD Dr. Tai Chi Kwok, MD Tissues: Cerebrospinal Fluid Procedures: Pap Stain (control) Special Stain Group II Cytospin Fluid HEADER OPERATION: Lumbar puncture PRE-OP DIAGNOSIS: Confusion, possible GBS TISSUE SUBMITTED: Cerebrospinal fluid for cytology DIAGNOSIS CYTOLOGY Cerebrospinal fluid for cytology (cytospin): Negative for malignant cells. AM:chai 11/29/18 CYTOLOGY STUDY Slides are reviewed. CYTOLOGY GROSS Received is 3 ml of clear colorless fluid labeled with the patient's name and and designated per the requisition as CSF. Submitted for cytology preparation including cell block. / 11/28/18 TC:5 CPT: 32413
--- NOTE | 2018-11-28 09:26 | NURSING ---
PT TOLERATED LP WELL. FLUID MARKED COLLECTED AND SENT TO LAB. REPORT CALLED TO ALBERTO OATES.
[2018-11-28 09:42] LABS: Cytology, Body Fluid / CSF SEE PATHOLOGY REPORT
--- NOTE | 2018-11-28 10:08 | PCM.PN.HOSP ---
Patient Problems: Active and Suspected Problems Bilateral leg weakness (Acute) Subjective: Patient has bilateral lower extremity weakness. Patient had LP done in the morning along with EMG but no current nerve conduction study was done because of pain from the needle. As per the daughter, patient was mild groggy after he received [place] for the procedure. He is awake and conversant; although he is tangential in speech Vitals/I&O's: Vital Signs Temp Pulse Resp BP Pulse Ox 97.1 F L 99 16 144/62 H 99 11/28/18 07:45 11/28/18 07:45 11/28/18 07:45 11/28/18 07:45 11/28/18 07:45 Oxygen Delivery Method Room Air Weight: 152 lb 1.903 oz Body Mass Index (BMI) 21.8 Intake and Output for Last 24 Hours 11/26/18 11/27/18 11/28/18 23:59 23:59 23:59 Intake Total 680 / 680 480 / 480 Output Total 300 / 300 950 / 950 150 / 150 Balance 380 / 380 -470 / -470 -150 / -150 General: Alert, Disoriented HEENT: Atraumatic, PERRLA, EOMI, Normocephalic Neck: Supple, No JVD, Negative Carotid Bruits Lungs: Clear to auscultation, Normal air movement, No rhonchi, No wheeze, No rales Cardiovascular: Regular rate, Regular Rhythm, Normal S1, Normal S2, No murmurs Abdomen: Bowel Sounds Present, Soft, Non Tender, Non-Distended Extremities: No edema, Capillary Refill Less than 3 Seconds Musculoskeletal: Arthritic Changes Neurological: Cranial nerves II-XII grossly intact, - - Mild bilateral lower extremity weakness. Polyneuropathy of lower extremities Laboratory Results 11/27/18 10:06: POC Glucose 209 H 11/27/18 12:17: POC Glucose 275 H 11/27/18 14:33: Plt Count 202 11/27/18 14:33: PT 13.6, INR 1.1, APTT 31.9 11/27/18 14:33: ESR 6 11/27/18 16:59: POC Glucose 203 H 11/27/18 21:40: C-React Prot High Sens 0.56, TSH 2.95, Rheumatoid Factor 71.0 H 11/27/18 21:40: Vitamin B12 1289 H 11/27/18 21:40: Total Protein (PEP) Pending, Albumin (PEP) Pending, Globulin (PEP) Pending, Albumin/Globulin (PEP) Pending, Vtenq-7-Nwtrbhntb Pending, Uiojj-2-Tovzsohht Pending, Beta Globulins Pending, Gamma Globulins Pending, M-Jimi Pending, c-ANCA Antibody Pending, p-ANCA Antibody Pending, Anti-ss DNA IgG Ab Pending 11/27/18 21:40: KLARISSA Screen Pending, GUILLE-1 Antibody Pending, SS-A/Ro IgG Antibody Pending, SS-B/La IgG Antibody Pending, Sm (Rico) Antibody Pending, LAUNDROMAT WORKER Antibody Pending, Scl-70 Scleroderma Ab Pending, Double Strand DNA Ab Pending, Centromere B Antibody Pending 11/27/18 22:27: POC Glucose 228 H 11/28/18 05:10: WBC 5.3, RBC 4.13 L, Hgb 12.5 L, Hct 36.5 L, MCV 88.4, MCH 30.3, MCHC 34.2, RDW 14.1, RDW Differential 45.6 H, Plt Count 190, MPV 9.7, Immature Gran % (Auto) 0.200, Neut % (Auto) 54.8, Lymph % (Auto) 36.6, [place] % (Auto) 7.8, Eos % (Auto) 0.4, Baso % (Auto) 0.2, Absolute Neuts (auto) 2.9, Absolute Lymphs (auto) 1.93, Total Counted Not Reportable 11/28/18 05:10: PT 13.5, INR 1.1, APTT 30.6 11/28/18 06:45: POC Glucose 123 H 11/28/18 09:08: CSF Glucose Pending, CSF Total Protein Pending 11/28/18 09:08: CSF Cryptococcus Ag Pending 11/28/18 09:08: CSF Appearance Pending, CSF Color Pending, CSF WBC Pending, CSF RBC Pending, CSF Cell Count Tube # Pending, CSF Total Cell Counted Pending, CSF Comment Pending 11/28/18 09:08: Miscellaneous Cytology Pending Current Medications Acetaminophen (Tylenol) 1,000 mg PO Q8 [facility] Last Admin: 11/28/18 05:48 Dose: 1,000 mg Aspirin (Ecotrin) 81 mg PO DAILYCM [facility] Last Admin: 11/27/18 09:54 Dose: 81 mg Dextrose (D50w Syringe) 0 gm IV X1 PRN; Protocol PRN Reason: Hypoglycemia Divalproex Sodium (Depakote) 250 mg PO BID [facility] Last Admin: 11/27/18 22:30 Dose: 250 mg Glucagon () 1 mg IM .X1 PRN PRN Reason: Hypoglycemia Heparin Sodium (Porcine) (Heparin Na) 5,000 unit SC Q12 [facility] Last Admin: 11/27/18 22:30 Dose: 5,000 unit Hydralazine HCl (Apresoline Iv) 10 mg IV Q6H PRN PRN PRN Reason: SBP>180 mmhg Ibuprofen (Motrin) 600 mg PO Q8H PRN PRN PRN Reason: PAIN Last Admin: 11/26/18 10:30 Dose: 600 mg Insulin Glargine (Lantus (Bkc)) 15 units SC BID [facility] Last Admin: 11/27/18 22:30 Dose: 15 units Insulin Human Lispro (Humalog Kwikpen (Bkc)) 0 unit SQ ACHS [facility]; Protocol Last Admin: 11/28/18 06:55 Dose: Not Given Lisinopril (Zestril) 20 mg PO DAILY [facility] Last Admin: 11/27/18 09:54 Dose: 20 mg Nutritional Formula (Lactose Free) (Glucerna Shake) 120 ml PO 4X/DAY [facility] Last Admin: 11/27/18 22:34 Dose: 120 ml Pioglitazone HCl (Actos) 30 mg PO DAILY [facility] Last Admin: 11/27/18 09:54 Dose: 30 mg Sodium Chloride () 5 - 15 ml IV UD PRN PRN Reason: SALINE FLUSH Last Admin: 11/25/18 12:17 Dose: 10 ml Zolpidem Tartrate (Ambien (Generic)) 5 mg PO QHS PRN PRN PRN Reason: INSOMNIA Last Admin: 11/27/18 22:29 Dose: 5 mg Medical Necessity - Tobacco Use Smoking Status: Never smoker Tobacco Use: Non-smoker Assessment/Plan All Active Problems Acute encephalopathy (Acute) Diabetic keto-acidosis (Acute) Seizure disorder (Acute) Elevated troponin (Acute) Hypernatremia (Acute) Hyperglycemia (Acute) Community acquired pneumonia (Acute) Bilateral leg weakness (Acute) The patient is a 73 year old M with a significant history of diabetes mellitus; hypertension; who presented to the emergency department with 2 weeks of progressively worsening bilateral lower extremity weakness and numbness. 1. Suspect metabolic encephalopathy Patient had EEG in September 2018 which was reported as abnormal due to mild generalized slowing. No epileptiform discharges were noticed. MRI C-spine reported as mild to moderate bilateral neuroforaminal stenosis at C5-6 and severe on the right at C6-7 on the right primarily due to bony hypertrophy Initial urine culture shows mixed gram-positive organism UTI ruled out. Repeat UA was done shows 25-50 cells. repeat urine culture ordered. 2. Orthostatic hypotension Patient blood pressure is stable 141/75. Heart rate in 90s. IV fluids discontinued 3. LE weakness MRI L spine was negative Discussed with Dr. Larose, you reviewed the nerve conduction study but was limited due to patient not tolerating the procedure but did not see any overt significant findings. CK normal MRI brain does not show acute intracranial abnormality. Patient was seen by Dr. Mckeon and discussed with him. He thinks it is subacute bilateral lower extremity weakness and common etiologies needs to be ruled out including demyelinating neuropathy like CIDP or GBS. He ordered autoimmune antibodies, serum electrophoresis AND immunofixation ANCA, KLARISSA. CSF fluid analysis shows 5 mononuclear WBC, total protein 86, glucose 82 with suspicion of albuminocytologic dissociation. 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 4. Dementia per family, patient has been well-kempt, even in [facility]. now disheveled, unclear significance TSH 3.1 on 10/05/18 Folate 26. B12 1400. CK 47. DC aricept 5. DVT prophylaxis: Heparin Discussed with the patient's and daughter. Microbiology Past 72 Hours 11/28/18 09:08 Csf, Spinal Fluid Gram Stain - Final Laboratory Results 11/27/18 16:59: POC Glucose 203 H 11/27/18 21:40: C-React Prot High Sens 0.56, TSH 2.95, Rheumatoid Factor 71.0 H 11/27/18 21:40: Vitamin B12 1289 H 11/27/18 22:27: POC Glucose 228 H 11/28/18 05:10: WBC 5.3, RBC 4.13 L, Hgb 12.5 L, Hct 36.5 L, MCV 88.4, MCH 30.3, MCHC 34.2, RDW 14.1, RDW Differential 45.6 H, Plt Count 190, MPV 9.7, Immature Gran % (Auto) 0.200, Neut % (Auto) 54.8, Lymph % (Auto) 36.6, [place] % (Auto) 7.8, Eos % (Auto) 0.4, Baso % (Auto) 0.2, Absolute Neuts (auto) 2.9, Absolute Lymphs (auto) 1.93, Total Counted Not Reportable 11/28/18 05:10: PT 13.5, INR 1.1, APTT 30.6 11/28/18 06:45: POC Glucose 123 H 11/28/18 09:00: Miscellaneous Test Pending 11/28/18 09:08: CSF Glucose 82 H, CSF Total Protein 86.0 H 11/28/18 09:08: CSF Cryptococcus Ag Pending 11/28/18 09:08: Fld Polynuclear WBCs # 0.000, Fld Polynuclear WBCs % 0.0, Fluid Mononuclear WBCs 0.005, Fld Mononuclear WBCs % 100.0, CSF Appearance CLEAR, CSF Color COLORLESS, CSF WBC 0.005, CSF RBC 115 H, CSF Cell Count Tube # 4, CSF Total Cell Counted 0.005 H, CSF Comment May follow 11/28/18 09:08: Miscellaneous Cytology Pending 11/28/18 11:58: POC Glucose 151 H 11/28/18 13:05: Urine Color Yellow, Urine Clarity Sl. Cloudy, Urine pH 7.0, Ur Specific [place] 1.010, Urine Protein 30 H, Urine Glucose (UA) Normal, Urine Ketones 15 H, Urine Occult Blood 250 H, Urine Nitrite Negative, Urine Bilirubin Negative, Urine Urobilinogen Normal, Ur Leukocyte Esterase 500 H, Urine RBC 50-100 SEEN, Urine WBC 25-50 SEEN, Ur Squamous Epith Cells 0-5 SEEN, Ur Transition Epith Cell 0 SEEN, Urine Bacteria 1+, Urine Mucus 1+ Clinical Impression(s) from Imaging Studies Brain CT 11/24/18 11:29 IMPRESSION: Chronic involutional changes of the brain. Brain MRI 11/24/18 16:52 IMPRESSION: No acute intracranial abnormality. Mild chronic microvascular ischemic changes. Cervical Spine MRI 11/26/18 16:08 IMPRESSION: No evidence for acute fractures fixation. Mild spondylosis Mild to moderate bilateral neuroforaminal stenosis at C5-6 and severe on the right at C6-7 on the right primarily due to bony hypertrophy Code Visit Inpatient E&M: 55072 Subs Hosp L3
[2018-11-28 10:10] LABS: Body Fluid Mononuclear WBC # 0.005 10^3/uL; Total Cell Count CSF 0.005 10^3/uL (0.000-0.000); White Count, CSF 0.005 10^3/uL (0.000-0.005)
--- NOTE | 2018-11-28 10:12 | PN_ITS ---
Patient Problems: Active and Suspected Problems Bilateral leg weakness (Acute) Subjective: Patient has bilateral lower extremity weakness. Patient had LP done in the morning along with EMG but no current nerve conduction study was done because of pain from the needle. As per the daughter, patient was mild groggy after he received [place] for the procedure. He is awake and conversant; although he is tangential in speech Vitals/I&O's: Vital Signs Temp Pulse Resp BP Pulse Ox 97.1 F L 99 16 144/62 H 99 11/28/18 07:45 11/28/18 07:45 11/28/18 07:45 11/28/18 07:45 11/28/18 07:45 Oxygen Delivery Method Room Air Weight: 152 lb 1.903 oz Body Mass Index (BMI) 21.8 Intake and Output for Last 24 Hours 11/26/18 11/27/18 11/28/18 23:59 23:59 23:59 Intake Total 680 / 680 480 / 480 Output Total 300 / 300 950 / 950 150 / 150 Balance 380 / 380 -470 / -470 -150 / -150 General: Alert, Disoriented HEENT: Atraumatic, PERRLA, EOMI, Normocephalic Neck: Supple, No JVD, Negative Carotid Bruits Lungs: Clear to auscultation, Normal air movement, No rhonchi, No wheeze, No rales Cardiovascular: Regular rate, Regular Rhythm, Normal S1, Normal S2, No murmurs Abdomen: Bowel Sounds Present, Soft, Non Tender, Non-Distended Extremities: No edema, Capillary Refill Less than 3 Seconds Musculoskeletal: Arthritic Changes Neurological: Cranial nerves II-XII grossly intact, - - Mild bilateral lower extremity weakness. Polyneuropathy of lower extremities Laboratory Results 11/27/18 10:06: POC Glucose 209 H 11/27/18 12:17: POC Glucose 275 H 11/27/18 14:33: Plt Count 202 11/27/18 14:33: PT 13.6, INR 1.1, APTT 31.9 11/27/18 14:33: ESR 6 11/27/18 16:59: POC Glucose 203 H 11/27/18 21:40: C-React Prot High Sens 0.56, TSH 2.95, Rheumatoid Factor 71.0 H 11/27/18 21:40: Vitamin B12 1289 H 11/27/18 21:40: Total Protein (PEP) Pending, Albumin (PEP) Pending, Globulin (PEP) Pending, Albumin/Globulin (PEP) Pending, Szeeb-0-Nziqcafxp Pending, Jlrdz-4-Firesuesh Pending, Beta Globulins Pending, Gamma Globulins Pending, M- Jimi Pending, c-ANCA Antibody Pending, p-ANCA Antibody Pending, Anti-ss DNA IgG Ab Pending 11/27/18 21:40: KLARISSA Screen Pending, GUILLE-1 Antibody Pending, SS-A/Ro IgG Antibody Pending, SS-B/La IgG Antibody Pending, Sm (Rico) Antibody Pending, ART FRAMING MANAGER Antibody Pending, Scl-70 Scleroderma Ab Pending, Double Strand DNA Ab Pending, Centromere B Antibody Pending 11/27/18 22:27: POC Glucose 228 H 11/28/18 05:10: WBC 5.3, RBC 4.13 L, Hgb 12.5 L, Hct 36.5 L, MCV 88.4, MCH 30.3, MCHC 34.2, RDW 14.1, RDW Differential 45.6 H, Plt Count 190, MPV 9.7, Immature Gran % (Auto) 0.200, Neut % (Auto) 54.8, Lymph % (Auto) 36.6, [place] % (Auto) 7.8, Eos % (Auto) 0.4, Baso % (Auto) 0.2, Absolute Neuts (auto) 2.9, Absolute Lymphs (auto) 1.93, Total Counted Not Reportable 11/28/18 05:10: PT 13.5, INR 1.1, APTT 30.6 11/28/18 06:45: POC Glucose 123 H 11/28/18 09:08: CSF Glucose Pending, CSF Total Protein Pending 11/28/18 09:08: CSF Cryptococcus Ag Pending 11/28/18 09:08: CSF Appearance Pending, CSF Color Pending, CSF WBC Pending, CSF RBC Pending, CSF Cell Count Tube # Pending, CSF Total Cell Counted Pending, CSF Comment Pending 11/28/18 09:08: Miscellaneous Cytology Pending Current Medications Acetaminophen (Tylenol) 1,000 mg PO Q8 [facility] Last Admin: 11/28/18 05:48 Dose: 1,000 mg Aspirin (Ecotrin) 81 mg PO DAILYCM [facility] Last Admin: 11/27/18 09:54 Dose: 81 mg Dextrose (D50w Syringe) 0 gm IV X1 PRN; Protocol PRN Reason: Hypoglycemia Divalproex Sodium (Depakote) 250 mg PO BID [facility] Last Admin: 11/27/18 22:30 Dose: 250 mg Glucagon () 1 mg IM .X1 PRN PRN Reason: Hypoglycemia Heparin Sodium (Porcine) (Heparin Na) 5,000 unit SC Q12 [facility] Last Admin: 11/27/18 22:30 Dose: 5,000 unit Hydralazine HCl (Apresoline Iv) 10 mg IV Q6H PRN PRN PRN Reason: SBP>180 mmhg Ibuprofen (Motrin) 600 mg PO Q8H PRN PRN PRN Reason: PAIN Last Admin: 11/26/18 10:30 Dose: 600 mg Insulin Glargine (Lantus (Bkc)) 15 units SC BID [facility] Last Admin: 11/27/18 22:30 Dose: 15 units Insulin Human Lispro (Humalog Kwikpen (Bkc)) 0 unit SQ ACHS [facility]; Protocol Last Admin: 11/28/18 06:55 Dose: Not Given Lisinopril (Zestril) 20 mg PO DAILY [facility] Last Admin: 11/27/18 09:54 Dose: 20 mg Nutritional Formula (Lactose Free) (Glucerna Shake) 120 ml PO 4X/DAY [facility] Last Admin: 11/27/18 22:34 Dose: 120 ml Pioglitazone HCl (Actos) 30 mg PO DAILY [facility] Last Admin: 11/27/18 09:54 Dose: 30 mg Sodium Chloride () 5 - 15 ml IV UD PRN PRN Reason: SALINE FLUSH Last Admin: 11/25/18 12:17 Dose: 10 ml Zolpidem Tartrate (Ambien (Generic)) 5 mg PO QHS PRN PRN PRN Reason: INSOMNIA Last Admin: 11/27/18 22:29 Dose: 5 mg Medical Necessity - Tobacco Use Smoking Status: Never smoker Tobacco Use: Non-smoker Assessment/Plan All Active Problems Acute encephalopathy (Acute) Diabetic keto-acidosis (Acute) Seizure disorder (Acute) Elevated troponin (Acute) Hypernatremia (Acute) Hyperglycemia (Acute) Community acquired pneumonia (Acute) Bilateral leg weakness (Acute) The patient is a 73 year old M with a significant history of diabetes mellitus; hypertension; who presented to the emergency department with 2 weeks of progres sively worsening bilateral lower extremity weakness and numbness. 1. Suspect metabolic encephalopathy * Patient had EEG in September 2018 which was reported as abnormal due to mild generalized slowing. No epileptiform discharges were noticed. * MRI C-spine reported as mild to moderate bilateral neuroforaminal stenosis at C5-6 and severe on the right at C6-7 on the right primarily due to bony hypertrophy * Initial urine culture shows mixed gram-positive organism UTI ruled out. Repeat UA was done shows 25-50 cells. repeat urine culture ordered. 2. Orthostatic hypotension * Patient blood pressure is stable 141/75. Heart rate in 90s. * IV fluids discontinued 3. LE weakness * MRI L spine was negative * Discussed with Dr. Larose, you reviewed the nerve conduction study but was limited due to patient not tolerating the procedure but did not see any overt significant findings. * CK normal * MRI brain does not show acute intracranial abnormality. * Patient was seen by Dr. Mckeon and discussed with him. He thinks it is subacute bilateral lower extremity weakness and common etiologies needs to be ruled out including demyelinating neuropathy like CIDP or GBS. He ordered aut oimmune antibodies, serum electrophoresis AND immunofixation ANCA, KLARISSA. * CSF fluid analysis shows 5 mononuclear WBC, total protein 86, glucose 82 with suspicion of albuminocytologic dissociation. 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 4. Dementia * per family, patient has been well-kempt, [facility]. * now disheveled, unclear significance * TSH 3.1 on 10/05/18 * Folate 26. B12 1400. CK 47. * DC aricept 5. DVT prophylaxis: Heparin Discussed with the patient's and daughter. Microbiology Past 72 Hours 11/28/18 09:08 Csf, Spinal Fluid Gram Stain - Final Laboratory Results 11/27/18 16:59: POC Glucose 203 H 11/27/18 21:40: C-React Prot High Sens 0.56, TSH 2.95, Rheumatoid Factor 71.0 H 11/27/18 21:40: Vitamin B12 1289 H 11/27/18 22:27: POC Glucose 228 H 11/28/18 05:10: WBC 5.3, RBC 4.13 L, Hgb 12.5 L, Hct 36.5 L, MCV 88.4, MCH 30.3, MCHC 34.2, RDW 14.1, RDW Differential 45.6 H, Plt Count 190, MPV 9.7, Immature Gran % (Auto) 0.200, Neut % (Auto) 54.8, Lymph % (Auto) 36.6, [place] % (Auto) 7.8, Eos % (Auto) 0.4, Baso % (Auto) 0.2, Absolute Neuts (auto) 2.9, Absolute Lymphs (auto) 1.93, Total Counted Not Reportable 11/28/18 05:10: PT 13.5, INR 1.1, APTT 30.6 11/28/18 06:45: POC Glucose 123 H 11/28/18 09:00: Miscellaneous Test Pending 11/28/18 09:08: CSF Glucose 82 H, CSF Total Protein 86.0 H 11/28/18 09:08: CSF Cryptococcus Ag Pending 11/28/18 09:08: Fld Polynuclear WBCs # 0.000, Fld Polynuclear WBCs % 0.0, Fluid Mononuclear WBCs 0.005, Fld Mononuclear WBCs % 100.0, CSF Appearance CLEAR, CSF Color COLORLESS, CSF WBC 0.005, CSF RBC 115 H, CSF Cell Count Tube # 4, CSF To ankur Cell Counted 0.005 H, CSF Comment May follow 11/28/18 09:08: Miscellaneous Cytology Pending 11/28/18 11:58: POC Glucose 151 H 11/28/18 13:05: Urine Color Yellow, Urine Clarity Sl. Cloudy, Urine pH 7.0, Ur Specific [place] 1.010, Urine Protein 30 H, Urine Glucose (UA) Normal, Urine Ketones 15 H, Urine Occult Blood 250 H, Urine Nitrite Negative, Urine Bilirubin Negative, Urine Urobilinogen Normal, Ur Leukocyte Esterase 500 H, Urine RBC 50- 100 SEEN, Urine WBC 25-50 SEEN, Ur Squamous Epith Cells 0-5 SEEN, Ur Transition Epith Cell 0 SEEN, Urine Bacteria 1+, Urine Mucus 1+ Clinical Impression(s) from Imaging Studies Brain CT 11/24/18 11:29 IMPRESSION: Chronic involutional changes of the brain. Brain MRI 11/24/18 16:52 IMPRESSION: No acute intracranial abnormality. Mild chronic microvascular ischemic changes. Cervical Spine MRI 11/26/18 16:08 IMPRESSION: No evidence for acute fractures fixation. Mild spondylosis Mild to moderate bilateral neuroforaminal stenosis at C5-6 and severe on the right at C6-7 on the right primarily due to bony hypertrophy Code Visit Inpatient E&M: 51486 Subs Hosp L3
[2018-11-28 10:34] LABS: Glucose Spinal Fluid 82 mg/dL (40-75)
[2018-11-28 10:53] LABS: Appearance CSF (character) CLEAR (Clear); Auto B Fluid Analyzer BKGD Ct COUNTS W/IN LIMITS (W/IN LIMITS); CSF Color COLORLESS (Colorless); Tested Tube # 4
[2018-11-28 10:54] LABS: Body Fluid QC Type(s) BF1Q; RBC Count, Spinal Fluid 115 /mm-3 (None seen)
[2018-11-28] MEDS: Aspirin E.C. 81 MG Tablet PO (12:04)
[2018-11-28] MEDS: Heparin Injection (Vial) 5,000 UNIT/ML VIAL 5000 UNIT SC (12:04)
[2018-11-28] MEDS: Divalproex Sodium 250 MG Tablet PO ×2 (12:04→21:23)
[2018-11-28] MEDS: Lisinopril 20 MG Tablet PO (12:04)
[2018-11-28] MEDS: Insulin Lispro 100 UNIT/ML INSULN.PEN SQ ×2 (12:04→17:01)
[2018-11-28] MEDS: Pioglitazone Hydrochloride 30 MG Tablet PO (12:06)
[2018-11-28 12:30] LABS: Bedside Glucose 151 mg/dL (70-110)
[2018-11-28 13:37] LABS: Color, Urine Yellow (Yellow); Glucose, Dipstick Normal (Normal); Ketone-Dipstick 15 mg/dl (Negative); Leukocyte Esterase-Dipstick 500 /ul (Negative); Nitrite-Dipstick Negative (Negative); Occult Blood-Urine 250 /ul (Negative); Protein-Dipstick 30 mg/dl (Negative); Urine Bilirubin Dipstick Negative (Negative); Urine Clarity Sl. Cloudy (Clear); Urine Urobilinogen Normal (Normal)
[2018-11-28 13:49] LABS: Bacteria 1+ /hpf (None Seen); Mucous, Urine 1+ /hpf (<or=2+); Red Blood Cells-Urine 50-100 SEEN /hpf (0-5); Squamous Epithelial Cells - UA 0-5 SEEN /hpf (0-5); Transitional Epithelial - Ur 0 SEEN /hpf (0-5); White Blood Cells 25-50 SEEN /hpf (0-5)
--- NOTE | 2018-11-28 15:07 | NEURO ---
NCS and/or EMG Patient Report Ordering Doctor: Mohinder Mckeon DATE OF SERVICE: 11/28/18 Negro Culver is a 73-year-old male referred for electrodiagnostic testing of the lower limbs. Nerve conduction testing was performed, though needle EMG testing was not. He is admitted to the hospital with lower extremity numbness weakness and sharp pain. He has a history of falls. Electrodiagnostic findings: Absent peroneal motor response bilaterally when measured at the extensor digitorum brevis. Right common peroneal motor response at the tibialis anterior demonstrated a normal distal latency with reduced amplitude. Right tibial motor response demonstrates prolonged distal latency with reduced amplitude and conduction velocity. Prolonged right tibial F wave. Left peroneal F wave was not obtained. H reflex absent bilaterally. Sural responses unobtainable. Electrodiagnostic impression: This is an abnormal study 1. 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 No assessment can be made regarding lumbosacral radiculopathy, as needle EMG testing was not performed. If there are any further questions, please do not hesitate to contact me.
--- NOTE | 2018-11-28 15:11 | CASEMGMT ---
KARI called [facility] and left a message letting them know patient will not be coming today, but likely tomorrow. KARI asked for a return call regarding whether or not pre-cert is still good. Tashia SANTANA
--- NOTE | 2018-11-28 16:00 | PCM.PN.NEU ---
Patient Problems: Active and Suspected Problems Bilateral leg weakness (Acute) Subjective: No issues overnight. Per daughter patient is having visual hallucinating since this morning. - Physical Exam General: Alert HEENT: Normocephalic Neck: Supple Lungs: Normal air movement Cardiovascular: Normal S1, Normal S2 Abdomen: Bowel Sounds Present Extremities: No cyanosis Neurological: - - consious, alert, AoAx3, CN 2-12 grossly intact, power 5/5 both UE, 1/5 Both LE, plantars B/L flexor, Reflexes + B/L B/S/T, areflexia B/L K/A, no sensory loss, no cerebellar signs, gait deferred. Psych/Mental Status: Normal Affect Vital Signs Temp Pulse Resp BP Pulse Ox 98.3 F 90 16 159/90 H 100 11/28/18 12:24 11/28/18 12:24 11/28/18 12:24 11/28/18 12:24 11/28/18 12:24 Oxygen Delivery Method Room Air Weight: 69 kg Body Mass Index (BMI) 21.8 Intake and Output for Last 24 Hours 11/26/18 11/27/18 11/28/18 23:59 23:59 23:59 Intake Total 680 / 680 480 / 480 240 / 240 Output Total 300 / 300 950 / 950 300 / 300 Balance 380 / 380 -470 / -470 -60 / -60 Microbiology Past 72 Hours 11/28/18 09:08 Gram Stain - Final Csf, Spinal Fluid Laboratory Tests Past 24 Hrs 11/27/18 11/27/18 11/27/18 21:40 21:40 21:40 WBC RBC Hgb Hct MCV MCH MCHC RDW RDW Differential Plt Count MPV Immature Gran % (Auto) Neut % (Auto) Lymph % (Auto) [place] % (Auto) Eos % (Auto) Baso % (Auto) Absolute Neuts (auto) Absolute Lymphs (auto) Total Counted PT INR APTT C-React Prot High Sens 0.56 Total Protein (PEP) Pending Albumin (PEP) Pending Globulin (PEP) Pending Albumin/Globulin (PEP) Pending Bnmpf-1-Vrnkfolgq Pending Peckj-6-Funsflzdq Pending Beta Globulins Pending Gamma Globulins Pending M-Jimi Pending Vitamin B12 1289 H TSH 2.95 Urine Color Urine Clarity Urine pH Ur Specific [place] Urine Protein Urine Glucose (UA) Urine Ketones Urine Occult Blood Urine Nitrite Urine Bilirubin Urine Urobilinogen Ur Leukocyte Esterase Urine RBC Urine WBC Ur Squamous Epith Cells Ur Transition Epith Cell Urine Bacteria Urine Mucus Fld Polynuclear WBCs # Fld Polynuclear WBCs % Fluid Mononuclear WBCs Fld Mononuclear WBCs % CSF Appearance CSF Color CSF WBC CSF RBC CSF Cell Count Tube # CSF Total Cell Counted CSF Comment CSF Glucose CSF Total Protein CSF Cryptococcus Ag Rheumatoid Factor 71.0 H KLARISSA Screen c-ANCA Antibody Pending p-ANCA Antibody Pending GUILLE-1 Antibody SS-A/Ro IgG Antibody SS-B/La IgG Antibody Sm (Rico) Antibody APPRENTICE CARPENTER Antibody Scl-70 Scleroderma Ab Double Strand DNA Ab Anti-ss DNA IgG Ab Pending Centromere B Antibody Miscellaneous Cytology Miscellaneous Test 11/27/18 11/28/18 11/28/18 21:40 05:10 05:10 WBC 5.3 RBC 4.13 L Hgb 12.5 L Hct 36.5 L MCV 88.4 MCH 30.3 MCHC 34.2 RDW 14.1 RDW Differential 45.6 H Plt Count 190 MPV 9.7 Immature Gran % (Auto) 0.200 Neut % (Auto) 54.8 Lymph % (Auto) 36.6 [place] % (Auto) 7.8 Eos % (Auto) 0.4 Baso % (Auto) 0.2 Absolute Neuts (auto) 2.9 Absolute Lymphs (auto) 1.93 Total Counted Not Reportable PT 13.5 INR 1.1 APTT 30.6 C-React Prot High Sens Total Protein (PEP) Albumin (PEP) Globulin (PEP) Albumin/Globulin (PEP) Drbdp-4-Udexmrxsb Cassn-5-Azkjyygbi Beta Globulins Gamma Globulins M-Jimi Vitamin B12 TSH Urine Color Urine Clarity Urine pH Ur Specific [place] Urine Protein Urine Glucose (UA) Urine Ketones Urine Occult Blood Urine Nitrite Urine Bilirubin Urine Urobilinogen Ur Leukocyte Esterase Urine RBC Urine WBC Ur Squamous Epith Cells Ur Transition Epith Cell Urine Bacteria Urine Mucus Fld Polynuclear WBCs # Fld Polynuclear WBCs % Fluid Mononuclear WBCs Fld Mononuclear WBCs % CSF Appearance CSF Color CSF WBC CSF RBC CSF Cell Count Tube # CSF Total Cell Counted CSF Comment CSF Glucose CSF Total Protein CSF Cryptococcus Ag Rheumatoid Factor KLARISSA Screen Pending c-ANCA Antibody p-ANCA Antibody GUILLE-1 Antibody Pending SS-A/Ro IgG Antibody Pending SS-B/La IgG Antibody Pending Sm (Rico) Antibody Pending APPRENTICE CARPENTER Antibody Pending Scl-70 Scleroderma Ab Pending Double Strand DNA Ab Pending Anti-ss DNA IgG Ab Centromere B Antibody Pending Miscellaneous Cytology Miscellaneous Test 11/28/18 11/28/18 11/28/18 09:00 09:08 09:08 WBC RBC Hgb Hct MCV MCH MCHC RDW RDW Differential Plt Count MPV Immature Gran % (Auto) Neut % (Auto) Lymph % (Auto) [place] % (Auto) Eos % (Auto) Baso % (Auto) Absolute Neuts (auto) Absolute Lymphs (auto) Total Counted PT INR APTT C-React Prot High Sens Total Protein (PEP) Albumin (PEP) Globulin (PEP) Albumin/Globulin (PEP) Delsb-6-Muqzhmkth Stvyx-2-Siffntikw Beta Globulins Gamma Globulins M-Jimi Vitamin B12 TSH Urine Color Urine Clarity Urine pH Ur Specific [place] Urine Protein Urine Glucose (UA) Urine Ketones Urine Occult Blood Urine Nitrite Urine Bilirubin Urine Urobilinogen Ur Leukocyte Esterase Urine RBC Urine WBC Ur Squamous Epith Cells Ur Transition Epith Cell Urine Bacteria Urine Mucus Fld Polynuclear WBCs # Fld Polynuclear WBCs % Fluid Mononuclear WBCs Fld Mononuclear WBCs % CSF Appearance CSF Color CSF WBC CSF RBC CSF Cell Count Tube # CSF Total Cell Counted CSF Comment CSF Glucose 82 H CSF Total Protein 86.0 H CSF Cryptococcus Ag Pending Rheumatoid Factor KLARISSA Screen c-ANCA Antibody p-ANCA Antibody GUILLE-1 Antibody SS-A/Ro IgG Antibody SS-B/La IgG Antibody Sm (Rico) Antibody APPRENTICE CARPENTER Antibody Scl-70 Scleroderma Ab Double Strand DNA Ab Anti-ss DNA IgG Ab Centromere B Antibody Miscellaneous Cytology Miscellaneous Test Pending 11/28/18 11/28/18 11/28/18 09:08 09:08 13:05 WBC RBC Hgb Hct MCV MCH MCHC RDW RDW Differential Plt Count MPV Immature Gran % (Auto) Neut % (Auto) Lymph % (Auto) [place] % (Auto) Eos % (Auto) Baso % (Auto) Absolute Neuts (auto) Absolute Lymphs (auto) Total Counted PT INR APTT C-React Prot High Sens Total Protein (PEP) Albumin (PEP) Globulin (PEP) Albumin/Globulin (PEP) Ecnqr-7-Yturitklh Llzko-9-Elkmdmmrg Beta Globulins Gamma Globulins M-Jimi Vitamin B12 TSH Urine Color Yellow Urine Clarity Sl. Cloudy Urine pH 7.0 Ur Specific [place] 1.010 Urine Protein 30 H Urine Glucose (UA) Normal Urine Ketones 15 H Urine Occult Blood 250 H Urine Nitrite Negative Urine Bilirubin Negative Urine Urobilinogen Normal Ur Leukocyte Esterase 500 H Urine RBC 50-100 SEEN Urine WBC 25-50 SEEN Ur Squamous Epith Cells 0-5 SEEN Ur Transition Epith Cell 0 SEEN Urine Bacteria 1+ Urine Mucus 1+ Fld Polynuclear WBCs # 0.000 Fld Polynuclear WBCs % 0.0 Fluid Mononuclear WBCs 0.005 Fld Mononuclear WBCs % 100.0 CSF Appearance CLEAR CSF Color COLORLESS CSF WBC 0.005 CSF RBC 115 H CSF Cell Count Tube # 4 CSF Total Cell Counted 0.005 H CSF Comment May follow CSF Glucose CSF Total Protein CSF Cryptococcus Ag Rheumatoid Factor KLARISSA Screen c-ANCA Antibody p-ANCA Antibody GUILLE-1 Antibody SS-A/Ro IgG Antibody SS-B/La IgG Antibody Sm (Rico) Antibody APPRENTICE CARPENTER Antibody Scl-70 Scleroderma Ab Double Strand DNA Ab Anti-ss DNA IgG Ab Centromere B Antibody Miscellaneous Cytology Pending Miscellaneous Test POC Glucose 11/28/18 11/28/18 11/27/18 11:58 06:45 22:27 POC Glucose 151 H 123 H 228 H 11/27/18 16:59 POC Glucose 203 H Medical Necessity - Tobacco Use Smoking Status: Never smoker Tobacco Use: Non-smoker Assessment/Plan All Active Problems Acute encephalopathy (Acute) Diabetic keto-acidosis (Acute) Seizure disorder (Acute) Elevated troponin (Acute) Hypernatremia (Acute) Hyperglycemia (Acute) Community acquired pneumonia (Acute) Bilateral leg weakness (Acute) 73-year-old male with PMH HTN, DM, neuropathy who was admitted to [facility] in September 2018 after being found unresponsive, was found in DKA then, later was in the TCU for rehabilitation at the [facility] where he was discharged on 10/03/2018. Since then he has been having progressive pain in both the feet especially the toes has been using walker to ambulate and had been has been having progressive weakness in both legs, with weakness worsening over the past few weeks. MRI brain done during this admission did not show anything acute, MRI L-spine done on 11/17/2018 reported to show spinal stenosis at L3-L4, L4-L5 and L5-S1 secondary to disc disease and bony hypertrophy related to the left, MRI C-spine done during this admission reported to show mild to moderate bilateral neuroforaminal stenosis at C5-C6 and severe on the right at C6-C7 on the right primarily due to bony hypertrophy, mild spondylosis and no evidence of acute fractures. UA on admission was reported to be cloudy with LE 500, WBC 25?50, nitrite positive and urine culture reported to show gram-positive organisms and per hospitalist it is probably contamination. Per he never had seizures, has been put on Depakote by Dr. Kiran for unclear reasons. Impression B/L LE weakness Cervical/lumbar stenosis Neuropathy vs GBS variants Plan -EMG/NCS both LE- Right common peroneal motor response at the tibialis anterior demonstrated a normal distal latency with reduced amplitude. Right tibial motor response demonstrates prolonged distal latency with reduced amplitude and conduction velocity. Prolonged right tibial F wave. Left peroneal F wave was not obtained. H reflex absent bilaterally. Sural responses unobtainable. 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 -LP- WBCx-5, protein 86 (high), glucose 82 -Labs reviewed- Total CK 47, LFTs-AST/ALT-17/33, Qvw8w-9.5, Vitamin [id number], TSH-2.95, ESR-6, CRP-0.5, RF-71 -Await KLARISSA/ANCA/SSa/SSb,SPEP with EDSON, UPEP with EDSON, anti GQ1 b antibody, anti GM 1 antibody and paraneoplastic antibodies -Rheumatology consult for high RF. -Repeat UA shows WBCs 25-50, bacteria +,LE 500. Urine culture sent -On Depakote -Trial of IVIG given the patient's clinical presentation, per patient's , patient has pain in the feet/legs along with weakness which started around middle of October to the extent that patient is unable to walk. S/E of IVIG discussed in detail with family and patient. IVIG 0.4 g/kg/day for 5 days for a total dose of 2 g/kg. -Trial Lyrica 50 mg PO BID for neuropathic pain. -Spine surgery consult -GI/DVT prophylaxis -Fall precautions -Further medical management per hospitalist team -Follow up with Neurology as outpatient in 6 weeks -Please call with questions if any -Thank you for allowing us to participate in patient's care and management
--- NOTE | 2018-11-28 16:04 | PN.NEURO_ITS ---
Patient Problems: Active and Suspected Problems Bilateral leg weakness (Acute) Subjective: No issues overnight. Per daughter patient is having visual hallucinating since this morning. - Physical Exam General: Alert HEENT: Normocephalic Neck: Supple Lungs: Normal air movement Cardiovascular: Normal S1, Normal S2 Abdomen: Bowel Sounds Present Extremities: No cyanosis Neurological: - - consious, alert, AoAx3, CN 2-12 grossly intact, power 5/5 both UE, 1/5 Both LE, plantars B/L flexor, Reflexes + B/L B/S/T, areflexia B/L K/A, no sensory loss, no cerebellar signs, gait deferred. Psych/Mental Status: Normal Affect Vital Signs Temp Pulse Resp BP Pulse Ox 98.3 F 90 16 159/90 H 100 11/28/18 12:24 11/28/18 12:24 11/28/18 12:24 11/28/18 12:24 11/28/18 12:24 Oxygen Delivery Method Room Air Weight: 69 kg Body Mass Index (BMI) 21.8 Intake and Output for Last 24 Hours 11/26/18 11/27/18 11/28/18 23:59 23:59 23:59 Intake Total 680 / 680 480 / 480 240 / 240 Output Total 300 / 300 950 / 950 300 / 300 Balance 380 / 380 -470 / -470 -60 / -60 Microbiology Past 72 Hours 11/28/18 09:08 Gram Stain - Final Csf, Spinal Fluid Laboratory Tests Past 24 Hrs 11/27/18 11/27/18 11/27/18 21:40 21:40 21:40 WBC RBC Hgb Hct MCV MCH MCHC RDW RDW Differential Plt Count MPV Immature Gran % (Auto) Neut % (Auto) Lymph % (Auto) [place] % (Auto) Eos % (Auto) Baso % (Auto) Absolute Neuts (auto) Absolute Lymphs (auto) Total Counted PT INR APTT C-React Prot High Sens 0.56 Total Protein (PEP) Pending Albumin (PEP) Pending Globulin (PEP) Pending Albumin/Globulin (PEP) Pending Rnonn-9-Xuzauwgub Pending Azlqs-3-Zmedowyps Pending Beta Globulins Pending Gamma Globulins Pending M-Jimi Pending Vitamin B12 1289 H TSH 2.95 Urine Color Urine Clarity Urine pH Ur Specific [place] Urine Protein Urine Glucose (UA) Urine Ketones Urine Occult Blood Urine Nitrite Urine Bilirubin Urine Urobilinogen Ur Leukocyte Esterase Urine RBC Urine WBC Ur Squamous Epith Cells Ur Transition Epith Cell Urine Bacteria Urine Mucus Fld Polynuclear WBCs # Fld Polynuclear WBCs % Fluid Mononuclear WBCs Fld Mononuclear WBCs % CSF Appearance CSF Color CSF WBC CSF RBC CSF Cell Count Tube # CSF Total Cell Counted CSF Comment CSF Glucose CSF Total Protein CSF Cryptococcus Ag Rheumatoid Factor 71.0 H KLARISSA Screen c-ANCA Antibody Pending p-ANCA Antibody Pending GUILLE-1 Antibody SS-A/Ro IgG Antibody SS-B/La IgG Antibody Sm (Rico) Antibody CERTIFIED DIETARY MANAGER Antibody Scl-70 Scleroderma Ab Double Strand DNA Ab Anti-ss DNA IgG Ab Pending Centromere B Antibody Miscellaneous Cytology Miscellaneous Test 11/27/18 11/28/18 11/28/18 21:40 05:10 05:10 WBC 5.3 RBC 4.13 L Hgb 12.5 L Hct 36.5 L MCV 88.4 MCH 30.3 MCHC 34.2 RDW 14.1 RDW Differential 45.6 H Plt Count 190 MPV 9.7 Immature Gran % (Auto) 0.200 Neut % (Auto) 54.8 Lymph % (Auto) 36.6 [place] % (Auto) 7.8 Eos % (Auto) 0.4 Baso % (Auto) 0.2 Absolute Neuts (auto) 2.9 Absolute Lymphs (auto) 1.93 Total Counted Not Reportable PT 13.5 INR 1.1 APTT 30.6 C-React Prot High Sens Total Protein (PEP) Albumin (PEP) Globulin (PEP) Albumin/Globulin (PEP) Lehys-2-Leahfxmpd Srdbp-6-Nkocfsqpc Beta Globulins Gamma Globulins M-Jimi Vitamin B12 TSH Urine Color Urine Clarity Urine pH Ur Specific [place] Urine Protein Urine Glucose (UA) Urine Ketones Urine Occult Blood Urine Nitrite Urine Bilirubin Urine Urobilinogen Ur Leukocyte Esterase Urine RBC Urine WBC Ur Squamous Epith Cells Ur Transition Epith Cell Urine Bacteria Urine Mucus Fld Polynuclear WBCs # Fld Polynuclear WBCs % Fluid Mononuclear WBCs Fld Mononuclear WBCs % CSF Appearance CSF Color CSF WBC CSF RBC CSF Cell Count Tube # CSF Total Cell Counted CSF Comment CSF Glucose CSF Total Protein CSF Cryptococcus Ag Rheumatoid Factor KLARISSA Screen Pending c-ANCA Antibody p-ANCA Antibody GUILLE-1 Antibody Pending SS-A/Ro IgG Antibody Pending SS-B/La IgG Antibody Pending Sm (Rico) Antibody Pending CERTIFIED DIETARY MANAGER Antibody Pending Scl-70 Scleroderma Ab Pending Double Strand DNA Ab Pending Anti-ss DNA IgG Ab Centromere B Antibody Pending Miscellaneous Cytology Miscellaneous Test 11/28/18 11/28/18 11/28/18 09:00 09:08 09:08 WBC RBC Hgb Hct MCV MCH MCHC RDW RDW Differential Plt Count MPV Immature Gran % (Auto) Neut % (Auto) Lymph % (Auto) [place] % (Auto) Eos % (Auto) Baso % (Auto) Absolute Neuts (auto) Absolute Lymphs (auto) Total Counted PT INR APTT C-React Prot High Sens Total Protein (PEP) Albumin (PEP) Globulin (PEP) Albumin/Globulin (PEP) Fzyyj-2-Webxkikbv Lwgxg-0-Havlhjfix Beta Globulins Gamma Globulins M-Jimi Vitamin B12 TSH Urine Color Urine Clarity Urine pH Ur Specific [place] Urine Protein Urine Glucose (UA) Urine Ketones Urine Occult Blood Urine Nitrite Urine Bilirubin Urine Urobilinogen Ur Leukocyte Esterase Urine RBC Urine WBC Ur Squamous Epith Cells Ur Transition Epith Cell Urine Bacteria Urine Mucus Fld Polynuclear WBCs # Fld Polynuclear WBCs % Fluid Mononuclear WBCs Fld Mononuclear WBCs % CSF Appearance CSF Color CSF WBC CSF RBC CSF Cell Count Tube # CSF Total Cell Counted CSF Comment CSF Glucose 82 H CSF Total Protein 86.0 H CSF Cryptococcus Ag Pending Rheumatoid Factor KLARISSA Screen c-ANCA Antibody p-ANCA Antibody GUILLE-1 Antibody SS-A/Ro IgG Antibody SS-B/La IgG Antibody Sm (Rico) Antibody CERTIFIED DIETARY MANAGER Antibody Scl-70 Scleroderma Ab Double Strand DNA Ab Anti-ss DNA IgG Ab Centromere B Antibody Miscellaneous Cytology Miscellaneous Test Pending 11/28/18 11/28/18 11/28/18 09:08 09:08 13:05 WBC RBC Hgb Hct MCV MCH MCHC RDW RDW Differential Plt Count MPV Immature Gran % (Auto) Neut % (Auto) Lymph % (Auto) [place] % (Auto) Eos % (Auto) Baso % (Auto) Absolute Neuts (auto) Absolute Lymphs (auto) Total Counted PT INR APTT C-React Prot High Sens Total Protein (PEP) Albumin (PEP) Globulin (PEP) Albumin/Globulin (PEP) Hpjcu-3-Knuapfhdb Glwej-2-Dbptrjrqy Beta Globulins Gamma Globulins M-Jimi Vitamin B12 TSH Urine Color Yellow Urine Clarity Sl. Cloudy Urine pH 7.0 Ur Specific [place] 1.010 Urine Protein 30 H Urine Glucose (UA) Normal Urine Ketones 15 H Urine Occult Blood 250 H Urine Nitrite Negative Urine Bilirubin Negative Urine Urobilinogen Normal Ur Leukocyte Esterase 500 H Urine RBC 50-100 SEEN Urine WBC 25-50 SEEN Ur Squamous Epith Cells 0-5 SEEN Ur Transition Epith Cell 0 SEEN Urine Bacteria 1+ Urine Mucus 1+ Fld Polynuclear WBCs # 0.000 Fld Polynuclear WBCs % 0.0 Fluid Mononuclear WBCs 0.005 Fld Mononuclear WBCs % 100.0 CSF Appearance CLEAR CSF Color COLORLESS CSF WBC 0.005 CSF RBC 115 H CSF Cell Count Tube # 4 CSF Total Cell Counted 0.005 H CSF Comment May follow CSF Glucose CSF Total Protein CSF Cryptococcus Ag Rheumatoid Factor KLARISSA Screen c-ANCA Antibody p-ANCA Antibody GUILLE-1 Antibody SS-A/Ro IgG Antibody SS-B/La IgG Antibody Sm (Rico) Antibody CERTIFIED DIETARY MANAGER Antibody Scl-70 Scleroderma Ab Double Strand DNA Ab Anti-ss DNA IgG Ab Centromere B Antibody Miscellaneous Cytology Pending Miscellaneous Test POC Glucose 11/28/18 11/28/18 11/27/18 11:58 06:45 22:27 POC Glucose 151 H 123 H 228 H 11/27/18 16:59 POC Glucose 203 H Medical Necessity - Tobacco Use Smoking Status: Never smoker Tobacco Use: Non-smoker Assessment/Plan All Active Problems Acute encephalopathy (Acute) Diabetic keto-acidosis (Acute) Seizure disorder (Acute) Elevated troponin (Acute) Hypernatremia (Acute) Hyperglycemia (Acute) Community acquired pneumonia (Acute) Bilateral leg weakness (Acute) 73-year-old male with PMH HTN, DM, neuropathy who was admitted to [facility] in September 2018 after being found unresponsive, was found in DKA then, later was in the TCU for rehabilitation at the [facility] where he was discharged on 10/03/2018. Since then he has been having progressive pain in both the feet mitzy cially the toes has been using walker to ambulate and had been has been having progressive weakness in both legs, with weakness worsening over the past few weeks. MRI brain done during this admission did not show anything acute, MRI L- spine done on 11/17/2018 reported to show spinal stenosis at L3-L4, L4-L5 and L5- S1 secondary to disc disease and bony hypertrophy related to the left, MRI C- spine done during this admission reported to show mild to moderate bilateral neuroforaminal stenosis at C5-C6 and severe on the right at C6-C7 on the right primarily due to bony hypertrophy, mild spondylosis and no evidence of acute fractures. UA on admission was reported to be cloudy with LE 500, WBC 25?50, nitrite positive and urine culture reported to show gram-positive organisms and per hospitalist it is probably contamination. Per he never had seizures, has been put on Depakote by Dr. Kiran for unclear reasons. Impression B/L LE weakness Cervical/lumbar stenosis Neuropathy vs GBS variants Plan -EMG/NCS both LE- Right common peroneal motor response at the tibialis anterior demonstrated a normal distal latency with reduced amplitude. Right tibial motor response demonstrates prolonged distal latency with reduced amplitude and conduction velocity. Prolonged right tibial F wave. Left peroneal F wave was not obtained. H reflex absent bilaterally. Sural responses unobtainable. 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 -LP- WBCx-5, protein 86 (high), glucose 82 -Labs reviewed- Total CK 47, LFTs-AST/ALT-17/33, Diy6h-5.5, Vitamin [id number], TSH-2.95, ESR-6, CRP-0.5, RF-71 -Await KLARISSA/ANCA/SSa/SSb,SPEP with EDSON, UPEP with EDSON, anti GQ1 b antibody, anti GM 1 antibody and paraneoplastic antibodies -Rheumatology consult for high RF. -Repeat UA shows WBCs 25-50, bacteria +,LE 500. Urine culture sent -On Depakote -Trial of IVIG given the patient's clinical presentation, per patient's , patient has pain in the feet/legs along with weakness which started around middle of October to the extent that patient is unable to walk. S/E of IVIG discussed in detail with family and patient. IVIG 0.4 g/kg/day for 5 days for a total dose of 2 g/kg. -Trial Lyrica 50 mg PO BID for neuropathic pain. -Spine surgery consult -GI/DVT prophylaxis -Fall precautions -Further medical management per hospitalist team -Follow up with Neurology as outpatient in 6 weeks -Please call with questions if any -Thank you for allowing us to participate in patient's care and management
[2018-11-28] MEDS: Ceftriaxone 1 GM/50 ML BAG IV (17:01)
[2018-11-28 17:20] LABS: Bedside Glucose 166 mg/dL (70-110)
[2018-11-28 17:22] LABS: Anion Gap 5 (5-15); BUN 15 mg/dL (7-18); BUN/Creat Ratio 17.3 RATIO (10-20); Calcium,Total 9.2 mg/dL (8.5-10.1); Chloride 103 mmol/L (98-107); Creatinine, Serum 0.87 mg/dL (0.70-1.30); EST Glomerular Filtration Rate 92 mL/min (>60); Est Glom Filt Rate - Afr Amer 111 mL/min (>60); Glucose 171 mg/dL (74-106); Potassium 4.1 mmol/L (3.5-5.1); Sodium Level 137 mmol/L (136-145)
[2018-11-28] MEDS: Immune Globulin 20 gm Premixed Solution IV (18:47)
[2018-11-28] MEDS: Immune Globulin 5 GM Premixed Solution IV (20:52)
[2018-11-28] MEDS: 0.9% NaCl Peripheral Flush Adult/Peds IV (21:24)
[2018-11-28] MEDS: Pregabalin 50 MG Capsule PO (21:28)
[2018-11-29] VITALS (12 sets, daily range): BP systolic 134–166; BP diastolic 64–88; PULSE 91–106; RESP 15–18; TEMP 36.8–37.3; O2SAT 95–99
[2018-11-29 06:13] LABS: Anion Gap 6 (5-15); BUN 13 mg/dL (7-18); BUN/Creat Ratio 15.2 RATIO (10-20); Calcium,Total 9.2 mg/dL (8.5-10.1); Chloride 103 mmol/L (98-107); Creatinine, Serum 0.85 mg/dL (0.70-1.30); EST Glomerular Filtration Rate 94 mL/min (>60); Est Glom Filt Rate - Afr Amer 113 mL/min (>60); Estimated Creatinine Clearance 76.67 ml/min; Glucose 182 mg/dL (74-106); Potassium 3.7 mmol/L (3.5-5.1); Sodium Level 138 mmol/L (136-145)
[2018-11-29] MEDS: Insulin Lispro 100 UNIT/ML INSULN.PEN SQ ×4 (06:42→22:02)
[2018-11-29 07:20] LABS: Bedside Glucose 193 mg/dL (70-110)
[2018-11-29] MEDS: Lisinopril 20 MG Tablet PO (10:38)
[2018-11-29] MEDS: Glucerna Shake 120 ML LIQUID PO ×3 (10:38→17:31)
[2018-11-29] MEDS: Pioglitazone Hydrochloride 30 MG Tablet PO (10:38)
[2018-11-29] MEDS: Aspirin E.C. 81 MG Tablet PO (10:38)
[2018-11-29] MEDS: Divalproex Sodium 250 MG Tablet PO ×2 (10:39→22:09)
[2018-11-29] MEDS: Heparin Injection (Vial) 5,000 UNIT/ML VIAL 5000 UNIT SC ×2 (10:41→22:02)
[2018-11-29] MEDS: Ceftriaxone 1 GM/50 ML BAG IV (10:42)
[2018-11-29] MEDS: Pregabalin 50 MG Capsule PO ×2 (10:49→22:09)
[2018-11-29] MEDS: 0.9% NaCl Peripheral Flush Adult/Peds IV ×3 (10:49→19:31)
--- NOTE | 2018-11-29 11:16 | CASEMGMT ---
Addendum entered by Tashia Ritter 11/29/18 13:54: KARI faxed updates to [facility]. Tashia SANTANA Original Note: Per physician patient will need to be at [facility] for 4 more days to complete his 5 days of IVIG. SW will notify [facility]. A pre-cert will likely need to be re-obtained as current one will not be good for 4 more days. Tashia MARIN MSW
[2018-11-29 11:51] LABS: Bedside Glucose 241 mg/dL (70-110)
[2018-11-29 12:34] LABS: Pathologist Review Reviewed
--- NOTE | 2018-11-29 13:30 | NURSING ---
Sitter removed from the bedside.
[2018-11-29] MEDS: Acetaminophen 500 MG Tablet 1000 MG PO ×2 (15:05→22:09)
--- NOTE | 2018-11-29 15:52 | PCM.PN.HOSP ---
Patient Problems: Active and Suspected Problems Bilateral leg weakness (Acute) Subjective: Patient had owning yesterday evening. Patient also having visual and auditory hallucinations. Sitter is near the bedside since yesterday night. Discussed with a neurologist. Patient is on IVIG Patient seen more lethargic today . patient also frequently changes subjects and ideas during conversation And tangential thoughts. This patient has dementia. Vitals/I&O's: Vital Signs Temp Pulse Resp BP Pulse Ox 98.4 F 106 H 15 134/71 H 95 11/29/18 10:32 11/29/18 12:28 11/29/18 10:32 11/29/18 10:32 11/29/18 10:32 Oxygen Delivery Method Room Air Weight: 152 lb 1.903 oz Body Mass Index (BMI) 21.8 Intake and Output for Last 24 Hours 11/27/18 11/28/18 11/29/18 23:59 23:59 23:59 Intake Total 480 / 480 781 / 781 485 / 485 Output Total 950 / 950 725 / 725 300 / 300 Balance -470 / -470 56 / 56 185 / 185 General: Alert, Cooperative, Disoriented, Lethargic HEENT: Atraumatic, PERRLA, EOMI, Normocephalic Neck: Supple, No JVD, Negative Carotid Bruits Lungs: No rhonchi, No wheeze, No rales, Diminished Cardiovascular: Regular rate Abdomen: Bowel Sounds Present, Soft, Non Tender, Non-Distended Extremities: No edema, Capillary Refill Less than 3 Seconds Skin: No rashes, No breakdown Musculoskeletal: Arthritic Changes, Muscle Wasting, Tenderness - Tenderness to the left lower leg secondary to neuropathy. Neurological: - - Weakness of both lower extremity, 3/5. Psych/Mental Status: Flat Affect Microbiology Past 72 Hours 11/28/18 17:55 Interface Orders Urine Culture - Final Mixed Gram Positive Organisms 11/28/18 09:08 Csf, Spinal Fluid Gram Stain - Final 11/28/18 09:08 Csf, Spinal Fluid CSF Culture - Preliminary No growth in 24 hours. Final to follow. Laboratory Results 11/28/18 09:08: CSF Comment Reviewed 11/28/18 09:08: Miscellaneous Cytology SEE PATHOLOGY REPORT 11/28/18 16:06: Sodium 137, Potassium 4.1, Chloride 103, Carbon Dioxide 29.0, Anion Gap 5, BUN 15, Creatinine 0.87, Estim Creat Clear Calc 74.90, Est GFR (MDRD) Af Amer 111, Est GFR (MDRD) Non-Af 92, BUN/Creatinine Ratio 17.3, Glucose 171 H, Calcium 9.2 11/28/18 16:57: POC Glucose 166 H 11/29/18 05:25: Sodium 138, Potassium 3.7, Chloride 103, Carbon Dioxide 29.0, Anion Gap 6, BUN 13, Creatinine 0.85, Estim Creat Clear Calc 76.67, Est GFR (MDRD) Af Amer 113, Est GFR (MDRD) Non-Af 94, BUN/Creatinine Ratio 15.2, Glucose 182 H, Calcium 9.2 11/29/18 06:40: POC Glucose 193 H 11/29/18 11:48: POC Glucose 241 H Current Medications Acetaminophen (Tylenol) 1,000 mg PO Q8 [facility] Last Admin: 11/29/18 15:05 Dose: 1,000 mg Aspirin (Ecotrin) 81 mg PO DAILYCM [facility] Last Admin: 11/29/18 10:38 Dose: 81 mg Dextrose (D50w Syringe) 0 gm IV X1 PRN; Protocol PRN Reason: Hypoglycemia Divalproex Sodium (Depakote) 250 mg PO BID [facility] Last Admin: 11/29/18 10:39 Dose: 250 mg Glucagon () 1 mg IM .X1 PRN PRN Reason: Hypoglycemia Heparin Sodium (Porcine) (Heparin Na) 5,000 unit SC Q12 [facility] Last Admin: 11/29/18 10:41 Dose: 5,000 unit Hydralazine HCl (Apresoline Iv) 10 mg IV Q6H PRN PRN PRN Reason: SBP>180 mmhg Ibuprofen (Motrin) 600 mg PO Q8H PRN PRN PRN Reason: PAIN Last Admin: 11/26/18 10:30 Dose: 600 mg Insulin Glargine (Lantus (Bkc)) 15 units SC BID [facility] Last Admin: 11/29/18 10:39 Dose: 15 units Insulin Human Lispro (Humalog Kwikpen (Bkc)) 0 unit SQ ACHS [facility]; Protocol Last Admin: 11/29/18 11:53 Dose: 2 units Lisinopril (Zestril) 20 mg PO DAILY [facility] Last Admin: 11/29/18 10:38 Dose: 20 mg Nutritional Formula (Lactose Free) (Glucerna Shake) 120 ml PO 4X/DAY [facility] Last Admin: 11/29/18 15:06 Dose: 120 ml Pioglitazone HCl (Actos) 30 mg PO DAILY [facility] Last Admin: 11/29/18 10:38 Dose: 30 mg Pregabalin (Lyrica) 50 mg PO BID [facility] Last Admin: 11/29/18 10:49 Dose: 50 mg Quetiapine Fumarate (Seroquel) 12.5 mg PO QHS PRN PRN PRN Reason: insomnia Sodium Chloride () 5 - 15 ml IV UD PRN PRN Reason: SALINE FLUSH Last Admin: 11/29/18 11:54 Dose: 10 ml Medical Necessity - Tobacco Use Smoking Status: Never smoker Tobacco Use: Non-smoker Assessment/Plan All Active Problems Acute encephalopathy (Acute) Diabetic keto-acidosis (Acute) Seizure disorder (Acute) Elevated troponin (Acute) Hypernatremia (Acute) Hyperglycemia (Acute) Community acquired pneumonia (Acute) Bilateral leg weakness (Acute) The patient is a 73 year old M with a significant history of diabetes mellitus; hypertension; who presented to the emergency department with 2 weeks of progressively worsening bilateral lower extremity weakness and numbness. 1. Suspect metabolic encephalopathy Patient had EEG in September 2018 which was reported as abnormal due to mild generalized slowing. No epileptiform discharges were noticed. MRI C-spine reported as mild to moderate bilateral neuroforaminal stenosis at C5-6 and severe on the right at C6-7 on the right primarily due to bony hypertrophy Initial urine culture shows mixed gram-positive organism UTI ruled out. Repeat UA was done shows 25-50 cells. repeat urine culture showed mixed gram-positive organism sensitive a contaminant. Ceftriaxone was started yesterday as empiric and got 2 doses and then discontinued. 2. Orthostatic hypotension Patient blood pressure is stable 141/75. Heart rate in 90s. IV fluids discontinued 3. LE weakness MRI L spine was negative Discussed with Dr. Larose, you reviewed the nerve conduction study but was limited due to patient not tolerating the procedure but did not see any overt significant findings. CK normal MRI brain does not show acute intracranial abnormality. Patient was seen by Dr. Mckeon and discussed with him. He thinks it is subacute bilateral lower extremity weakness and common etiologies needs to be ruled out including demyelinating neuropathy like CIDP or GBS. He ordered autoimmune antibodies, serum electrophoresis AND immunofixation ANCA, KLARISSA. CSF fluid analysis shows 5 mononuclear WBC, total protein 86, glucose 82 with suspicion of albuminocytologic dissociation. 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 Patient is on IVIG, first dose is started on 11/28. 4. Dementia per family, patient has been well-kempt, even in long-term. now disheveled, unclear significance TSH 3.1 on 10/05/18 Folate 26. B12 1400. CK 47. DC aricept 5. DVT prophylaxis: Heparin Discussed with the patient's and daughter. Microbiology Past 72 Hours 11/28/18 17:55 Interface Orders Urine Culture - Final Mixed Gram Positive Organisms 11/28/18 09:08 Csf, Spinal Fluid Gram Stain - Final 11/28/18 09:08 Csf, Spinal Fluid CSF Culture - Preliminary No growth in 24 hours. Final to follow. Laboratory Results 11/28/18 09:08: CSF Comment Reviewed 11/28/18 09:08: Miscellaneous Cytology SEE PATHOLOGY REPORT 11/28/18 16:06: Sodium 137, Potassium 4.1, Chloride 103, Carbon Dioxide 29.0, Anion Gap 5, BUN 15, Creatinine 0.87, Estim Creat Clear Calc 74.90, Est GFR (MDRD) Af Amer 111, Est GFR (MDRD) Non-Af 92, BUN/Creatinine Ratio 17.3, Glucose 171 H, Calcium 9.2 11/28/18 16:57: POC Glucose 166 H 11/29/18 05:25: Sodium 138, Potassium 3.7, Chloride 103, Carbon Dioxide 29.0, Anion Gap 6, BUN 13, Creatinine 0.85, Estim Creat Clear Calc 76.67, Est GFR (MDRD) Af Amer 113, Est GFR (MDRD) Non-Af 94, BUN/Creatinine Ratio 15.2, Glucose 182 H, Calcium 9.2 11/29/18 06:40: POC Glucose 193 H 11/29/18 11:48: POC Glucose 241 H Clinical Impression(s) from Imaging Studies Brain CT 11/24/18 11:29 IMPRESSION: Chronic involutional changes of the brain. Brain MRI 11/24/18 16:52 IMPRESSION: No acute intracranial abnormality. Mild chronic microvascular ischemic changes. Cervical Spine MRI 11/26/18 16:08 IMPRESSION: No evidence for acute fractures fixation. Mild spondylosis Mild to moderate bilateral neuroforaminal stenosis at C5-6 and severe on the right at C6-7 on the right primarily due to bony hypertrophy Code Visit Inpatient E&M: 87655 Subs Hosp L3
--- NOTE | 2018-11-29 15:56 | PN_ITS ---
Patient Problems: Active and Suspected Problems Bilateral leg weakness (Acute) Subjective: Patient had owning yesterday evening. Patient also having visual and auditory hallucinations. Sitter is near the bedside since yesterday night. Discussed with a neurologist. Patient is on IVIG Patient seen more lethargic today . patient also frequently changes subjects and ideas during conversation And tangential thoughts. This patient has dementia. Vitals/I&O's: Vital Signs Temp Pulse Resp BP Pulse Ox 98.4 F 106 H 15 134/71 H 95 11/29/18 10:32 11/29/18 12:28 11/29/18 10:32 11/29/18 10:32 11/29/18 10:32 Oxygen Delivery Method Room Air Weight: 152 lb 1.903 oz Body Mass Index (BMI) 21.8 Intake and Output for Last 24 Hours 11/27/18 11/28/18 11/29/18 23:59 23:59 23:59 Intake Total 480 / 480 781 / 781 485 / 485 Output Total 950 / 950 725 / 725 300 / 300 Balance -470 / -470 56 / 56 185 / 185 General: Alert, Cooperative, Disoriented, Lethargic HEENT: Atraumatic, PERRLA, EOMI, Normocephalic Neck: Supple, No JVD, Negative Carotid Bruits Lungs: No rhonchi, No wheeze, No rales, Diminished Cardiovascular: Regular rate Abdomen: Bowel Sounds Present, Soft, Non Tender, Non-Distended Extremities: No edema, Capillary Refill Less than 3 Seconds Skin: No rashes, No breakdown Musculoskeletal: Arthritic Changes, Muscle Wasting, Tenderness - Tenderness to the left lower leg secondary to neuropathy. Neurological: - - Weakness of both lower extremity, 3/5. Psych/Mental Status: Flat Affect Microbiology Past 72 Hours 11/28/18 17:55 Interface Orders Urine Culture - Final Mixed Gram Positive Organisms 11/28/18 09:08 Csf, Spinal Fluid Gram Stain - Final 11/28/18 09:08 Csf, Spinal Fluid CSF Culture - Preliminary No growth in 24 hours. Final to follow. Laboratory Results 11/28/18 09:08: CSF Comment Reviewed 11/28/18 09:08: Miscellaneous Cytology SEE PATHOLOGY REPORT 11/28/18 16:06: Sodium 137, Potassium 4.1, Chloride 103, Carbon Dioxide 29.0, Anion Gap 5, BUN 15, Creatinine 0.87, Estim Creat Clear Calc 74.90, Est GFR (MDRD) Af Amer 111, Est GFR (MDRD) Non-Af 92, BUN/Creatinine Ratio 17.3, Glucose 171 H, Calcium 9.2 11/28/18 16:57: POC Glucose 166 H 11/29/18 05:25: Sodium 138, Potassium 3.7, Chloride 103, Carbon Dioxide 29.0, Anion Gap 6, BUN 13, Creatinine 0.85, Estim Creat Clear Calc 76.67, Est GFR (MDRD) Af Amer 113, Est GFR (MDRD) Non-Af 94, BUN/Creatinine Ratio 15.2, Glucose 182 H, Calcium 9.2 11/29/18 06:40: POC Glucose 193 H 11/29/18 11:48: POC Glucose 241 H Current Medications Acetaminophen (Tylenol) 1,000 mg PO Q8 [facility] Last Admin: 11/29/18 15:05 Dose: 1,000 mg Aspirin (Ecotrin) 81 mg PO DAILYCM [facility] Last Admin: 11/29/18 10:38 Dose: 81 mg Dextrose (D50w Syringe) 0 gm IV X1 PRN; Protocol PRN Reason: Hypoglycemia Divalproex Sodium (Depakote) 250 mg PO BID [facility] Last Admin: 11/29/18 10:39 Dose: 250 mg Glucagon () 1 mg IM .X1 PRN PRN Reason: Hypoglycemia Heparin Sodium (Porcine) (Heparin Na) 5,000 unit SC Q12 [facility] Last Admin: 11/29/18 10:41 Dose: 5,000 unit Hydralazine HCl (Apresoline Iv) 10 mg IV Q6H PRN PRN PRN Reason: SBP>180 mmhg Ibuprofen (Motrin) 600 mg PO Q8H PRN PRN PRN Reason: PAIN Last Admin: 11/26/18 10:30 Dose: 600 mg Insulin Glargine (Lantus (Bkc)) 15 units SC BID [facility] Last Admin: 11/29/18 10:39 Dose: 15 units Insulin Human Lispro (Humalog Kwikpen (Bkc)) 0 unit SQ ACHS [facility]; Protocol Last Admin: 11/29/18 11:53 Dose: 2 units Lisinopril (Zestril) 20 mg PO DAILY [facility] Last Admin: 11/29/18 10:38 Dose: 20 mg Nutritional Formula (Lactose Free) (Glucerna Shake) 120 ml PO 4X/DAY [facility] Last Admin: 11/29/18 15:06 Dose: 120 ml Pioglitazone HCl (Actos) 30 mg PO DAILY [facility] Last Admin: 11/29/18 10:38 Dose: 30 mg Pregabalin (Lyrica) 50 mg PO BID [facility] Last Admin: 11/29/18 10:49 Dose: 50 mg Quetiapine Fumarate (Seroquel) 12.5 mg PO QHS PRN PRN PRN Reason: insomnia Sodium Chloride () 5 - 15 ml IV UD PRN PRN Reason: SALINE FLUSH Last Admin: 11/29/18 11:54 Dose: 10 ml Medical Necessity - Tobacco Use Smoking Status: Never smoker Tobacco Use: Non-smoker Assessment/Plan All Active Problems Acute encephalopathy (Acute) Diabetic keto-acidosis (Acute) Seizure disorder (Acute) Elevated troponin (Acute) Hypernatremia (Acute) Hyperglycemia (Acute) Community acquired pneumonia (Acute) Bilateral leg weakness (Acute) The patient is a 73 year old M with a significant history of diabetes mellitus; hypertension; who presented to the emergency department with 2 weeks of progressively worsening bilateral lower extremity weakness and numbness. 1. Suspect metabolic encephalopathy * Patient had EEG in September 2018 which was reported as abnormal due to mild generalized slowing. No epileptiform discharges were noticed. * MRI C-spine reported as mild to moderate bilateral neuroforaminal stenosis at C5-6 and severe on the right at C6-7 on the right primarily due to bony hypertrophy * Initial urine culture shows mixed gram-positive organism UTI ruled out. Repeat UA was done shows 25-50 cells. repeat urine culture showed mixed gram- positive organism sensitive a contaminant. Ceftriaxone was started yesterday as empiric and got 2 doses and then discontinued. 2. Orthostatic hypotension * Patient blood pressure is stable 141/75. Heart rate in 90s. * IV fluids discontinued 3. LE weakness * MRI L spine was negative * Discussed with Dr. Larose, you reviewed the nerve conduction study but was limited due to patient not tolerating the procedure but did not see any overt significant findings. * CK normal * MRI brain does not show acute intracranial abnormality. * Patient was seen by Dr. Mckeon and discussed with him. He thinks it is subacute bilateral lower extremity weakness and common etiologies needs to be ruled out including demyelinating neuropathy like CIDP or GBS. He ordered autoimmune antibodies, serum electrophoresis AND immunofixation ANCA, KLARISSA. * CSF fluid analysis shows 5 mononuclear WBC, total protein 86, glucose 82 with suspicion of albuminocytologic dissociation. 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 * Patient is on IVIG, first dose is started on 11/28. 4. Dementia * per family, patient has been well-kempt, even in senior living. * now disheveled, unclear significance * TSH 3.1 on 10/05/18 * Folate 26. B12 1400. CK 47. * DC aricept 5. DVT prophylaxis: Heparin Discussed with the patient's and daughter. Microbiology Past 72 Hours 11/28/18 17:55 Interface Orders Urine Culture - Final Mixed Gram Positive Organisms 11/28/18 09:08 Csf, Spinal Fluid Gram Stain - Final 11/28/18 09:08 Csf, Spinal Fluid CSF Culture - Preliminary No growth in 24 hours. Final to follow. Laboratory Results 11/28/18 09:08: CSF Comment Reviewed 11/28/18 09:08: Miscellaneous Cytology SEE PATHOLOGY REPORT 11/28/18 16:06: Sodium 137, Potassium 4.1, Chloride 103, Carbon Dioxide 29.0, Anion Gap 5, BUN 15, Creatinine 0.87, Estim Creat Clear Calc 74.90, Est GFR (MDRD) Af Amer 111, Est GFR (MDRD) Non-Af 92, BUN/Creatinine Ratio 17.3, Glucose 171 H, Calcium 9.2 11/28/18 16:57: POC Glucose 166 H 11/29/18 05:25: Sodium 138, Potassium 3.7, Chloride 103, Carbon Dioxide 29.0, Anion Gap 6, BUN 13, Creatinine 0.85, Estim Creat Clear Calc 76.67, Est GFR (MDRD) Af Amer 113, Est GFR (MDRD) Non-Af 94, BUN/Creatinine Ratio 15.2, Glucose 182 H, Calcium 9.2 11/29/18 06:40: POC Glucose 193 H 11/29/18 11:48: POC Glucose 241 H Clinical Impression(s) from Imaging Studies Brain CT 11/24/18 11:29 IMPRESSION: Chronic involutional changes of the brain. Brain MRI 11/24/18 16:52 IMPRESSION: No acute intracranial abnormality. Mild chronic microvascular ischemic changes. Cervical Spine MRI 11/26/18 16:08 IMPRESSION: No evidence for acute fractures fixation. Mild spondylosis Mild to moderate bilateral neuroforaminal stenosis at C5-6 and severe on the right at C6-7 on the right primarily due to bony hypertrophy Code Visit Inpatient E&M: 89930 Subs Hosp L3
[2018-11-29 16:20] LABS: Bedside Glucose 284 mg/dL (70-110)
[2018-11-29] MEDS: Immune Globulin 10 gm Premixed Solution IV ×2 (16:38→18:19)
[2018-11-29] MEDS: Immune Globulin 5 GM Premixed Solution IV (19:06)
[2018-11-29 22:55] LABS: Bedside Glucose 363 mg/dL (70-110)
[2018-11-30] VITALS (14 sets, daily range): BP systolic 98–167; BP diastolic 61–84; PULSE 78–120; RESP 14–18; TEMP 36.6–37.2; O2SAT 95–100
[2018-11-30] MEDS: Insulin Lispro 100 UNIT/ML INSULN.PEN SQ ×4 (06:53→21:49)
[2018-11-30 07:05] LABS: Bedside Glucose 212 mg/dL (70-110)
[2018-11-30] MEDS: Acetaminophen 500 MG Tablet 1000 MG PO ×3 (09:14→21:51)
[2018-11-30] MEDS: Pioglitazone Hydrochloride 30 MG Tablet PO (09:16)
[2018-11-30] MEDS: Divalproex Sodium 250 MG Tablet PO ×2 (09:16→21:48)
[2018-11-30] MEDS: Lisinopril 20 MG Tablet PO (09:16)
[2018-11-30] MEDS: Aspirin E.C. 81 MG Tablet PO (09:16)
[2018-11-30] MEDS: Heparin Injection (Vial) 5,000 UNIT/ML VIAL 5000 UNIT SC ×2 (09:17→21:49)
[2018-11-30] MEDS: Glucerna Shake 120 ML LIQUID PO ×3 (09:20→18:34)
--- NOTE | 2018-11-30 09:22 | CASEMGMT ---
KARI called [facility] and left a voice mail requesting a return call. Updates were sent yesterday in the hopes a pre-cert could be obtained in the event patient is ready on Monday. Await return call. Tashia MARIN MSW
[2018-11-30] MEDS: Pregabalin 50 MG Capsule PO ×2 (09:23→21:51)
[2018-11-30 11:31] LABS: Bedside Glucose 305 mg/dL (70-110)
--- NOTE | 2018-11-30 12:56 | PCM.PN.NEU ---
Patient Problems: Active and Suspected Problems Bilateral leg weakness (Acute) Subjective: No issues overnight. S/P 2 doses of IVIG, per patient he feels the pain in the feet and legs is slightly better. But still feels soreness. Denies any HAYNES, has tolerated IVIG well. - Physical Exam General: Alert HEENT: Normocephalic Neck: Supple Lungs: Normal air movement Cardiovascular: Normal S1, Normal S2 Abdomen: Bowel Sounds Present Extremities: No cyanosis Neurological: - - consious, alert, AoAx3, CN 2-12 grossly intact, power 5/5 both UE, 1/5 Both LE, plantars B/L flexor, Reflexes + B/L B/S/T, areflexia B/L K/A, no sensory loss, no cerebellar signs, gait deferred. Psych/Mental Status: Normal Affect Vital Signs Temp Pulse Resp BP Pulse Ox 98.2 F 98 14 131/84 H 95 11/30/18 09:02 11/30/18 09:02 11/30/18 09:02 11/30/18 09:02 11/30/18 09:02 Oxygen Delivery Method Room Air Weight: 69 kg Body Mass Index (BMI) 21.8 Intake and Output for Last 24 Hours 11/28/18 11/29/18 11/30/18 23:59 23:59 23:59 Intake Total 781 / 781 1261 / 1261 400 / 400 Output Total 725 / 725 575 / 575 275 / 275 Balance 56 / 56 686 / 686 125 / 125 Microbiology Past 72 Hours 11/28/18 09:08 Gram Stain - Final Csf, Spinal Fluid CSF Culture - Preliminary No growth in 24 hours. Final to follow. 11/28/18 17:55 Urine Culture - Final Interface Orders Mixed Gram Positive Organisms Laboratory Tests Past 24 Hrs 11/27/18 11/28/18 16:20 09:08 Ur Total Protein 24 Hr Pending Urine Total Protein Pending Urine Albumin Pending U [id number] Pending U [id number] Pending U Beta Globulin Pending U Gamma Globulin Pending Miscellaneous Cytology SEE PATHOLOGY REPORT POC Glucose 11/30/18 11/30/18 11/29/18 11:20 06:51 22:00 POC Glucose 305 H 212 H 363 H 11/29/18 16:06 POC Glucose 284 H Medical Necessity - Tobacco Use Smoking Status: Never smoker Tobacco Use: Non-smoker Assessment/Plan All Active Problems Acute encephalopathy (Acute) Diabetic keto-acidosis (Acute) Seizure disorder (Acute) Elevated troponin (Acute) Hypernatremia (Acute) Hyperglycemia (Acute) Community acquired pneumonia (Acute) Bilateral leg weakness (Acute) 73-year-old male with PMH HTN, DM, neuropathy who was admitted to [facility] in September 2018 after being found unresponsive, was found in DKA then, later was in the TCU for rehabilitation at the [facility] where he was discharged on 10/03/2018. Since then he has been having progressive pain in both the feet especially the toes has been using walker to ambulate and had been has been having progressive weakness in both legs, with weakness worsening over the past few weeks. MRI brain done during this admission did not show anything acute, MRI L-spine done on 11/17/2018 reported to show spinal stenosis at L3-L4, L4-L5 and L5-S1 secondary to disc disease and bony hypertrophy related to the left, MRI C-spine done during this admission reported to show mild to moderate bilateral neuroforaminal stenosis at C5-C6 and severe on the right at C6-C7 on the right primarily due to bony hypertrophy, mild spondylosis and no evidence of acute fractures. UA on admission was reported to be cloudy with LE 500, WBC 25?50, nitrite positive and urine culture reported to show gram-positive organisms and per hospitalist it is probably contamination. Per he never had seizures, has been put on Depakote by Dr. Kiran for unclear reasons. Impression B/L LE weakness Cervical/lumbar stenosis Neuropathy vs GBS variants Plan -EMG/NCS both LE- Right common peroneal motor response at the tibialis anterior demonstrated a normal distal latency with reduced amplitude. Right tibial motor response demonstrates prolonged distal latency with reduced amplitude and conduction velocity. Prolonged right tibial F wave. Left peroneal F wave was not obtained. H reflex absent bilaterally. Sural responses unobtainable. 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 -LP- WBCx-5, protein 86 (high), glucose 82 -Labs reviewed- Total CK 47, LFTs-AST/ALT-17/33, Bin5c-7.5, Vitamin [id number], TSH-2.95, ESR-6, CRP-0.5, RF-71 -Await KLARISSA/ANCA/SSa/SSb,SPEP with EDSON, UPEP with EDSON, anti GQ1 b antibody, anti GM 1 antibody and paraneoplastic antibodies -Rheumatology consult for high RF. -Repeat UA shows WBCs 25-50, bacteria +,LE 500. Urine culture mixed gram positive organisms, likely contamination -On Depakote -Trial of IVIG given the patient's clinical presentation, s/p 2 doses, tolerating medication well, per patient's , patient has pain in the feet/legs along with weakness which started around middle of October to the extent that patient is unable to walk. S/E of IVIG discussed in detail with family and patient. IVIG 0.4 g/kg/day for 5 days for a total dose of 2 g/kg. -Trial Lyrica 50 mg PO BID for neuropathic pain. -Spine surgery consult -GI/DVT prophylaxis -Fall precautions -Further medical management per hospitalist team -Follow up with Neurology as outpatient in 6 weeks -Please call with questions if any -Thank you for allowing us to participate in patient's care and management
--- NOTE | 2018-11-30 12:59 | PN.NEURO_ITS ---
Patient Problems: Active and Suspected Problems Bilateral leg weakness (Acute) Subjective: No issues overnight. S/P 2 doses of IVIG, per patient he feels the pain in the feet and legs is slightly better. But still feels soreness. Denies any HAYNES, has tolerated IVIG well. - Physical Exam General: Alert HEENT: Normocephalic Neck: Supple Lungs: Normal air movement Cardiovascular: Normal S1, Normal S2 Abdomen: Bowel Sounds Present Extremities: No cyanosis Neurological: - - consious, alert, AoAx3, CN 2-12 grossly intact, power 5/5 both UE, 1/5 Both LE, plantars B/L flexor, Reflexes + B/L B/S/T, areflexia B/L K/A, no sensory loss, no cerebellar signs, gait deferred. Psych/Mental Status: Normal Affect Vital Signs Temp Pulse Resp BP Pulse Ox 98.2 F 98 14 131/84 H 95 11/30/18 09:02 11/30/18 09:02 11/30/18 09:02 11/30/18 09:02 11/30/18 09:02 Oxygen Delivery Method Room Air Weight: 69 kg Body Mass Index (BMI) 21.8 Intake and Output for Last 24 Hours 11/28/18 11/29/18 11/30/18 23:59 23:59 23:59 Intake Total 781 / 781 1261 / 1261 400 / 400 Output Total 725 / 725 575 / 575 275 / 275 Balance 56 / 56 686 / 686 125 / 125 Microbiology Past 72 Hours 11/28/18 09:08 Gram Stain - Final Csf, Spinal Fluid CSF Culture - Preliminary No growth in 24 hours. Final to follow. 11/28/18 17:55 Urine Culture - Final Interface Orders Mixed Gram Positive Organisms Laboratory Tests Past 24 Hrs 11/27/18 11/28/18 16:20 09:08 Ur Total Protein 24 Hr Pending Urine Total Protein Pending Urine Albumin Pending U Phben-5-Rqfqhmco Pending U Xvyjg-5-Iqsvhkbt Pending U Beta Globulin Pending U Gamma Globulin Pending Miscellaneous Cytology SEE PATHOLOGY REPORT POC Glucose 11/30/18 11/30/18 11/29/18 11:20 06:51 22:00 POC Glucose 305 H 212 H 363 H 11/29/18 16:06 POC Glucose 284 H Medical Necessity - Tobacco Use Smoking Status: Never smoker Tobacco Use: Non-smoker Assessment/Plan All Active Problems Acute encephalopathy (Acute) Diabetic keto-acidosis (Acute) Seizure disorder (Acute) Elevated troponin (Acute) Hypernatremia (Acute) Hyperglycemia (Acute) Community acquired pneumonia (Acute) Bilateral leg weakness (Acute) 73-year-old male with PMH HTN, DM, neuropathy who was admitted to [facility] in September 2018 after being found unresponsive, was found in DKA then, later was in the TCU for rehabilitation at the [facility] where he was discharged on 10/03/2018. Since then he has been having progressive pain in both the feet especially the toes has been using walker to ambulate and had been has been having progressive weakness in both legs, with weakness worsening over the past few weeks. MRI brain done during this admission did not show anything acute, MRI L-spine done on 11/17/2018 reported to show spinal stenosis at L3-L4, L4-L5 and L5-S1 secondary to disc disease and bony hypertrophy related to the left, MRI C-spine done during this admission reported to show mild to moderate bilateral neuroforaminal stenosis at C5-C6 and severe on the right at C6-C7 on the right primarily due to bony hypertrophy, mild spondylosis and no evidence of acute fractures. UA on admission was reported to be cloudy with LE 500, WBC 25?50, nitrite positive and urine culture reported to show gram-positive organisms and per hospitalist it is probably contamination. Per he never had seizures, has been put on Depakote by Dr. Kiran for unclear reasons. Impression B/L LE weakness Cervical/lumbar stenosis Neuropathy vs GBS variants Plan -EMG/NCS both LE- Right common peroneal motor response at the tibialis anterior demonstrated a normal distal latency with reduced amplitude. Right tibial motor response demonstrates prolonged distal latency with reduced amplitude and conduction velocity. Prolonged right tibial F wave. Left peroneal F wave was not obtained. H reflex absent bilaterally. Sural responses unobtainable. 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 -LP- WBCx-5, protein 86 (high), glucose 82 -Labs reviewed- Total CK 47, LFTs-AST/ALT-17/33, Gfx4r-8.5, Vitamin F97-1419, TSH-2.95, ESR-6, CRP-0.5, RF-71 -Await KLARISSA/ANCA/SSa/SSb,SPEP with EDSON, UPEP with EDSON, anti GQ1 b antibody, anti GM 1 antibody and paraneoplastic antibodies -Rheumatology consult for high RF. -Repeat UA shows WBCs 25-50, bacteria +,LE 500. Urine culture mixed gram positive organisms, likely contamination -On Depakote -Trial of IVIG given the patient's clinical presentation, s/p 2 doses, tolerating medication well, per patient's , patient has pain in the feet/legs along with weakness which started around middle of October to the extent that patient is unable to walk. S/E of IVIG discussed in detail with family and patient. IVIG 0.4 g/kg/day for 5 days for a total dose of 2 g/kg. -Trial Lyrica 50 mg PO BID for neuropathic pain. -Spine surgery consult -GI/DVT prophylaxis -Fall precautions -Further medical management per hospitalist team -Follow up with Neurology as outpatient in 6 weeks -Please call with questions if any -Thank you for allowing us to participate in patient's care and management
[2018-11-30 13:18] LABS: ANTINUCLEAR ANTIBODIES DIRECT Negative (Negative)
[2018-11-30 14:06] LABS: Cryptococcus Antigen CSF Negative (Negative)
--- NOTE | 2018-11-30 14:50 | PCM.PN.HOSP ---
Patient Problems: Active and Suspected Problems Bilateral leg weakness (Acute) Subjective: Patient looks more awake and alert today although his level of responsiveness and alertness varies during the day. Patient is on IVIG therapy Vitals/I&O's: Vital Signs Temp Pulse Resp BP Pulse Ox 98.2 F 98 14 131/84 H 95 11/30/18 09:02 11/30/18 09:02 11/30/18 09:02 11/30/18 09:02 11/30/18 09:02 Oxygen Delivery Method Room Air Weight: 152 lb 1.903 oz Body Mass Index (BMI) 21.8 Intake and Output for Last 24 Hours 11/28/18 11/29/18 11/30/18 23:59 23:59 23:59 Intake Total 781 / 781 1261 / 1261 400 / 400 Output Total 725 / 725 575 / 575 275 / 275 Balance 56 / 56 686 / 686 125 / 125 General: Alert, Oriented x3, Cooperative, Lethargic HEENT: Atraumatic, PERRLA, EOMI, Normocephalic Neck: Supple, No JVD, Negative Carotid Bruits Lungs: No rhonchi, No wheeze, No rales, Diminished Cardiovascular: Regular rate, Regular Rhythm, Normal S1, Normal S2, No murmurs Abdomen: Bowel Sounds Present, Non Tender, Non-Distended Extremities: No edema, Capillary Refill Less than 3 Seconds Skin: No rashes Musculoskeletal: Arthritic Changes, Muscle Wasting, Tenderness - Tenderness to both lower legs Neurological: Cranial nerves II-XII grossly intact, - - Areflexia of lower extremities. Weakness of both lower extremities power 3/5 Psych/Mental Status: Flat Affect Microbiology Past 72 Hours 11/28/18 09:08 Csf, Spinal Fluid Gram Stain - Final 11/28/18 09:08 Csf, Spinal Fluid CSF Culture - Preliminary No growth in 24 hours. Final to follow. 11/28/18 17:55 Interface Orders Urine Culture - Final Mixed Gram Positive Organisms Laboratory Results 11/27/18 16:20: Ur Total Protein 24 Hr Pending, Urine Total Protein Pending, Urine Albumin Pending, U Hhttl-4-Iindjxej Pending, U Zcanc-1-Telewxur Pending, U Beta Globulin Pending, U Gamma Globulin Pending 11/27/18 21:40: KLARISSA Screen Negative 11/28/18 09:08: Miscellaneous Cytology SEE PATHOLOGY REPORT 11/29/18 16:06: POC Glucose 284 H 11/29/18 22:00: POC Glucose 363 H 11/30/18 06:51: POC Glucose 212 H 11/30/18 11:20: POC Glucose 305 H Current Medications Acetaminophen (Tylenol) 1,000 mg PO Q8 [facility] Last Admin: 11/30/18 09:14 Dose: 1,000 mg Aspirin (Ecotrin) 81 mg PO DAILYCM [facility] Last Admin: 11/30/18 09:16 Dose: 81 mg Dextrose (D50w Syringe) 0 gm IV X1 PRN; Protocol PRN Reason: Hypoglycemia Divalproex Sodium (Depakote) 250 mg PO BID [facility] Last Admin: 11/30/18 09:16 Dose: 250 mg Glucagon () 1 mg IM .X1 PRN PRN Reason: Hypoglycemia Heparin Sodium (Porcine) (Heparin Na) 5,000 unit SC Q12 [facility] Last Admin: 11/30/18 09:17 Dose: 5,000 unit Hydralazine HCl (Apresoline Iv) 10 mg IV Q6H PRN PRN PRN Reason: SBP>180 mmhg Ibuprofen (Motrin) 600 mg PO Q8H PRN PRN PRN Reason: PAIN Last Admin: 11/26/18 10:30 Dose: 600 mg Insulin Glargine (Lantus (Bkc)) 15 units SC BID [facility] Last Admin: 11/30/18 09:18 Dose: 15 units Insulin Human Lispro (Humalog Kwikpen (Bkc)) 0 unit SQ ACHS [facility]; Protocol Last Admin: 11/30/18 12:33 Dose: 3 units Lisinopril (Zestril) 20 mg PO DAILY [facility] Last Admin: 11/30/18 09:16 Dose: 20 mg Nutritional Formula (Lactose Free) (Glucerna Shake) 120 ml PO 4X/DAY [facility] Last Admin: 11/30/18 09:20 Dose: 120 ml Pioglitazone HCl (Actos) 30 mg PO DAILY [facility] Last Admin: 11/30/18 09:16 Dose: 30 mg Pregabalin (Lyrica) 50 mg PO BID [facility] Last Admin: 11/30/18 09:23 Dose: 50 mg Quetiapine Fumarate (Seroquel) 12.5 mg PO QHS PRN PRN PRN Reason: insomnia Sodium Chloride () 5 - 15 ml IV UD PRN PRN Reason: SALINE FLUSH Last Admin: 11/29/18 19:31 Dose: 10 ml Medical Necessity - Tobacco Use Smoking Status: Never smoker Tobacco Use: Non-smoker Assessment/Plan All Active Problems Acute encephalopathy (Acute) Diabetic keto-acidosis (Acute) Seizure disorder (Acute) Elevated troponin (Acute) Hypernatremia (Acute) Hyperglycemia (Acute) Community acquired pneumonia (Acute) Bilateral leg weakness (Acute) The patient is a 73 year old M with a significant history of diabetes mellitus; hypertension; who presented to the emergency department with 2 weeks of progressively worsening bilateral lower extremity weakness and numbness. 1. Suspect metabolic encephalopathy Patient had EEG in September 2018 which was reported as abnormal due to mild generalized slowing. No epileptiform discharges were noticed. MRI C-spine reported as mild to moderate bilateral neuroforaminal stenosis at C5-6 and severe on the right at C6-7 on the right primarily due to bony hypertrophy Initial urine culture shows mixed gram-positive organism UTI ruled out. Repeat UA was done shows 25-50 cells. repeat urine culture showed mixed gram-positive organism sensitive a contaminant. Ceftriaxone was started yesterday as empiric and got 2 doses and then discontinued. 2. Orthostatic hypotension Patient blood pressure is stable 141/75. Heart rate in 90s. IV fluids discontinued 3. LE weakness MRI L spine was negative Discussed with Dr. Larose, you reviewed the nerve conduction study but was limited due to patient not tolerating the procedure but did not see any overt significant findings. CK normal MRI brain does not show acute intracranial abnormality. Patient was seen by Dr. Mckeon and discussed with him. He thinks it is subacute bilateral lower extremity weakness and common etiologies needs to be ruled out including demyelinating neuropathy like CIDP or GBS. He ordered autoimmune antibodies, serum electrophoresis AND immunofixation ANCA, KLARISSA. CSF fluid analysis shows 5 mononuclear WBC, total protein 86, glucose 82 with suspicion of albuminocytologic dissociation. 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 Patient is on IVIG, first dose was started on 11/28. Today the third day. 4. Dementia per family, patient has been well-kempt, even in detention. now disheveled, unclear significance TSH 3.1 on 10/05/18 Folate 26. B12 1400. CK 47. DC aricept 5. DVT prophylaxis: Heparin Discussed with the patient's and daughter. Summary: 23-year-old gentleman was admitted with 2 weeks of progressively worsening bilateral lower extremity weakness and numbness. He was transferred to PCU from third floor for decreased responsiveness and altered mental status. Patient was seen by Mike, LP autoimmune antibodies, EMG and MRI brain was done. Overall it seems patient has subacute demyelinating neuropathy for which she is on IVIG. His third day. Overall, patient will need repeat precertification for going to SNF that will probably happen after Monday. Microbiology Past 72 Hours 11/28/18 17:55 Interface Orders Urine Culture - Final Mixed Gram Positive Organisms 11/28/18 09:08 Csf, Spinal Fluid Gram Stain - Final 11/28/18 09:08 Csf, Spinal Fluid CSF Culture - Preliminary No growth in 24 hours. Final to follow. Laboratory Results 11/28/18 09:08: CSF Comment Reviewed 11/28/18 09:08: Miscellaneous Cytology SEE PATHOLOGY REPORT 11/28/18 16:06: Sodium 137, Potassium 4.1, Chloride 103, Carbon Dioxide 29.0, Anion Gap 5, BUN 15, Creatinine 0.87, Estim Creat Clear Calc 74.90, Est GFR (MDRD) Af Amer 111, Est GFR (MDRD) Non-Af 92, BUN/Creatinine Ratio 17.3, Glucose 171 H, Calcium 9.2 11/28/18 16:57: POC Glucose 166 H 11/29/18 05:25: Sodium 138, Potassium 3.7, Chloride 103, Carbon Dioxide 29.0, Anion Gap 6, BUN 13, Creatinine 0.85, Estim Creat Clear Calc 76.67, Est GFR (MDRD) Af Amer 113, Est GFR (MDRD) Non-Af 94, BUN/Creatinine Ratio 15.2, Glucose 182 H, Calcium 9.2 11/29/18 06:40: POC Glucose 193 H 11/29/18 11:48: POC Glucose 241 H Clinical Impression(s) from Imaging Studies Brain CT 11/24/18 11:29 IMPRESSION: Chronic involutional changes of the brain. Brain MRI 11/24/18 16:52 IMPRESSION: No acute intracranial abnormality. Mild chronic microvascular ischemic changes. Cervical Spine MRI 11/26/18 16:08 IMPRESSION: No evidence for acute fractures fixation. Mild spondylosis Mild to moderate bilateral neuroforaminal stenosis at C5-6 and severe on the right at C6-7 on the right primarily due to bony hypertrophy Code Visit Inpatient E&M: 95133 Subs Hosp L2
--- NOTE | 2018-11-30 14:57 | PN_ITS ---
Patient Problems: Active and Suspected Problems Bilateral leg weakness (Acute) Subjective: Patient looks more awake and alert today although his level of responsiveness and alertness varies during the day. Patient is on IVIG therapy Vitals/I&O's: Vital Signs Temp Pulse Resp BP Pulse Ox 98.2 F 98 14 131/84 H 95 11/30/18 09:02 11/30/18 09:02 11/30/18 09:02 11/30/18 09:02 11/30/18 09:02 Oxygen Delivery Method Room Air Weight: 152 lb 1.903 oz Body Mass Index (BMI) 21.8 Intake and Output for Last 24 Hours 11/28/18 11/29/18 11/30/18 23:59 23:59 23:59 Intake Total 781 / 781 1261 / 1261 400 / 400 Output Total 725 / 725 575 / 575 275 / 275 Balance 56 / 56 686 / 686 125 / 125 General: Alert, Oriented x3, Cooperative, Lethargic HEENT: Atraumatic, PERRLA, EOMI, Normocephalic Neck: Supple, No JVD, Negative Carotid Bruits Lungs: No rhonchi, No wheeze, No rales, Diminished Cardiovascular: Regular rate, Regular Rhythm, Normal S1, Normal S2, No murmurs Abdomen: Bowel Sounds Present, Non Tender, Non-Distended Extremities: No edema, Capillary Refill Less than 3 Seconds Skin: No rashes Musculoskeletal: Arthritic Changes, Muscle Wasting, Tenderness - Tenderness to both lower legs Neurological: Cranial nerves II-XII grossly intact, - - Areflexia of lower extremities. Weakness of both lower extremities power 3/5 Psych/Mental Status: Flat Affect Microbiology Past 72 Hours 11/28/18 09:08 Csf, Spinal Fluid Gram Stain - Final 11/28/18 09:08 Csf, Spinal Fluid CSF Culture - Preliminary No growth in 24 hours. Final to follow. 11/28/18 17:55 Interface Orders Urine Culture - Final Mixed Gram Positive Organisms Laboratory Results 11/27/18 16:20: Ur Total Protein 24 Hr Pending, Urine Total Protein Pending, Urine Albumin Pending, U Iceix-0-Fmlmbiha Pending, U Esfqd-4-Edqbykqq Pending, U Beta Globulin Pending, U Gamma Globulin Pending 11/27/18 21:40: KLARISSA Screen Negative 11/28/18 09:08: Miscellaneous Cytology SEE PATHOLOGY REPORT 11/29/18 16:06: POC Glucose 284 H 11/29/18 22:00: POC Glucose 363 H 11/30/18 06:51: POC Glucose 212 H 11/30/18 11:20: POC Glucose 305 H Current Medications Acetaminophen (Tylenol) 1,000 mg PO Q8 [facility] Last Admin: 11/30/18 09:14 Dose: 1,000 mg Aspirin (Ecotrin) 81 mg PO DAILYCM [facility] Last Admin: 11/30/18 09:16 Dose: 81 mg Dextrose (D50w Syringe) 0 gm IV X1 PRN; Protocol PRN Reason: Hypoglycemia Divalproex Sodium (Depakote) 250 mg PO BID [facility] Last Admin: 11/30/18 09:16 Dose: 250 mg Glucagon () 1 mg IM .X1 PRN PRN Reason: Hypoglycemia Heparin Sodium (Porcine) (Heparin Na) 5,000 unit SC Q12 [facility] Last Admin: 11/30/18 09:17 Dose: 5,000 unit Hydralazine HCl (Apresoline Iv) 10 mg IV Q6H PRN PRN PRN Reason: SBP>180 mmhg Ibuprofen (Motrin) 600 mg PO Q8H PRN PRN PRN Reason: PAIN Last Admin: 11/26/18 10:30 Dose: 600 mg Insulin Glargine (Lantus (Bkc)) 15 units SC BID [facility] Last Admin: 11/30/18 09:18 Dose: 15 units Insulin Human Lispro (Humalog Kwikpen (Bkc)) 0 unit SQ ACHS [facility]; Protocol Last Admin: 11/30/18 12:33 Dose: 3 units Lisinopril (Zestril) 20 mg PO DAILY [facility] Last Admin: 11/30/18 09:16 Dose: 20 mg Nutritional Formula (Lactose Free) (Glucerna Shake) 120 ml PO 4X/DAY [facility] Last Admin: 11/30/18 09:20 Dose: 120 ml Pioglitazone HCl (Actos) 30 mg PO DAILY [facility] Last Admin: 11/30/18 09:16 Dose: 30 mg Pregabalin (Lyrica) 50 mg PO BID [facility] Last Admin: 11/30/18 09:23 Dose: 50 mg Quetiapine Fumarate (Seroquel) 12.5 mg PO QHS PRN PRN PRN Reason: insomnia Sodium Chloride () 5 - 15 ml IV UD PRN PRN Reason: SALINE FLUSH Last Admin: 11/29/18 19:31 Dose: 10 ml Medical Necessity - Tobacco Use Smoking Status: Never smoker Tobacco Use: Non-smoker Assessment/Plan All Active Problems Acute encephalopathy (Acute) Diabetic keto-acidosis (Acute) Seizure disorder (Acute) Elevated troponin (Acute) Hypernatremia (Acute) Hyperglycemia (Acute) Community acquired pneumonia (Acute) Bilateral leg weakness (Acute) The patient is a 73 year old M with a significant history of diabetes mellitus; hypertension; who presented to the emergency department with 2 weeks of progressively worsening bilateral lower extremity weakness and numbness. 1. Suspect metabolic encephalopathy * Patient had EEG in September 2018 which was reported as abnormal due to mild generalized slowing. No epileptiform discharges were noticed. * MRI C-spine reported as mild to moderate bilateral neuroforaminal stenosis at C5-6 and severe on the right at C6-7 on the right primarily due to bony hyp ertrophy * Initial urine culture shows mixed gram-positive organism UTI ruled out. Repeat UA was done shows 25-50 cells. repeat urine culture showed mixed gram- positive organism sensitive a contaminant. Ceftriaxone was started yesterday as empiric and got 2 doses and then discontinued. 2. Orthostatic hypotension * Patient blood pressure is stable 141/75. Heart rate in 90s. * IV fluids discontinued 3. LE weakness * MRI L spine was negative * Discussed with Dr. Larose, you reviewed the nerve conduction study but was limited due to patient not tolerating the procedure but did not see any overt significant findings. * CK normal * MRI brain does not show acute intracranial abnormality. * Patient was seen by Dr. Mckeon and discussed with him. He thinks it is subacute bilateral lower extremity weakness and common etiologies needs to be ruled out including demyelinating neuropathy like CIDP or GBS. He ordered autoimmune antibodies, serum electrophoresis AND immunofixation ANCA, KLARISSA. * CSF fluid analysis shows 5 mononuclear WBC, total protein 86, glucose 82 with suspicion of albuminocytologic dissociation. 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 * Patient is on IVIG, first dose was started on 11/28. Today the third day. 4. Dementia * per family, patient has been well-kempt, even in intermediate. * now disheveled, unclear significance * TSH 3.1 on 10/05/18 * Folate 26. B12 1400. CK 47. * DC aricept 5. DVT prophylaxis: Heparin Discussed with the patient's and daughter. Summary: 23-year-old gentleman was admitted with 2 weeks of progres sively worsening bilateral lower extremity weakness and numbness. He was transferred to PCU from third floor for decreased responsiveness and altered mental status. Patient was seen by Mike, LP autoimmune antibodies, EMG and MRI brain was done. Overall it seems patient has subacute demyelinating neuropathy for which she is on IVIG. His third day. Overall, patient will need repeat precertification for going to SNF that will probably happen after Monday. Microbiology Past 72 Hours 11/28/18 17:55 Interface Orders Urine Culture - Final Mixed Gram Positive Organisms 11/28/18 09:08 Csf, Spinal Fluid Gram Stain - Final 11/28/18 09:08 Csf, Spinal Fluid CSF Culture - Preliminary No growth in 24 hours. Final to follow. Laboratory Results 11/28/18 09:08: CSF Comment Reviewed 11/28/18 09:08: Miscellaneous Cytology SEE PATHOLOGY REPORT 11/28/18 16:06: Sodium 137, Potassium 4.1, Chloride 103, Carbon Dioxide 29.0, Anion Gap 5, BUN 15, Creatinine 0.87, Estim Creat Clear Calc 74.90, Est GFR (MDRD) Af Amer 111, Est GFR (MDRD) Non-Af 92, BUN/Creatinine Ratio 17.3, Glucose 171 H, Calcium 9.2 11/28/18 16:57: POC Glucose 166 H 11/29/18 05:25: Sodium 138, Potassium 3.7, Chloride 103, Carbon Dioxide 29.0, Anion Gap 6, BUN 13, Creatinine 0.85, Estim Creat Clear Calc 76.67, Est GFR (MDRD) Af Amer 113, Est GFR (MDRD) Non-Af 94, BUN/Creatinine Ratio 15.2, Glucose 182 H, Calcium 9.2 11/29/18 06:40: POC Glucose 193 H 11/29/18 11:48: POC Glucose 241 H Clinical Impression(s) from Imaging Studies Brain CT 11/24/18 11:29 IMPRESSION: Chronic involutional changes of the brain. Brain MRI 11/24/18 16:52 IMPRESSION: No acute intracranial abnormality. Mild chronic microvascular ischemic changes. Cervical Spine MRI 11/26/18 16:08 IMPRESSION: No evidence for acute fractures fixation. Mild spondylosis Mild to moderate bilateral neuroforaminal stenosis at C5-6 and severe on the right at C6-7 on the right primarily due to bony hypertrophy Code Visit Inpatient E&M: 30512 Subs Hosp L2
[2018-11-30] MEDS: Immune Globulin 20 gm Premixed Solution IV (15:46)
[2018-11-30] MEDS: 0.9% NaCl Peripheral Flush Adult/Peds IV ×2 (15:47→19:00)
[2018-11-30 16:08] LABS: Cytoplasmic Ab (C-ANCA) <1:20 titer (Neg:<1:20); PROEL- A/G Ratio 1.3 (0.7-1.7); PROEL- Albumin 3.5 g/dL (2.9-4.4); PROEL- Alpha-1 Globulin 0.2 g/dL (0.0-0.4); PROEL- Alpha-2 Globulin 0.8 g/dL (0.4-1.0); PROEL- Gamma Globulin 0.8 g/dL (0.4-1.8); PROEL- Globulin, Total 2.8 g/dL (2.2-3.9); PROEL- TOTAL PROTEIN 6.3 g/dL (6.0-8.5)
[2018-11-30 17:25] LABS: Bedside Glucose 320 mg/dL (70-110)
[2018-11-30] MEDS: Immune Globulin 5 GM Premixed Solution IV (18:36)
[2018-11-30 22:01] LABS: Bedside Glucose 319 mg/dL (70-110)
[2018-12-01] VITALS (16 sets, daily range): BP systolic 118–142; BP diastolic 63–102; PULSE 92–115; RESP 14–18; TEMP 36.6–37.4; O2SAT 97–100
[2018-12-01] MEDS: Insulin Lispro 100 UNIT/ML INSULN.PEN SQ ×4 (06:44→22:09)
[2018-12-01] MEDS: Acetaminophen 500 MG Tablet 1000 MG PO ×2 (06:45→22:13)
[2018-12-01 06:56] LABS: Bedside Glucose 218 mg/dL (70-110)
[2018-12-01] MEDS: Pioglitazone Hydrochloride 30 MG Tablet PO (09:22)
[2018-12-01] MEDS: Pregabalin 50 MG Capsule PO ×2 (09:22→22:14)
[2018-12-01] MEDS: Divalproex Sodium 250 MG Tablet PO ×2 (09:22→22:13)
[2018-12-01] MEDS: Aspirin E.C. 81 MG Tablet PO (09:22)
[2018-12-01] MEDS: Lisinopril 20 MG Tablet PO (09:22)
[2018-12-01] MEDS: Heparin Injection (Vial) 5,000 UNIT/ML VIAL 5000 UNIT SC (09:23)
[2018-12-01 11:26] LABS: Bedside Glucose 248 mg/dL (70-110)
[2018-12-01] MEDS: Immune Globulin 10 gm Premixed Solution IV ×2 (12:39→14:21)
--- NOTE | 2018-12-01 12:49 | PCM.PN.HOSP ---
Patient Problems: Active and Suspected Problems Bilateral leg weakness (Acute) Subjective: Patient seen and examined. was by his bedside. Patient had no complaints this morning but according to his nurse, patient still was very weak and was a 4 person assist. He denied any fever or chills, lightheadedness or dizziness, palpitations, abdominal pain, diarrhea or vomiting. Patient was alert and able to answer questions. His had concerns because she said since he was managed for sepsis and probable [facility] ICU several months ago, patient had been getting progressively weaker. She also stated that patient was sent out of the senior living per insurance regulations so she does not think she has had enough therapy and he ended up having several falls at home. Patient currently on IVIG. Vitals/I&O's: Vital Signs Temp Pulse Resp BP Pulse Ox 98.5 F 96 16 135/77 H 98 12/01/18 12:27 12/01/18 12:27 12/01/18 12:27 12/01/18 12:27 12/01/18 12:27 Oxygen Delivery Method Room Air Weight: 152 lb 1.903 oz Body Mass Index (BMI) 21.8 Intake and Output for Last 24 Hours 11/29/18 11/30/18 12/01/18 23:59 23:59 23:59 Intake Total 1261 / 1261 1410 / 1410 240 / 240 Output Total 575 / 575 875 / 875 200 / 200 Balance 686 / 686 535 / 535 40 / 40 General: Alert, Oriented x3, Cooperative, No apparent distress HEENT: Atraumatic, PERRLA, EOMI, Normocephalic Oral: Moist Mucosa Neck: Supple, No JVD, Negative Carotid Bruits Lungs: Clear to auscultation, Normal air movement, No rhonchi, No wheeze, No rales Cardiovascular: Regular rate, Regular Rhythm, Normal S1, Normal S2, No murmurs Abdomen: Bowel Sounds Present, Soft, Non Tender, Non-Distended, No Hepato-splenomegaly Extremities: No clubbing, No cyanosis, No edema, Capillary Refill Less than 3 Seconds Skin: No rashes, No breakdown Musculoskeletal: No Tenderness to Palpation of Joints or Extremities, - - mild muscle wasting of LEs Lymphatic: No Cervical, Supraclavicular, or Inguinal Adenopathy Neurological: Cranial nerves II-XII grossly intact, - - 2/5 power in LEs; has 2+ reflexes in LEs, with normal sensation. Starting to have mild contractures of LEs at knee Psych/Mental Status: Normal Affect, Appropriate, Alert and oriented to time, place, person, mood and affect Microbiology Past 72 Hours 11/28/18 09:08 Csf, Spinal Fluid Gram Stain - Final 11/28/18 09:08 Csf, Spinal Fluid CSF Culture - Final No growth in 72 hours. 11/28/18 17:55 Interface Orders Urine Culture - Final Mixed Gram Positive Organisms Laboratory Results 11/27/18 21:40: KLARISSA Screen Negative 11/30/18 16:46: POC Glucose 320 H 11/30/18 21:46: POC Glucose 319 H 12/01/18 06:43: POC Glucose 218 H 12/01/18 11:19: POC Glucose 248 H Current Medications Acetaminophen (Tylenol) 1,000 mg PO Q8 [facility] Last Admin: 12/01/18 06:45 Dose: 1,000 mg Aspirin (Ecotrin) 81 mg PO DAILYCM [facility] Last Admin: 12/01/18 09:22 Dose: 81 mg Dextrose (D50w Syringe) 0 gm IV X1 PRN; Protocol PRN Reason: Hypoglycemia Divalproex Sodium (Depakote) 250 mg PO BID [facility] [place] Last Admin: 12/01/18 09:22 Dose: 250 mg Glucagon () 1 mg IM .X1 PRN PRN Reason: Hypoglycemia Heparin Sodium (Porcine) (Heparin Na) 5,000 unit SC Q12 [facility] Last Admin: 12/01/18 09:23 Dose: 5,000 unit Hydralazine HCl (Apresoline Iv) 10 mg IV Q6H PRN PRN PRN Reason: SBP>180 mmhg Immune Globulin 10 gm/ N/A 100 mls @ 35 mls/hr IV Q1H [facility]; Protocol Stop: 12/01/18 13:59 Last Admin: 12/01/18 12:39 Dose: 35 mls/hr Immune Globulin 5 gm/ N/A 50 mls @ 35 mls/hr IV Q1H [facility]; Protocol Stop: 12/01/18 14:59 Ibuprofen (Motrin) 600 mg PO Q8H PRN PRN PRN Reason: PAIN Last Admin: 11/26/18 10:30 Dose: 600 mg Insulin Glargine (Lantus (Bkc)) 15 units SC BID [facility] Last Admin: 12/01/18 09:23 Dose: 15 units Insulin Human Lispro (Humalog Kwikpen (Bkc)) 0 unit SQ ACHS [facility]; Protocol Last Admin: 12/01/18 11:21 Dose: 2 units Lisinopril (Zestril) 20 mg PO DAILY [facility] Last Admin: 12/01/18 09:22 Dose: 20 mg Nutritional Formula (Lactose Free) (Glucerna Shake) 120 ml PO 4X/DAY [facility] [place] Last Admin: 12/01/18 09:24 Dose: Not Given Pioglitazone HCl (Actos) 30 mg PO DAILY [facility] [place] Last Admin: 12/01/18 09:22 Dose: 30 mg Pregabalin (Lyrica) 50 mg PO BID [facility] [place] Last Admin: 12/01/18 09:22 Dose: 50 mg Quetiapine Fumarate (Seroquel) 12.5 mg PO QHS PRN PRN PRN Reason: insomnia Sodium Chloride () 5 - 15 ml IV UD PRN PRN Reason: SALINE FLUSH Last Admin: 11/30/18 19:00 Dose: 10 ml Medical Necessity - Tobacco Use Smoking Status: Never smoker Tobacco Use: Non-smoker Assessment/Plan All Active Problems Acute encephalopathy (Acute) Diabetic keto-acidosis (Acute) Seizure disorder (Acute) Elevated troponin (Acute) Hypernatremia (Acute) Hyperglycemia (Acute) Community acquired pneumonia (Acute) Bilateral leg weakness (Acute) 1. Acute metabolic encephalopathy resolved. Cause wasnt very clear EEG done in September 2018 was reported as abnormal due to mild generalized slowing with no epileptiform discharges noted. Patient now alert and able to communicate well. UA done showed mixed gram-positive organisms. He was started on ceftriaxone initially but this was discontinued after urine culture grew gram-positive organisms which were likely contaminant. MRI of the cervical spine showed mild to moderate bilateral foraminal stenosis at C5 and C6 and severe on the right at C6-C7 due to bone hypertrophy. Will monitor. 2. Subacute demyelinating polyneuropathy Patient has several falls at home. MRI of lumbar spine was negative. Neurology on board and want to rule out demyelinating neuropathy like CIDP of Guillain-Parsons? syndrome. KLARISSA screen is negative and other rheumatologic studies pending. Rheumatoid factor was elevated at 71. CSF after spinal tap showed suspicion of renal cytologic dissociation. 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 Patient currently on IVIG. Today's day 4. 3. Debility due to neuropathy and recurrent falls as under 2. fall precautions 4. Orthostatic hypotension: Resolved. 5. Dementia: According to family, patient had been well kept falls at home. TSH was within normal limits and vitamin B12 and folate also within normal limits. He was started on Aricept but this was discontinued. Patient currently stable and alert and oriented and able to carry on a conversation. 7. Diabetes mellitus: Lantus 15 units twice daily and insulin sliding scale. Accuchecks ACHS. Also on pioglitazone 30 mg daily. 8. Hypertension: On lisinopril. BP well controlled DVT prophylaxis: heparin Disposition: for placement when medically stable. Code Visit OBSV E&M: 78798 Subsequent observation care L3
--- NOTE | 2018-12-01 12:59 | PN_ITS ---
Patient Problems: Active and Suspected Problems Bilateral leg weakness (Acute) Subjective: Patient seen and examined. was by his bedside. Patient had no complaints this morning but according to his nurse, patient still was very weak and was a 4 person assist. He denied any fever or chills, lightheadedness or dizziness, pal pitations, abdominal pain, diarrhea or vomiting. Patient was alert and able to answer questions. His had concerns because she said since he was managed for sepsis and probable [facility] ICU several months ago, patient had been getting progressively weaker. She also stated that patient was sent out of the long term per insurance regulations so she does not think she has had enough therapy and he ended up having several falls at home. Patient currently on IVIG. Vitals/I&O's: Vital Signs Temp Pulse Resp BP Pulse Ox 98.5 F 96 16 135/77 H 98 12/01/18 12:27 12/01/18 12:27 12/01/18 12:27 12/01/18 12:27 12/01/18 12:27 Oxygen Delivery Method Room Air Weight: 152 lb 1.903 oz Body Mass Index (BMI) 21.8 Intake and Output for Last 24 Hours 11/29/18 11/30/18 12/01/18 23:59 23:59 23:59 Intake Total 1261 / 1261 1410 / 1410 240 / 240 Output Total 575 / 575 875 / 875 200 / 200 Balance 686 / 686 535 / 535 40 / 40 General: Alert, Oriented x3, Cooperative, No apparent distress HEENT: Atraumatic, PERRLA, EOMI, Normocephalic Oral: Moist Mucosa Neck: Supple, No JVD, Negative Carotid Bruits Lungs: Clear to auscultation, Normal air movement, No rhonchi, No wheeze, No rales Cardiovascular: Regular rate, Regular Rhythm, Normal S1, Normal S2, No murmurs Abdomen: Bowel Sounds Present, Soft, Non Tender, Non-Distended, No Hepato- splenomegaly Extremities: No clubbing, No cyanosis, No edema, Capillary Refill Less than 3 Seconds Skin: No rashes, No breakdown Musculoskeletal: No Tenderness to Palpation of Joints or Extremities, - - mild muscle wasting of LEs Lymphatic: No Cervical, Supraclavicular, or Inguinal Adenopathy Neurological: Cranial nerves II-XII grossly intact, - - 2/5 power in LEs; has 2+ reflexes in LEs, with normal sensation. Starting to have mild contractures of LEs at knee Psych/Mental Status: Normal Affect, Appropriate, Alert and oriented to time, place, person, mood and affect Microbiology Past 72 Hours 11/28/18 09:08 Csf, Spinal Fluid Gram Stain - Final 11/28/18 09:08 Csf, Spinal Fluid CSF Culture - Final No growth in 72 hours. 11/28/18 17:55 Interface Orders Urine Culture - Final Mixed Gram Positive Organisms Laboratory Results 11/27/18 21:40: KLARISSA Screen Negative 11/30/18 16:46: POC Glucose 320 H 11/30/18 21:46: POC Glucose 319 H 12/01/18 06:43: POC Glucose 218 H 12/01/18 11:19: POC Glucose 248 H Current Medications Acetaminophen (Tylenol) 1,000 mg PO Q8 [facility] Last Admin: 12/01/18 06:45 Dose: 1,000 mg Aspirin (Ecotrin) 81 mg PO DAILYCM [facility] Last Admin: 12/01/18 09:22 Dose: 81 mg Dextrose (D50w Syringe) 0 gm IV X1 PRN; Protocol PRN Reason: Hypoglycemia Divalproex Sodium (Depakote) 250 mg PO BID [facility] Last Admin: 12/01/18 09:22 Dose: 250 mg Glucagon () 1 mg IM .X1 PRN PRN Reason: Hypoglycemia Heparin Sodium (Porcine) (Heparin Na) 5,000 unit SC Q12 [facility] Last Admin: 12/01/18 09:23 Dose: 5,000 unit Hydralazine HCl (Apresoline Iv) 10 mg IV Q6H PRN PRN PRN Reason: SBP>180 mmhg Immune Globulin 10 gm/ N/A 100 mls @ 35 mls/hr IV Q1H [facility]; Protocol Stop: 12/01/18 13:59 Last Admin: 12/01/18 12:39 Dose: 35 mls/hr Immune Globulin 5 gm/ N/A 50 mls @ 35 mls/hr IV Q1H [facility]; Protocol Stop: 12/01/18 14:59 Ibuprofen (Motrin) 600 mg PO Q8H PRN PRN PRN Reason: PAIN Last Admin: 11/26/18 10:30 Dose: 600 mg Insulin Glargine (Lantus (Bkc)) 15 units SC BID [facility] Last Admin: 12/01/18 09:23 Dose: 15 units Insulin Human Lispro (Humalog Kwikpen (Bkc)) 0 unit SQ ACHS [facility]; Protocol Last Admin: 12/01/18 11:21 Dose: 2 units Lisinopril (Zestril) 20 mg PO DAILY [facility] Last Admin: 12/01/18 09:22 Dose: 20 mg Nutritional Formula (Lactose Free) (Glucerna Shake) 120 ml PO 4X/DAY [facility] Last Admin: 12/01/18 09:24 Dose: Not Given Pioglitazone HCl (Actos) 30 mg PO DAILY [facility] Last Admin: 12/01/18 09:22 Dose: 30 mg Pregabalin (Lyrica) 50 mg PO BID [facility] Last Admin: 12/01/18 09:22 Dose: 50 mg Quetiapine Fumarate (Seroquel) 12.5 mg PO QHS PRN PRN PRN Reason: insomnia Sodium Chloride () 5 - 15 ml IV UD PRN PRN Reason: SALINE FLUSH Last Admin: 11/30/18 19:00 Dose: 10 ml Medical Necessity - Tobacco Use Smoking Status: Never smoker Tobacco Use: Non-smoker Assessment/Plan All Active Problems Acute encephalopathy (Acute) Diabetic keto-acidosis (Acute) Seizure disorder (Acute) Elevated troponin (Acute) Hypernatremia (Acute) Hyperglycemia (Acute) Community acquired pneumonia (Acute) Bilateral leg weakness (Acute) 1. Acute metabolic encephalopathy * resolved. Cause wasnt very clear * EEG done in September 2018 was reported as abnormal due to mild generalized slowing with no epileptiform discharges noted. Patient now alert and able to communicate well. * UA done showed mixed gram-positive organisms. He was started on ceftriaxone initially but this was discontinued after urine culture grew gram-positive organisms which were likely contaminant. * MRI of the cervical spine showed mild to moderate bilateral foraminal stenosis at C5 and C6 and severe on the right at C6-C7 due to bone hypertrophy. * Will monitor. * 2. Subacute demyelinating polyneuropathy * Patient has several falls at home. * MRI of lumbar spine was negative. Neurology on board and want to rule out demyelinating neuropathy like CIDP of Guillain-Parsons? syndrome. * KLARISSA screen is negative and other rheumatologic studies pending. Rheumatoid factor was elevated at 71. * CSF after spinal tap showed suspicion of renal cytologic dissociation. 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 * Patient currently on IVIG. Today's day 4. * 3. Debility due to neuropathy and recurrent falls * as under 2. * fall precautions * 4. Orthostatic hypotension: Resolved. 5. Dementia: * According to family, patient had been well kept falls at home. * TSH was within normal limits and vitamin B12 and folate also within normal limits. He was started on Aricept but this was discontinued. * Patient currently stable and alert and oriented and able to carry on a conversation. * 7. Diabetes mellitus: Lantus 15 units twice daily and insulin sliding scale. Accuchecks ACHS. Also on pioglitazone 30 mg daily. 8. Hypertension: On lisinopril. BP well controlled DVT prophylaxis: heparin Disposition: for placement when medically stable. Code Visit OBSV E&M: 54085 Subsequent observation care L3
[2018-12-01 15:12] LABS: Perinuclear Ab (P-ANCA) <1:20 titer (Neg:<1:20)
[2018-12-01] MEDS: Immune Globulin 5 GM Premixed Solution IV (15:18)
[2018-12-01] MEDS: QUEtiapine 25 MG Tablet 12.5 MG PO (22:14)
[2018-12-01 22:56] LABS: Bedside Glucose 314 mg/dL (70-110)
[2018-12-01 22:56] LABS: Bedside Glucose 247 mg/dL (70-110)
[2018-12-02] VITALS (20 sets, daily range): BP systolic 93–136; BP diastolic 59–84; PULSE 83–102; RESP 16–21; TEMP 36.7–37.3; O2SAT 95–100
[2018-12-02] MEDS: Acetaminophen 500 MG Tablet 1000 MG PO ×3 (05:44→20:40)
[2018-12-02 06:11] LABS: Absolute Lymphocyte Count 1.59 X10^3/ul (0.83-4.51); Absolute Neutrophil Count 1.7 X10^3/uL (2.0-7.7); Basophil# 0.01 X10^3/uL; Basophil% 0.3 % (0-1); Eosinophil# 0.01 X10^3/uL; Eosinophils% 0.3 % (0-5); Hematocrit 35.6 % (40-54); Hemoglobin 12.1 g/dl (13.0-16.5); Lymphocyte # 1.59 X10^3/ul (4.0); Mean Corpuscular Hgb 30.2 pg (27.0-32.0); Mean Corpuscular Volume 88.8 fL (80-94); Mean Platelet Vol. 10.4 fl (6.2-12.0); Monocyte# 0.38 X10^3/uL; Monocyte% 10.3 % (0-10); Neutrophil % 45.8 % (47-70); Platelet Count 190 K/mm3 (150-450); RBC Distribution Width CV 14.2 % (11.6-14.6); Red Blood Count 4.01 M/mm3 (4.6-6.2); White Blood Count 3.7 K/mm3 (4.4-11.0)
[2018-12-02 06:19] LABS: POSITIVE COUNT NO; POSITIVE DIFFERENTIAL NO; POSITIVE MORPHOLOGY NO
[2018-12-02] MEDS: Insulin Lispro 100 UNIT/ML INSULN.PEN SQ ×3 (06:46→21:00)
[2018-12-02 07:00] LABS: Bedside Glucose 186 mg/dL (70-110)
[2018-12-02 07:03] LABS: Anion Gap 6 (5-15); BUN 19 mg/dL (7-18); BUN/Creat Ratio 24.5 RATIO (10-20); Chloride 105 mmol/L (98-107); Creatinine, Serum 0.78 mg/dL (0.70-1.30); EST Glomerular Filtration Rate 105 mL/min (>60); Est Glom Filt Rate - Afr Amer 127 mL/min (>60); Estimated Creatinine Clearance 65.17 ml/min; Glucose 179 mg/dL (74-106); Potassium 3.8 mmol/L (3.5-5.1); Sodium Level 137 mmol/L (136-145)
--- NOTE | 2018-12-02 09:57 | PCM.PN.HOSP ---
Patient Problems: Active and Suspected Problems Bilateral leg weakness (Acute) Subjective: Patient seen and examined. He had no active complaints. He did see the improvement to the weakness of his lower extremities. Labs and vitals reviewed. Vitals/I&O's: Vital Signs Temp Pulse Resp BP Pulse Ox 98.5 F 96 17 128/74 H 95 12/02/18 09:25 12/02/18 09:25 12/02/18 09:25 12/02/18 09:25 12/02/18 09:25 Oxygen Delivery Method Room Air Weight: 152 lb 1.903 oz Body Mass Index (BMI) 21.8 Intake and Output for Last 24 Hours 11/30/18 12/01/18 12/02/18 23:59 23:59 23:59 Intake Total 1410 / 1410 730 / 730 360 / 360 Output Total 875 / 875 200 / 200 150 / 150 Balance 535 / 535 530 / 530 210 / 210 General: Alert, Oriented x3, Cooperative, No apparent distress HEENT: Atraumatic, PERRLA, EOMI, Normocephalic Oral: Moist Mucosa Neck: Supple, No JVD, Negative Carotid Bruits Lungs: Clear to auscultation, Normal air movement, No rhonchi, No wheeze, No rales Cardiovascular: Regular rate, Regular Rhythm, Normal S1, Normal S2, No murmurs Abdomen: Bowel Sounds Present, Soft, Non Tender, Non-Distended, No Hepato-splenomegaly Extremities: No clubbing, No cyanosis, No edema, Capillary Refill Less than 3 Seconds Skin: No rashes, No breakdown Musculoskeletal: No Tenderness to Palpation of Joints or Extremities, - - mild muscle wasting of LEs Lymphatic: No Cervical, Supraclavicular, or Inguinal Adenopathy Neurological: Cranial nerves II-XII grossly intact, - - 2/5 power in LEs; has 2+ reflexes in LEs, with normal sensation. Starting to have mild contractures of LEs at knee Psych/Mental Status: flat affect Microbiology Past 72 Hours 11/28/18 09:08 Csf, Spinal Fluid Gram Stain - Final 11/28/18 09:08 Csf, Spinal Fluid CSF Culture - Final No growth in 72 hours. 11/28/18 17:55 Interface Orders Urine Culture - Final Mixed Gram Positive Organisms Laboratory Results 11/27/18 21:40: Total Protein (PEP) 6.3, Albumin (PEP) 3.5, Globulin (PEP) 2.8, Albumin/Globulin (PEP) 1.3, Ddtpo-7-Ltwwwwcrz 0.2, Sxhwl-4-Egahzhomd 0.8, Beta Globulins 1.0, Gamma Globulins 0.8, M-Jimi , PEP Note Comment, PEP Interpretation Comment, c-ANCA Antibody <1:20, Atypical p-ANCA <1:20, p-ANCA Antibody <1:20, Anti-ss DNA IgG Ab <20 11/28/18 09:08: CSF Cryptococcus Ag Negative 12/01/18 11:19: POC Glucose 248 H 12/01/18 16:27: POC Glucose 247 H 12/01/18 22:08: POC Glucose 314 H 12/02/18 04:57: WBC 3.7 L, RBC 4.01 L, Hgb 12.1 L, Hct 35.6 L, MCV 88.8, MCH 30.2, MCHC 34.0, RDW 14.2, RDW Differential 46.0 H, Plt Count 190, MPV 10.4, Immature Gran % (Auto) 0.300, Neut % (Auto) 45.8 L, Lymph % (Auto) 43.0 H, [place] % (Auto) 10.3 H, Eos % (Auto) 0.3, Baso % (Auto) 0.3, Absolute Neuts (auto) 1.7 L, Absolute Lymphs (auto) 1.59, Total Counted Not Reportable 12/02/18 04:57: Sodium 137, Potassium 3.8, Chloride 105, Carbon Dioxide 26.0, Anion Gap 6, BUN 19 H, Creatinine 0.78, Estim Creat Clear Calc 65.17, Est GFR (MDRD) Af Amer 127, Est GFR (MDRD) Non-Af 105, BUN/Creatinine Ratio 24.5 H, Glucose 179 H, Calcium 9.0 12/02/18 06:44: POC Glucose 186 H Current Medications Acetaminophen (Tylenol) 1,000 mg PO Q8 [facility] Last Admin: 12/02/18 05:44 Dose: 1,000 mg Aspirin (Ecotrin) 81 mg PO DAILYCM [facility] Last Admin: 12/01/18 09:22 Dose: 81 mg Dextrose (D50w Syringe) 0 gm IV X1 PRN; Protocol PRN Reason: Hypoglycemia Divalproex Sodium (Depakote) 250 mg PO BID [facility] Last Admin: 12/01/18 22:13 Dose: 250 mg Glucagon () 1 mg IM .X1 PRN PRN Reason: Hypoglycemia Heparin Sodium (Porcine) (Heparin Na) 5,000 unit SC Q12 [facility] Last Admin: 12/01/18 22:24 Dose: Not Given Hydralazine HCl (Apresoline Iv) 10 mg IV Q6H PRN PRN PRN Reason: SBP>180 mmhg Immune Globulin 10 gm/ N/A 100 mls @ 35 mls/hr IV Q1H [facility]; Protocol Stop: 12/02/18 11:59 Immune Globulin 5 gm/ N/A 50 mls @ 35 mls/hr IV Q1H [facility]; Protocol Stop: 12/02/18 12:59 Ibuprofen (Motrin) 600 mg PO Q8H PRN PRN PRN Reason: PAIN Last Admin: 11/26/18 10:30 Dose: 600 mg Insulin Glargine (Lantus (Bkc)) 15 units SC BID [facility] Last Admin: 12/01/18 22:11 Dose: 15 units Insulin Human Lispro (Humalog Kwikpen (Bkc)) 0 unit SQ ACHS [facility]; Protocol Last Admin: 12/02/18 06:46 Dose: 1 units Lisinopril (Zestril) 20 mg PO DAILY [facility] Last Admin: 12/01/18 09:22 Dose: 20 mg Nutritional Formula (Lactose Free) (Glucerna Shake) 120 ml PO 4X/DAY [facility] Last Admin: 12/01/18 22:21 Dose: Not Given Pioglitazone HCl (Actos) 30 mg PO DAILY [facility] Last Admin: 12/01/18 09:22 Dose: 30 mg Pregabalin (Lyrica) 50 mg PO BID [facility] Last Admin: 12/01/18 22:14 Dose: 50 mg Quetiapine Fumarate (Seroquel) 12.5 mg PO QHS PRN PRN PRN Reason: insomnia Last Admin: 12/01/18 22:14 Dose: 12.5 mg Sodium Chloride () 5 - 15 ml IV UD PRN PRN Reason: SALINE FLUSH Last Admin: 11/30/18 19:00 Dose: 10 ml Medical Necessity - Tobacco Use Smoking Status: Never smoker Tobacco Use: Non-smoker Assessment/Plan All Active Problems Acute encephalopathy (Acute) Diabetic keto-acidosis (Acute) Seizure disorder (Acute) Elevated troponin (Acute) Hypernatremia (Acute) Hyperglycemia (Acute) Community acquired pneumonia (Acute) Bilateral leg weakness (Acute) 1. Acute metabolic encephalopathy resolved. MRI of the cervical spine showed mild to moderate bilateral foraminal stenosis at C5 and C6 and severe on the right at C6-C7 due to bone hypertrophy. Will monitor. 2. Subacute demyelinating polyneuropathy Patient has had several falls at home. MRI of lumbar spine was negative. Neurology on board and want to rule out demyelinating neuropathy like CIDP of Guillain-Parsons? syndrome. KLARISSA screen is negative and other rheumatologic studies pending. Rheumatoid factor was elevated at 71. c-ANCA, atypical p-ANCA nad p-ANCA antibodies are negative. anti- ss DNA IgG antibody is also negative. Other rheumatological labs are pending. CSF after spinal tap showed suspicion of renal cytologic dissociation. 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 Patient currently on IVIG. Today's day 5 neurology on board 3. Debility due to neuropathy and recurrent falls as under 2. fall precautions 4. Orthostatic hypotension: Resolved. 5. Dementia: Patient currently stable and alert and oriented and able to carry on a conversation. 7. Diabetes mellitus: Lantus 15 units twice daily and insulin sliding scale. Accuchecks ACHS. Also on pioglitazone 30 mg daily. 8. Hypertension: On lisinopril. BP well controlled DVT prophylaxis: heparin Disposition:awaiting placement. Code Visit OBSV E&M: 86005 Subsequent observation care L2
--- NOTE | 2018-12-02 10:02 | PN_ITS ---
Patient Problems: Active and Suspected Problems Bilateral leg weakness (Acute) Subjective: Patient seen and examined. He had no active complaints. He did see the improvement to the weakness of his lower extremities. Labs and vitals reviewed. Vitals/I&O's: Vital Signs Temp Pulse Resp BP Pulse Ox 98.5 F 96 17 128/74 H 95 12/02/18 09:25 12/02/18 09:25 12/02/18 09:25 12/02/18 09:25 12/02/18 09:25 Oxygen Delivery Method Room Air Weight: 152 lb 1.903 oz Body Mass Index (BMI) 21.8 Intake and Output for Last 24 Hours 11/30/18 12/01/18 12/02/18 23:59 23:59 23:59 Intake Total 1410 / 1410 730 / 730 360 / 360 Output Total 875 / 875 200 / 200 150 / 150 Balance 535 / 535 530 / 530 210 / 210 General: Alert, Oriented x3, Cooperative, No apparent distress HEENT: Atraumatic, PERRLA, EOMI, Normocephalic Oral: Moist Mucosa Neck: Supple, No JVD, Negative Carotid Bruits Lungs: Clear to auscultation, Normal air movement, No rhonchi, No wheeze, No rales Cardiovascular: Regular rate, Regular Rhythm, Normal S1, Normal S2, No murmurs Abdomen: Bowel Sounds Present, Soft, Non Tender, Non-Distended, No Hepato-splenomegaly Extremities: No clubbing, No cyanosis, No edema, Capillary Refill Less than 3 Seconds Skin: No rashes, No breakdown Musculoskeletal: No Tenderness to Palpation of Joints or Extremities, - - mild muscle wasting of LEs Lymphatic: No Cervical, Supraclavicular, or Inguinal Adenopathy Neurological: Cranial nerves II-XII grossly intact, - - 2/5 power in LEs; has 2+ reflexes in LEs, with normal sensation. Starting to have mild contractures of LEs at knee Psych/Mental Status: flat affect Microbiology Past 72 Hours 11/28/18 09:08 Csf, Spinal Fluid Gram Stain - Final 11/28/18 09:08 Csf, Spinal Fluid CSF Culture - Final No growth in 72 hours. 11/28/18 17:55 Interface Orders Urine Culture - Final Mixed Gram Positive Organisms Laboratory Results 11/27/18 21:40: Total Protein (PEP) 6.3, Albumin (PEP) 3.5, Globulin (PEP) 2.8, Albumin/Globulin (PEP) 1.3, Hybpf-0-Tgrnrykna 0.2, Maiso-4-Hkiegqjsq 0.8, Beta Globulins 1.0, Gamma Globulins 0.8, M-Jimi , PEP Note Comment, PEP Interpretation Comment, c-ANCA Antibody <1:20, Atypical p-ANCA <1:20, p-ANCA Antibody <1:20, Anti-ss DNA IgG Ab <20 11/28/18 09:08: CSF Cryptococcus Ag Negative 12/01/18 11:19: POC Glucose 248 H 12/01/18 16:27: POC Glucose 247 H 12/01/18 22:08: POC Glucose 314 H 12/02/18 04:57: WBC 3.7 L, RBC 4.01 L, Hgb 12.1 L, Hct 35.6 L, MCV 88.8, MCH 30.2, MCHC 34.0, RDW 14.2, RDW Differential 46.0 H, Plt Count 190, MPV 10.4, Immature Gran % (Auto) 0.300, Neut % (Auto) 45.8 L, Lymph % (Auto) 43.0 H, [place] % (Auto) 10.3 H, Eos % (Auto) 0.3, Baso % (Auto) 0.3, Absolute Neuts (auto) 1.7 L, Absolute Lymphs (auto) 1.59, Total Counted Not Reportable 12/02/18 04:57: Sodium 137, Potassium 3.8, Chloride 105, Carbon Dioxide 26.0, Anion Gap 6, BUN 19 H, Creatinine 0.78, Estim Creat Clear Calc 65.17, Est GFR (MDRD) Af Amer 127, Est GFR (MDRD) Non-Af 105, BUN/Creatinine Ratio 24.5 H, Glucose 179 H, Calcium 9.0 12/02/18 06:44: POC Glucose 186 H Current Medications Acetaminophen (Tylenol) 1,000 mg PO Q8 [facility] Last Admin: 12/02/18 05:44 Dose: 1,000 mg Aspirin (Ecotrin) 81 mg PO DAILYCM [facility] Last Admin: 12/01/18 09:22 Dose: 81 mg Dextrose (D50w Syringe) 0 gm IV X1 PRN; Protocol PRN Reason: Hypoglycemia Divalproex Sodium (Depakote) 250 mg PO BID [facility] Last Admin: 12/01/18 22:13 Dose: 250 mg Glucagon () 1 mg IM .X1 PRN PRN Reason: Hypoglycemia Heparin Sodium (Porcine) (Heparin Na) 5,000 unit SC Q12 [facility] Last Admin: 12/01/18 22:24 Dose: Not Given Hydralazine HCl (Apresoline Iv) 10 mg IV Q6H PRN PRN PRN Reason: SBP>180 mmhg Immune Globulin 10 gm/ N/A 100 mls @ 35 mls/hr IV Q1H DAMIEN; Protocol Stop: 12/02/18 11:59 Immune Globulin 5 gm/ N/A 50 mls @ 35 mls/hr IV Q1H DAMIEN; Protocol Stop: 12/02/18 12:59 Ibuprofen (Motrin) 600 mg PO Q8H PRN PRN PRN Reason: PAIN Last Admin: 11/26/18 10:30 Dose: 600 mg Insulin Glargine (Lantus (Bkc)) 15 units SC BID [facility] Last Admin: 12/01/18 22:11 Dose: 15 units Insulin Human Lispro (Humalog Kwikpen (Bkc)) 0 unit SQ ACHS [facility]; Protocol Last Admin: 12/02/18 06:46 Dose: 1 units Lisinopril (Zestril) 20 mg PO DAILY [facility] Last Admin: 12/01/18 09:22 Dose: 20 mg Nutritional Formula (Lactose Free) (Glucerna Shake) 120 ml PO 4X/DAY [facility] Last Admin: 12/01/18 22:21 Dose: Not Given Pioglitazone HCl (Actos) 30 mg PO DAILY [facility] Last Admin: 12/01/18 09:22 Dose: 30 mg Pregabalin (Lyrica) 50 mg PO BID [facility] Last Admin: 12/01/18 22:14 Dose: 50 mg Quetiapine Fumarate (Seroquel) 12.5 mg PO QHS PRN PRN PRN Reason: insomnia Last Admin: 12/01/18 22:14 Dose: 12.5 mg Sodium Chloride () 5 - 15 ml IV UD PRN PRN Reason: SALINE FLUSH Last Admin: 11/30/18 19:00 Dose: 10 ml Medical Necessity - Tobacco Use Smoking Status: Never smoker Tobacco Use: Non-smoker Assessment/Plan All Active Problems Acute encephalopathy (Acute) Diabetic keto-acidosis (Acute) Seizure disorder (Acute) Elevated troponin (Acute) Hypernatremia (Acute) Hyperglycemia (Acute) Community acquired pneumonia (Acute) Bilateral leg weakness (Acute) 1. Acute metabolic encephalopathy * resolved. * MRI of the cervical spine showed mild to moderate bilateral foraminal stenosis at C5 and C6 and severe on the right at C6-C7 due to bone hypertrophy. * Will monitor. * 2. Subacute demyelinating polyneuropathy * Patient has had several falls at home. * MRI of lumbar spine was negative. Neurology on board and want to rule out demyelinating neuropathy like CIDP of Guillain-Parsons? syndrome. * KLARISSA screen is negative and other rheumatologic studies pending. Rheumatoid factor was elevated at 71. * c-ANCA, atypical p-ANCA nad p-ANCA antibodies are negative. anti- ss DNA IgG antibody is also negative. Other rheumatological labs are pending. * CSF after spinal tap showed suspicion of renal cytologic dissociation. 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 * Patient currently on IVIG. Today's day 5 * neurology on board * 3. Debility due to neuropathy and recurrent falls * as under 2. * fall precautions * 4. Orthostatic hypotension: Resolved. 5. Dementia: * Patient currently stable and alert and oriented and able to carry on a conversation. * 7. Diabetes mellitus: Lantus 15 units twice daily and insulin sliding scale. Accuchecks ACHS. Also on pioglitazone 30 mg daily. 8. Hypertension: On lisinopril. BP well controlled DVT prophylaxis: heparin Disposition:awaiting placement. Code Visit OBSV E&M: 99077 Subsequent observation care L2
--- NOTE | 2018-12-02 10:49 | NURSING ---
[facility] phones requesting update on patient. Informed patient is still here and not sure of when discharge will be. Family aware of same.
[2018-12-02] MEDS: Glucerna Shake 120 ML LIQUID PO ×2 (11:12→15:27)
[2018-12-02] MEDS: Divalproex Sodium 250 MG Tablet PO ×2 (11:12→20:36)
[2018-12-02] MEDS: Pioglitazone Hydrochloride 30 MG Tablet PO (11:12)
[2018-12-02] MEDS: Aspirin E.C. 81 MG Tablet PO (11:12)
[2018-12-02] MEDS: Heparin Injection (Vial) 5,000 UNIT/ML VIAL 5000 UNIT SC (11:13)
[2018-12-02] MEDS: Lisinopril 20 MG Tablet PO (11:16)
[2018-12-02] MEDS: Pregabalin 50 MG Capsule PO ×2 (11:23→20:35)
[2018-12-02] MEDS: Ibuprofen 600 MG Tablet PO (12:08)
[2018-12-02 12:56] LABS: Bedside Glucose 175 mg/dL (70-110)
[2018-12-02] MEDS: Senna/Docusate Sodium 1 Tablet PO (15:27)
--- NOTE | 2018-12-02 17:14 | NURSING ---
RN in to administer IVIG through IV line. Patient refused. States he wants to eat dinner uninterrupted. Patient also refused to have his blood sugar checked. RN informed spouse to call nurse when patient is finished eating so that medication can be started. Patient's agrees to same.
[2018-12-02] MEDS: 0.9% NaCl Peripheral Flush Adult/Peds IV ×2 (18:22→20:36)
[2018-12-02] MEDS: Immune Globulin 10 gm Premixed Solution IV ×2 (18:23→19:50)
--- NOTE | 2018-12-02 18:35 | NURSING ---
Attempted to place rosas without success. RN met resistance when attempting to advance. Patient very uncomfortable. Rosas removed. Dr. Cordero made aware.
--- NOTE | 2018-12-02 19:10 | NURSING ---
Patient's remains at bedside and is informed of new orders.
[2018-12-02] MEDS: Tamsulosin HCl 0.4 MG Capsule PO (20:35)
[2018-12-02 22:06] LABS: Bedside Glucose 267 mg/dL (70-110)
[2018-12-03] VITALS (11 sets, daily range): BP systolic 98–120; BP diastolic 64–76; PULSE 65–109; RESP 12–18; TEMP 36.8–37.7; O2SAT 96–98
[2018-12-03 06:36] LABS: Absolute Lymphocyte Count 1.43 X10^3/ul (0.83-4.51); Absolute Neutrophil Count 1.5 X10^3/uL (2.0-7.7); Basophil# 0.01 X10^3/uL; Basophil% 0.3 % (0-1); Eosinophil# 0.01 X10^3/uL; Eosinophils% 0.3 % (0-5); Hematocrit 35.6 % (40-54); Lymphocyte # 1.43 X10^3/ul (4.0); Lymphocyte % 43.1 % (19-41); Mean Corp Hgb Conc 33.7 g/gl (32-36); Mean Corpuscular Hgb 30.2 pg (27.0-32.0); Mean Corpuscular Volume 89.4 fL (80-94); Mean Platelet Vol. 10.2 fl (6.2-12.0); Monocyte# 0.39 X10^3/uL; Monocyte% 11.7 % (0-10); Neutrophil # 1.48 X10^3/uL (2.7-7.7); Neutrophil % 44.6 % (47-70); Platelet Count 178 K/mm3 (150-450); RBC Distribution Width CV 14.2 % (11.6-14.6); RBC Distribution Width SD 46.9 fl (35.1-43.9); Red Blood Count 3.98 M/mm3 (4.6-6.2); White Blood Count 3.3 K/mm3 (4.4-11.0)
[2018-12-03 06:38] LABS: POSITIVE COUNT NO; POSITIVE DIFFERENTIAL NO; POSITIVE MORPHOLOGY NO
[2018-12-03 07:05] LABS: Bedside Glucose 168 mg/dL (70-110)
[2018-12-03 07:06] LABS: Anion Gap 5 (5-15); BUN 26 mg/dL (7-18); BUN/Creat Ratio 27.1 RATIO (10-20); Calcium,Total 9.3 mg/dL (8.5-10.1); Chloride 104 mmol/L (98-107); Creatinine, Serum 0.96 mg/dL (0.70-1.30); EST Glomerular Filtration Rate 82 mL/min (>60); Est Glom Filt Rate - Afr Amer 99 mL/min (>60); Estimated Creatinine Clearance 67.88 ml/min; Glucose 148 mg/dL (74-106); Sodium Level 138 mmol/L (136-145)
[2018-12-03] MEDS: Acetaminophen 500 MG Tablet 1000 MG PO ×3 (07:34→21:48)
--- NOTE | 2018-12-03 07:46 | PCM.CONS.U ---
Reason for Consult Date of Consultation: 12/03/18 Reason for Consultation: BPH possible hematuria History of Present Illness: The patient is a 73 year old male hospitalized for lower extremity weakness, I was called to see the patient regarding possible hematuria and also nursing staff unable to place a Charl[place] catheter. Patient is a poor historian. Does not report any problems going to the bathroom but again is a poor historian no incontinence but he is in diapers. He is attempting to get out of bed nursing staff came and helped him back into bed. UA reviewed from admission positive with leukocytes and blood possible infection. He states he saw urology in the past but cannot remember who he is not sure if he is ever been diagnosed with a large prostate or prostate cancer. Past Medical History Past Medical History (Chronic Problems): Chronic Problems Rheumatoid arthritis (Chronic) Melanoma (Chronic) Depression (Chronic) Hypertension (Chronic) TIA (transient ischemic attack) (Chronic) Stroke (Chronic) Allergies No Known Allergies Allergy (Verified 11/20/18 15:47) Home Medications: Ambulatory Orders Medication Instructions Recorded Acetaminophen [Tylenol] 1,000 mg PO Q6H PRN tablet 10/03/18 Aspirin [Aspir 81] 81 mg PO DAILY #30 tablet. 10/03/18 Divalproex Sodium 250 mg PO BID 11/20/18 Donepezil HCl [Aricept] 5 mg PO DAILY 11/20/18 Duloxetine Hcl [Cymbalta] 30 mg PO QHS 11/20/18 Insulin Glargine [Lantus SoloStar 20 units SC BID 11/20/18 Pen] Lisinopril 20 mg PO DAILY 11/20/18 Metformin HCl 500 mg PO BID 11/20/18 Pioglitazone HCl 30 mg PO DAILY 11/20/18 Ibuprofen [Motrin] 600 mg PO Q8H PRN PRN tablet 11/23/18 Insulin Lispro [Humalog KwikPen] See Protocol SQ ACHS insuln.pen 11/23/18 Surgical History: tonsillectomy, - - Inguinal hernia repair Psychiatric History: Depression Lives: Spouse/ Significant Other Smoking Status: Never smoker Tobacco Use: Non-smoker Alcohol: Rare - *Family History Maternal History Items: Cancer - breast Paternal History Items: Cancer Review of Systems Constitutional: Reports: Anorexia, Weight Change HEENT: Denies: Head Aches, Sinus Congestion, Sinus Drainage Cardiovascular: Denies: Chest Pain, Palpitations Respiratory: Denies: Cough, Shortness of breath at rest, Sputum production Gastrointestinal: Denies: Abdominal Pain, Nausea, Vomiting Genitourinary: Denies: Dysuria Musculoskeletal: Denies: Joint Pain, Joint Tenderness Skin: Denies: Rash, Wounds Neurological: Denies: Numbness, Tingling, Focal weakness Psychiatric: Denies: Anxiety, Depression, Homicidal Ideations, Suicidal Ideations Hematologic/ Lymphatic: Denies: Easy Bruising, Easy Bleeding Physical Exam - Physical Exam Vital Signs Temp 99.8 F H 12/03/18 06:00 Pulse 94 12/03/18 06:00 Resp 15 12/03/18 06:00 BP 110/68 12/03/18 06:00 Pulse Ox 98 12/03/18 06:00 Intake & Output 12/01/18 12/02/18 12/03/18 23:59 23:59 23:59 Intake Total 730 / 730 600 / 600 220 / 220 Output Total 200 / 200 590 / 590 150 / 150 Balance 530 / 530 10 / 10 70 / 70 Intake: Oral 480 / 480 600 / 600 IV fluid/meds 250 / 250 220 / 220 Output: Urine 200 / 200 590 / 590 150 / 150 Other: Number of Voids 2 1 Number of Bowel Movements 1 1 General: Alert, Oriented x3, Confused HEENT: Atraumatic, Normocephalic Oral: Moist Mucosa Neck: Supple Lungs: Normal air movement Cardiovascular: Regular rate Abdomen: Soft Rectal: Exam deferred Microbiology Past 72 Hours 11/28/18 09:08 Gram Stain - Final Csf, Spinal Fluid CSF Culture - Final No growth in 72 hours. Laboratory Tests Past 24 Hrs 12/03/18 12/03/18 05:30 05:30 WBC 3.3 L RBC 3.98 L Hgb 12.0 L Hct 35.6 L MCV 89.4 MCH 30.2 MCHC 33.7 RDW 14.2 RDW Differential 46.9 H Plt Count 178 MPV 10.2 Immature Gran % (Auto) 0.000 Neut % (Auto) 44.6 L Lymph % (Auto) 43.1 H [place] % (Auto) 11.7 H Eos % (Auto) 0.3 Baso % (Auto) 0.3 Absolute Neuts (auto) 1.5 L Absolute Lymphs (auto) 1.43 Total Counted Not Reportable Sodium 138 Potassium 4.0 Chloride 104 Carbon Dioxide 29.0 Anion Gap 5 BUN 26 H Creatinine 0.96 Estim Creat Clear Calc 67.88 Est GFR (MDRD) Af Amer 99 Est GFR (MDRD) Non-Af 82 BUN/Creatinine Ratio 27.1 H Glucose 148 H Calcium 9.3 Assessment/Plan All Active Problems Acute encephalopathy (Acute) Diabetic keto-acidosis (Acute) Seizure disorder (Acute) Elevated troponin (Acute) Hypernatremia (Acute) Hyperglycemia (Acute) Community acquired pneumonia (Acute) Bilateral leg weakness (Acute) 73-year-old male with history of bilateral lower extremity weakness compression was back suspected we will check a PSA to make sure it is not skyhigh, will do a urine with culture, order an ultrasound of the kidney and bladder. Will follow for now.
--- NOTE | 2018-12-03 07:50 | US_ITS ---
STUDY: RENAL ULTRASOUND - COMPLETE REASON FOR EXAM: Male, 73 years old. BPH TECHNIQUE: Ultrasound evaluation of the kidneys was performed with real-time and static pedraza-scale imaging. COMPARISON: None. FINDINGS: RIGHT KIDNEY: Normal location of the right kidney, which is normal in size. The right kidney measures 10.7 x 4.8 x 4.8 cm. There is a normal cortex of the right kidney. The renal cortex measures 1.2 cm. There is no right renal mass or cyst. There are no right renal calculi. There is no right hydronephrosis. DISTAL RIGHT URETER: There is non-visualization of the distal right ureter. There is no demonstrated right ureterovesical junction calculus. There is no demonstrated right ureteral jet. LEFT KIDNEY: Normal location of the left kidney, which is normal in size. The left kidney measures 9.4 x 5.4 x 5.3 cm. There is a normal cortex of the left kidney. The renal cortex measures 1.6 cm. There is no left renal mass or cyst. There are no left renal calculi. There is no left hydronephrosis. DISTAL LEFT URETER: There is non-visualization of the distal left ureter. There is no demonstrated left ureterovesical junction calculus. There is no demonstrated left ureteral jet. BLADDER: The distended urinary bladder has a volume of 75 ml. Bladder wall thickening, measuring 4 mm. There is no demonstrated mass within the urinary bladder. There are no demonstrated bladder calculi. Prostatomegaly, with prostate measuring 5 x 4.7 x 3.1 cm. Prostate calcifications. US/Kidney and Bladder IMPRESSION: The kidneys are unremarkable. Small bladder volume with bladder wall thickening. The latter could be related to cystitis or chronic bladder outlet obstruction. Prostatomegaly. Electronically Signed: Baldo Youngblood MD at 16:53 EDT Tel , Service support ,
[2018-12-03 08:19] LABS: PSA,Total- Diagnostic 2.54 ng/mL (0.0-4.0)
[2018-12-03] MEDS: Insulin Lispro 100 UNIT/ML INSULN.PEN SQ ×4 (08:54→21:59)
[2018-12-03] MEDS: Aspirin E.C. 81 MG Tablet PO (08:56)
[2018-12-03] MEDS: Divalproex Sodium 250 MG Tablet PO ×2 (08:56→21:48)
[2018-12-03] MEDS: Pregabalin 50 MG Capsule PO ×2 (08:57→21:58)
[2018-12-03] MEDS: Pioglitazone Hydrochloride 30 MG Tablet PO (08:57)
[2018-12-03] MEDS: Lisinopril 20 MG Tablet PO (08:58)
--- NOTE | 2018-12-03 10:07 | NURSING ---
per HS RN, pt pulled IV out last night and would not allow staff to place new IV.
--- NOTE | 2018-12-03 10:44 | CASEMGMT ---
KARI faxed updates to [facility]. Per physician patient may not be ready still today. Tashia MARIN MSW
[2018-12-03] MEDS: Senna/Docusate Sodium 1 Tablet PO (10:49)
[2018-12-03 11:26] LABS: Bedside Glucose 191 mg/dL (70-110)
--- NOTE | 2018-12-03 13:34 | NURSING ---
pt continuously stating he needs to have BM. pt on/off bedpan most of day. stool softener/laxative given. suppository offered and pt continues to refuse it. will continue to monitor.
[2018-12-03] MEDS: Glucerna Shake 120 ML LIQUID PO (14:34)
--- NOTE | 2018-12-03 15:18 | PCM.PN.HOSP ---
Patient Problems: Active and Suspected Problems Bilateral leg weakness (Acute) Subjective: Patient still has ongoing.'s of confusion and delirium and decreased responsiveness but most of the time he looks better, responds to question. At times he is oriented to 1 with impulsiveness and restlessness. Pulled out IV line last night. Patient had obvious microscopic hematuria as reported by . Prior to that to UA sample shows microscopic hematuria, 50?100 cells, WBC 25-50 cells with mixed contamination in urine culture; although patient got empiric 2 days of IV antibiotics prior to urine culture result Vitals/I&O's: Vital Signs Temp Pulse Resp BP Pulse Ox 98.2 F 96 12 98/65 97 12/03/18 09:00 12/03/18 09:00 12/03/18 09:00 12/03/18 09:00 12/03/18 09:00 Oxygen Delivery Method Room Air Weight: 152 lb 1.903 oz Body Mass Index (BMI) 21.8 Intake and Output for Last 24 Hours 12/01/18 12/02/18 12/03/18 23:59 23:59 23:59 Intake Total 730 / 730 600 / 600 580 / 580 Output Total 200 / 200 590 / 590 500 / 500 Balance 530 / 530 10 / 10 80 / 80 General: Alert, Oriented x3, Cooperative, Lethargic, - - Sometimes gets disoriented, impulsive and restless. Fluctuating level of consciousness and responsiveness. HEENT: Atraumatic, PERRLA, EOMI, Normocephalic Neck: Supple, No JVD, Negative Carotid Bruits Lungs: No rhonchi, No wheeze, No rales, Diminished Cardiovascular: Regular rate, Regular Rhythm, Normal S1, Normal S2, No murmurs Abdomen: Bowel Sounds Present, Soft, Non Tender Extremities: No edema, Capillary Refill Less than 3 Seconds Skin: No rashes, No breakdown Musculoskeletal: Arthritic Changes, Muscle Wasting, Tenderness - Mild tenderness present in the right leg. Lymphatic: No Cervical, Supraclavicular, or Inguinal Adenopathy Neurological: Cranial nerves II-XII grossly intact, - - Areflexia. Power is 3/5 at major joints of lower extremities. Bilateral weakness of lower extremities Psych/Mental Status: Anxious, Flat Affect Microbiology Past 72 Hours 11/28/18 09:08 Csf, Spinal Fluid Gram Stain - Final 11/28/18 09:08 Csf, Spinal Fluid CSF Culture - Final No growth in 72 hours. Laboratory Results 12/02/18 20:56: POC Glucose 267 H 12/03/18 05:30: WBC 3.3 L, RBC 3.98 L, Hgb 12.0 L, Hct 35.6 L, MCV 89.4, MCH 30.2, MCHC 33.7, RDW 14.2, RDW Differential 46.9 H, Plt Count 178, MPV 10.2, Immature Gran % (Auto) 0.000, Neut % (Auto) 44.6 L, Lymph % (Auto) 43.1 H, [place] % (Auto) 11.7 H, Eos % (Auto) 0.3, Baso % (Auto) 0.3, Absolute Neuts (auto) 1.5 L, Absolute Lymphs (auto) 1.43, Total Counted Not Reportable 12/03/18 05:30: Sodium 138, Potassium 4.0, Chloride 104, Carbon Dioxide 29.0, Anion Gap 5, BUN 26 H, Creatinine 0.96, Estim Creat Clear Calc 67.88, Est GFR (MDRD) Af Amer 99, Est GFR (MDRD) Non-Af 82, BUN/Creatinine Ratio 27.1 H, Glucose 148 H, Calcium 9.3 12/03/18 05:30: Total PSA 2.54 12/03/18 07:02: POC Glucose 168 H 12/03/18 10:46: POC Glucose 191 H Current Medications Acetaminophen (Tylenol) 1,000 mg PO Q8 [facility] Last Admin: 12/03/18 14:31 Dose: 1,000 mg Aspirin (Ecotrin) 81 mg PO DAILYCM [facility] Last Admin: 12/03/18 08:56 Dose: 81 mg Bisacodyl (Dulcolax) 10 mg RECTAL DAILY [facility] Dextrose (D50w Syringe) 0 gm IV X1 PRN; Protocol PRN Reason: Hypoglycemia Divalproex Sodium (Depakote) 250 mg PO BID [facility] Last Admin: 12/03/18 08:56 Dose: 250 mg Glucagon () 1 mg IM .X1 PRN PRN Reason: Hypoglycemia Hydralazine HCl (Apresoline Iv) 10 mg IV Q6H PRN PRN PRN Reason: SBP>180 mmhg Ibuprofen (Motrin) 600 mg PO Q8H PRN PRN PRN Reason: PAIN Last Admin: 12/02/18 12:08 Dose: 600 mg Insulin Glargine (Lantus (Bkc)) 15 units SC BID [facility] Last Admin: 12/03/18 08:54 Dose: 15 units Insulin Human Lispro (Humalog Kwikpen (Bkc)) 0 unit SQ ACHS [facility]; Protocol Last Admin: 12/03/18 10:47 Dose: 1 units Lisinopril (Zestril) 10 mg PO DAILY [facility] Nutritional Formula (Lactose Free) (Glucerna Shake) 120 ml PO 4X/DAY [facility] Last Admin: 12/03/18 14:34 Dose: 120 ml Pioglitazone HCl (Actos) 30 mg PO DAILY [facility] Last Admin: 12/03/18 08:57 Dose: 30 mg Pregabalin (Lyrica) 50 mg PO BID [facility] Last Admin: 12/03/18 08:57 Dose: 50 mg Quetiapine Fumarate (Seroquel) 12.5 mg PO QHS PRN PRN PRN Reason: insomnia Last Admin: 12/01/18 22:14 Dose: 12.5 mg Senna/Docusate Sodium (Senokot-S, Leann-Colace) 1 tablet PO BID [facility] Last Admin: 12/03/18 10:49 Dose: 1 tablet Sodium Chloride () 5 - 15 ml IV UD PRN PRN Reason: SALINE FLUSH Last Admin: 12/02/18 20:36 Dose: 10 ml Tamsulosin HCl (Flomax) 0.4 mg PO DAILY@1730 [facility] Last Admin: 12/02/18 20:35 Dose: 0.4 mg Medical Necessity - Tobacco Use Smoking Status: Never smoker Tobacco Use: Non-smoker Assessment/Plan All Active Problems Acute encephalopathy (Acute) Diabetic keto-acidosis (Acute) Seizure disorder (Acute) Elevated troponin (Acute) Hypernatremia (Acute) Hyperglycemia (Acute) Community acquired pneumonia (Acute) Bilateral leg weakness (Acute) The patient is a 73 year old M with a significant history of diabetes mellitus; hypertension; who presented to the emergency department with 2 weeks of progressively worsening bilateral lower extremity weakness and numbness. 1. Acute/subacute metabolic encephalopathy Patient had EEG in September 2018 which was reported as abnormal due to mild generalized slowing. No epileptiform discharges were noticed. MRI C-spine reported as mild to moderate bilateral neuroforaminal stenosis at C5-6 and severe on the right at C6-7 on the right primarily due to bony hypertrophy Initial urine culture shows mixed gram-positive organism UTI ruled out. Repeat UA was done shows 25-50 cells. repeat urine culture showed mixed gram-positive organism sensitive a contaminant. Patient had 2 doses of IV ceftriaxone prior to urine culture report and then discontinued 2. Orthostatic hypotension Resolved. 3. Subacute demyelinating polyneuropathy/CIDP MRI L spine was negative CK normal MRI brain does not show acute intracranial abnormality. Patient was seen by Dr. Mckeon and discussed with him. Patient completed 5 days of IVIG on 12/02/2018. RF positive. 71. C ANCA, atypical p-ANCA nad p-ANCA antibodies are negative. anti- ss DNA IgG antibody is also negative. Other rheumatological labs are pending. CSF fluid analysis shows 5 mononuclear WBC, total protein 86, glucose 82 with suspicion of albuminocytologic dissociation. 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 4. Hematuria with possible retention of urine: Patient had microscopic hematuria and UA and then had microscopic hematuria in the morning. Charlton catheter was tried but failed. She was seen by urologist Dr. Hart. Patient had about 500 mL more urine charted today. Needs UA sample collection. Kidneys and bladder ultrasound reported as prostatomegaly with small volume bladder and bladder wall thickening. On Flomax. Total PSA 2.54. 5 Dementia TSH 3.1 on 10/05/18 Folate 26. B12 1400. CK 47. DC aricept. 6. DVT prophylaxis: Heparin Discussed with the patient's . Was again seen in the afternoon and compliance reinforced. As per the nursing staff, patient was refusing medications insulin and Flomax but later on he took it. Summary: 23-year-old gentleman was admitted with 2 weeks of progressively worsening bilateral lower extremity weakness and numbness. He was transferred to PCU from third floor for decreased responsiveness and altered mental status. Patient was seen by Mike, LP autoimmune antibodies, EMG and MRI brain was done. Patient completed 5 days of IVIG for subacute demyelinating polyneuropathy. Now undergoing evaluation for hematuria/possible retention of urine. Microbiology Past 72 Hours 11/28/18 17:55 Interface Orders Urine Culture - Final Mixed Gram Positive Organisms 11/28/18 09:08 Csf, Spinal Fluid Gram Stain - Final 11/28/18 09:08 Csf, Spinal Fluid CSF Culture - Preliminary No growth in 24 hours. Final to follow. Microbiology Past 72 Hours 11/28/18 09:08 Csf, Spinal Fluid Gram Stain - Final 11/28/18 09:08 Csf, Spinal Fluid CSF Culture - Final No growth in 72 hours. Laboratory Results 12/02/18 20:56: POC Glucose 267 H 12/03/18 05:30: WBC 3.3 L, RBC 3.98 L, Hgb 12.0 L, Hct 35.6 L, MCV 89.4, MCH 30.2, MCHC 33.7, RDW 14.2, RDW Differential 46.9 H, Plt Count 178, MPV 10.2, Immature Gran % (Auto) 0.000, Neut % (Auto) 44.6 L, Lymph % (Auto) 43.1 H, [place] % (Auto) 11.7 H, Eos % (Auto) 0.3, Baso % (Auto) 0.3, Absolute Neuts (auto) 1.5 L, Absolute Lymphs (auto) 1.43, Total Counted Not Reportable 12/03/18 05:30: Sodium 138, Potassium 4.0, Chloride 104, Carbon Dioxide 29.0, Anion Gap 5, BUN 26 H, Creatinine 0.96, Estim Creat Clear Calc 67.88, Est GFR (MDRD) Af Amer 99, Est GFR (MDRD) Non-Af 82, BUN/Creatinine Ratio 27.1 H, Glucose 148 H, Calcium 9.3 12/03/18 05:30: Total PSA 2.54 12/03/18 07:02: POC Glucose 168 H 12/03/18 10:46: POC Glucose 191 H Clinical Impression(s) from Imaging Studies Brain CT 11/24/18 11:29 IMPRESSION: Chronic involutional changes of the brain. Brain MRI 11/24/18 16:52 IMPRESSION: No acute intracranial abnormality. Mild chronic microvascular ischemic changes. Cervical Spine MRI 11/26/18 16:08 IMPRESSION: No evidence for acute fractures fixation. Mild spondylosis Mild to moderate bilateral neuroforaminal stenosis at C5-6 and severe on the right at C6-7 on the right primarily due to bony hypertrophy Code Visit Inpatient E&M: 08069 Subs Hosp L3
--- NOTE | 2018-12-03 15:26 | PN_ITS ---
Patient Problems: Active and Suspected Problems Bilateral leg weakness (Acute) Subjective: Patient still has ongoing.'s of confusion and delirium and decreased responsiveness but most of the time he looks better, responds to question. At times he is oriented to 1 with impulsiveness and restlessness. Pulled out IV line last night. Patient had obvious microscopic hematuria as reported by . Prior to that to UA sample shows microscopic hematuria, 50?100 cells, WBC 25-50 cells with mixed contamination in urine culture; although patient got empiric 2 days of IV antibiotics prior to urine culture result Vitals/I&O's: Vital Signs Temp Pulse Resp BP Pulse Ox 98.2 F 96 12 98/65 97 12/03/18 09:00 12/03/18 09:00 12/03/18 09:00 12/03/18 09:00 12/03/18 09:00 Oxygen Delivery Method Room Air Weight: 152 lb 1.903 oz Body Mass Index (BMI) 21.8 Intake and Output for Last 24 Hours 12/01/18 12/02/18 12/03/18 23:59 23:59 23:59 Intake Total 730 / 730 600 / 600 580 / 580 Output Total 200 / 200 590 / 590 500 / 500 Balance 530 / 530 10 / 10 80 / 80 General: Alert, Oriented x3, Cooperative, Lethargic, - - Sometimes gets disoriented, impulsive and restless. Fluctuating level of consciousness and responsiveness. HEENT: Atraumatic, PERRLA, EOMI, Normocephalic Neck: Supple, No JVD, Negative Carotid Bruits Lungs: No rhonchi, No wheeze, No rales, Diminished Cardiovascular: Regular rate, Regular Rhythm, Normal S1, Normal S2, No murmurs Abdomen: Bowel Sounds Present, Soft, Non Tender Extremities: No edema, Capillary Refill Less than 3 Seconds Skin: No rashes, No breakdown Musculoskeletal: Arthritic Changes, Muscle Wasting, Tenderness - Mild tenderness present in the right leg. Lymphatic: No Cervical, Supraclavicular, or Inguinal Adenopathy Neurological: Cranial nerves II-XII grossly intact, - - Areflexia. Power is 3/5 at major joints of lower extremities. Bilateral weakness of lower extremities Psych/Mental Status: Anxious, Flat Affect Microbiology Past 72 Hours 11/28/18 09:08 Csf, Spinal Fluid Gram Stain - Final 11/28/18 09:08 Csf, Spinal Fluid CSF Culture - Final No growth in 72 hours. Laboratory Results 12/02/18 20:56: POC Glucose 267 H 12/03/18 05:30: WBC 3.3 L, RBC 3.98 L, Hgb 12.0 L, Hct 35.6 L, MCV 89.4, MCH 30.2, MCHC 33.7, RDW 14.2, RDW Differential 46.9 H, Plt Count 178, MPV 10.2, Immature Gran % (Auto) 0.000, Neut % (Auto) 44.6 L, Lymph % (Auto) 43.1 H, [place] % (Auto) 11.7 H, Eos % (Auto) 0.3, Baso % (Auto) 0.3, Absolute Neuts (auto) 1.5 L, Absolute Lymphs (auto) 1.43, Total Counted Not Reportable 12/03/18 05:30: Sodium 138, Potassium 4.0, Chloride 104, Carbon Dioxide 29.0, Anion Gap 5, BUN 26 H, Creatinine 0.96, Estim Creat Clear Calc 67.88, Est GFR (MDRD) Af Amer 99, Est GFR (MDRD) Non-Af 82, BUN/Creatinine Ratio 27.1 H, Glucose 148 H, Calcium 9.3 12/03/18 05:30: Total PSA 2.54 12/03/18 07:02: POC Glucose 168 H 12/03/18 10:46: POC Glucose 191 H Current Medications Acetaminophen (Tylenol) 1,000 mg PO Q8 [facility] Last Admin: 12/03/18 14:31 Dose: 1,000 mg Aspirin (Ecotrin) 81 mg PO DAILYCM [facility] Last Admin: 12/03/18 08:56 Dose: 81 mg Bisacodyl (Dulcolax) 10 mg RECTAL DAILY [facility] Dextrose (D50w Syringe) 0 gm IV X1 PRN; Protocol PRN Reason: Hypoglycemia Divalproex Sodium (Depakote) 250 mg PO BID [facility] Last Admin: 12/03/18 08:56 Dose: 250 mg Glucagon () 1 mg IM .X1 PRN PRN Reason: Hypoglycemia Hydralazine HCl (Apresoline Iv) 10 mg IV Q6H PRN PRN PRN Reason: SBP>180 mmhg Ibuprofen (Motrin) 600 mg PO Q8H PRN PRN PRN Reason: PAIN Last Admin: 12/02/18 12:08 Dose: 600 mg Insulin Glargine (Lantus (Bkc)) 15 units SC BID [facility] Last Admin: 12/03/18 08:54 Dose: 15 units Insulin Human Lispro (Humalog Kwikpen (Bkc)) 0 unit SQ ACHS [facility]; Protocol Last Admin: 12/03/18 10:47 Dose: 1 units Lisinopril (Zestril) 10 mg PO DAILY [facility] Nutritional Formula (Lactose Free) (Glucerna Shake) 120 ml PO 4X/DAY [facility] Last Admin: 12/03/18 14:34 Dose: 120 ml Pioglitazone HCl (Actos) 30 mg PO DAILY [facility] Last Admin: 12/03/18 08:57 Dose: 30 mg Pregabalin (Lyrica) 50 mg PO BID [facility] Last Admin: 12/03/18 08:57 Dose: 50 mg Quetiapine Fumarate (Seroquel) 12.5 mg PO QHS PRN PRN PRN Reason: insomnia Last Admin: 12/01/18 22:14 Dose: 12.5 mg Senna/Docusate Sodium (Senokot-S, Leann-Colace) 1 tablet PO BID [facility] Last Admin: 12/03/18 10:49 Dose: 1 tablet Sodium Chloride () 5 - 15 ml IV UD PRN PRN Reason: SALINE FLUSH Last Admin: 12/02/18 20:36 Dose: 10 ml Tamsulosin HCl (Flomax) 0.4 mg PO DAILY@1730 [facility] Last Admin: 12/02/18 20:35 Dose: 0.4 mg Medical Necessity - Tobacco Use Smoking Status: Never smoker Tobacco Use: Non-smoker Assessment/Plan All Active Problems Acute encephalopathy (Acute) Diabetic keto-acidosis (Acute) Seizure disorder (Acute) Elevated troponin (Acute) Hypernatremia (Acute) Hyperglycemia (Acute) Community acquired pneumonia (Acute) Bilateral leg weakness (Acute) The patient is a 73 year old M with a significant history of diabetes mellitus; hypertension; who presented to the emergency department with 2 weeks of progressively worsening bilateral lower extremity weakness and numbness. 1. Acute/subacute metabolic encephalopathy * Patient had EEG in September 2018 which was reported as abnormal due to mild generalized slowing. No epileptiform discharges were noticed. * MRI C-spine reported as mild to moderate bilateral neuroforaminal stenosis at C5-6 and severe on the right at C6-7 on the right primarily due to bony hypertrophy * Initial urine culture shows mixed gram-positive organism UTI ruled out. Repeat UA was done shows 25-50 cells. repeat urine culture showed mixed gram- positive organism sensitive a contaminant. Patient had 2 doses of IV ceftriaxone prior to urine culture report and then discontinued * 2. Orthostatic hypotension * Resolved. 3. Subacute demyelinating polyneuropathy/CIDP * MRI L spine was negative * CK normal * MRI brain does not show acute intracranial abnormality. * Patient was seen by Dr. Mckeon and discussed with him. Patient completed 5 days of IVIG on 12/02/2018. * RF positive. 71. C ANCA, atypical p-ANCA nad p-ANCA antibodies are negative. anti- ss DNA IgG antibody is also negative. Other rheumatological labs are pending. * CSF fluid analysis shows 5 mononuclear WBC, total protein 86, glucose 82 with suspicion of albuminocytologic dissociation. 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 4. Hematuria with possible retention of urine: Patient had microscopic hematuria and UA and then had microscopic hematuria in the morning. Charlton catheter was tried but failed. She was seen by urologist Dr. Hart. Patient had about 500 mL more urine charted today. Needs UA sample collection. Kidneys and bladder ultrasound reported as prostatomegaly with small volume bladder and bladder wall thickening. On Flomax. Total PSA 2.54. 5 Dementia * TSH 3.1 on 10/05/18 * Folate 26. B12 1400. CK 47. * DC aricept. 6. DVT prophylaxis: Heparin Discussed with the patient's . Was again seen in the afternoon and compliance reinforced. As per the nursing staff, patient was refusing medications insulin and Flomax but later on he took it. Summary: 23-year-old gentleman was admitted with 2 weeks of progressively worsening bilateral lower extremity weakness and numbness. He was transferred to PCU from third floor for decreased responsiveness and altered mental status. Patient was seen by Mike, ARI[place] autoimmune antibodies, EMG and MRI brain was done. Patient completed 5 days of IVIG for subacute demyelinating polyneuropathy. Now undergoing evaluation for hematuria/possible retention of urine. Microbiology Past 72 Hours 11/28/18 17:55 Interface Orders Urine Culture - Final Mixed Gram Positive Organisms 11/28/18 09:08 Csf, Spinal Fluid Gram Stain - Final 11/28/18 09:08 Csf, Spinal Fluid CSF Culture - Preliminary No growth in 24 hours. Final to follow. Microbiology Past 72 Hours 11/28/18 09:08 Csf, Spinal Fluid Gram Stain - Final 11/28/18 09:08 Csf, Spinal Fluid CSF Culture - Final No growth in 72 hours. Laboratory Results 12/02/18 20:56: POC Glucose 267 H 12/03/18 05:30: WBC 3.3 L, RBC 3.98 L, Hgb 12.0 L, Hct 35.6 L, MCV 89.4, MCH 30.2, MCHC 33.7, RDW 14.2, RDW Differential 46.9 H, Plt Count 178, MPV 10.2, Immature Gran % (Auto) 0.000, Neut % (Auto) 44.6 L, Lymph % (Auto) 43.1 H, [place] % (Auto) 11.7 H, Eos % (Auto) 0.3, Baso % (Auto) 0.3, Absolute Neuts (auto) 1.5 L, Absolute Lymphs (auto) 1.43, Total Counted Not Reportable 12/03/18 05:30: Sodium 138, Potassium 4.0, Chloride 104, Carbon Dioxide 29.0, Anion Gap 5, BUN 26 H, Creatinine 0.96, Estim Creat Clear Calc 67.88, Est GFR (MDRD) Af Amer 99, Est GFR (MDRD) Non-Af 82, BUN/Creatinine Ratio 27.1 H, Glucose 148 H, Calcium 9.3 12/03/18 05:30: Total PSA 2.54 12/03/18 07:02: POC Glucose 168 H 12/03/18 10:46: POC Glucose 191 H Clinical Impression(s) from Imaging Studies Brain CT 11/24/18 11:29 IMPRESSION: Chronic involutional changes of the brain. Brain MRI 11/24/18 16:52 IMPRESSION: No acute intracranial abnormality. Mild chronic microvascular ischemic changes. Cervical Spine MRI 11/26/18 16:08 IMPRESSION: No evidence for acute fractures fixation. Mild spondylosis Mild to moderate bilateral neuroforaminal stenosis at C5-6 and severe on the right at C6-7 on the right primarily due to bony hypertrophy Code Visit Inpatient E&M: 15994 Subs Hosp L3
[2018-12-03 16:26] LABS: Bedside Glucose 205 mg/dL (70-110)
--- NOTE | 2018-12-03 16:42 | NURSING ---
pt is insisting on using bedside commode but pt is unsafe for transfer d/t weakness. this RN explained to pt and pt's that transfer is unsafe for both pt and staff. pt's is agreeable with this RN. pt states he will continue to use bedpan at this time. will cont to monitor
[2018-12-03] MEDS: Tamsulosin HCl 0.4 MG Capsule PO (16:50)
[2018-12-03] MEDS: Polyethylene Glycol 3350 17 GM PACKET PO (16:51)
[2018-12-03] MEDS: Senna/Docusate Sodium 1 Tablet 2 TABLET PO (16:51)
[2018-12-03 20:07] LABS: Albumin, Ur 49.4 % (.); Alpha-1-Globulin, Ur 4.9 % (.); Alpha-2-Globulins, Ur 13.5 % (.); Gamma Globulin, Ur 13.3 % (.); M-Spike, Ur % Not Observed % (Not Observed); Protein, 24Ur 668 mg/24 hr (30-150); Total Protein, Ur 59.4 mg/dL (Not Estab.)
[2018-12-03 22:21] LABS: Bedside Glucose 254 mg/dL (70-110)
[2018-12-04 03:00] VITALS: BP 114/73; PULSE 75; PULSE 91; RESP 16; TEMP 36.6; O2SAT 95
[2018-12-04 03:33] LABS: Mucous, Urine 0 SEEN /hpf (<or=2+); Squamous Epithelial Cells - UA 0 SEEN /hpf (0-5)
[2018-12-04 03:55] LABS: Color, Urine Yellow (Yellow); Glucose, Dipstick 50 mg/dl (Normal); Ketone-Dipstick 5 mg/dl (Negative); Leukocyte Esterase-Dipstick 500 /ul (Negative); Nitrite-Dipstick Positive (Negative); Occult Blood-Urine 250 /ul (Negative); Protein-Dipstick 100 mg/dl (Negative); Specific Gravity, Urine 1.025 (1.002-1.030); Urine Bilirubin Dipstick Negative (Negative); Urine Clarity Cloudy (Clear); Urine Urobilinogen Normal (Normal)
[2018-12-04 04:02] LABS: Bacteria 3+ /hpf (None Seen); Red Blood Cells-Urine 10-25 SEEN /hpf (0-5); White Blood Cells 25-50 SEEN /hpf (0-5)
[2018-12-04] MEDS: Insulin Lispro 100 UNIT/ML INSULN.PEN SQ ×2 (06:29→11:54)
[2018-12-04 06:45] LABS: Bedside Glucose 163 mg/dL (70-110)
[2018-12-04 07:19] VITALS: PULSE 96
[2018-12-04 09:00] VITALS: BP 122/68; PULSE 101; RESP 18; TEMP 36.8; O2SAT 97
[2018-12-04] MEDS: Senna/Docusate Sodium 1 Tablet 2 TABLET PO (10:05)
[2018-12-04] MEDS: Lisinopril 10 MG Tablet PO (10:05)
[2018-12-04] MEDS: Aspirin E.C. 81 MG Tablet PO (10:05)
[2018-12-04] MEDS: Divalproex Sodium 250 MG Tablet PO (10:05)
[2018-12-04] MEDS: Pioglitazone Hydrochloride 30 MG Tablet PO (10:06)
[2018-12-04] MEDS: Polyethylene Glycol 3350 17 GM PACKET PO (10:12)
[2018-12-04] MEDS: Pregabalin 50 MG Capsule PO (10:12)
--- NOTE | 2018-12-04 10:32 | CASEMGMT ---
KARI had left a message for [facility] inquiring if they have received pre-cert. Vanessa from [facility] called KARI back and she said they have not received approval yet, but anticipate today. Await pre-cert. Tashia MARIN MSW
[2018-12-04 10:41] LABS: Bedside Glucose 191 mg/dL (70-110)
--- NOTE | 2018-12-04 11:23 | PCM.TXEXTCAR ---
- Diet 11/26/18 10:01 Diet: Regular Diet Food consistency:: Regular Liquid Consistency:: Regular/Thin Type of Dietary Supplement:: Glucerna Shake Is pt able to select menu?: Yes Diet Comments: Cardaic diet - Routine Orders/Code Status Suppository Type: Dulcolax 10mg Suppository Frequency: Daily PRN Routine Lab Work: BMP Code Status: Full Code - Wound(s) lower back Wound Type: Puncture - Therapies Weight Bearing: Full weight bearing Physical Therapy: Eval and Treat Occupational Therapy: Eval and Treat Speech Therapy: Eval and Treat - Allergies/Procedures Done in Hospital Allergies/Adverse Reactions: Allergies No Known Allergies Allergy (Verified 11/20/18 15:47) Procedures: None - Type of Care/Length of Stay Estimated LOS: Convalescent Care Less Than 30 days Type of Care Needed: Skilled Rehab Potential: Fair Prognosis: Fair - Additional Orders/Day of Discharge Day of Discharge: 11/23/18 - Dietary and Speech Recommendations Dietitian Recommendations/Changes: Recommend obtain new weight. Recommend continue liberal regular diet as indicated. Will continue ONS at meals and medpass for added nutrition if consumed. Consider nutrition support if PO fails with meals and ONS per pt/family wishes -- consult RD as needed. - Follow Up Care Primary Care Physician: Bolivar Kiran Chi, MD [Primary Care Provider] - Within 2 Weeks Please follow up with your Primary Care Physician in: [place] 2 week Please Follow Up With: Mohinder Mckeon MD When: in 2 week Please Follow Up With: Alberto Hart MD When: IN 2 WEEK
--- NOTE | 2018-12-04 11:24 | DS.PCM_ITS ---
Discharge Date and Diagnosis - Problem List Patient Problems: Active and Suspected Problems Bilateral leg weakness (Acute) Date of Admission: 11/20/18 Date of Discharge: 12/04/18 - Primary Discharge Diagnosis Active and Suspected Problems Bilateral leg weakness (Acute) - Secondary Discharge Diagnosis Chronic Problems Rheumatoid arthritis (Chronic) Melanoma (Chronic) Depression (Chronic) Hypertension (Chronic) TIA (transient ischemic attack) (Chronic) Stroke (Chronic) Hospital Course and Treatment Operations: None Summary of Care Provided: The patient is a 73 year old gentleman was admitted with 2 weeks of progressively worsening bilateral lower extremity weakness and numbness. He was transferred to PCU from third floor for decreased responsiveness and altered mental status. Patient was seen by Mike, LP was done, autoimmune antibodies, EMG and MRI brain was done. Patient completed 5 days of IVIG for subacute demyelinating polyneuropathy. The patient had hematuria/possible retention of urine. Started on Flomax and patient had improvement in urine flow. 1. Acute/subacute metabolic encephalopathy * Patient had EEG in September 2018 which was reported as abnormal due to mild generalized slowing. No epileptiform discharges were noticed. * MRI C-spine reported as mild to moderate bilateral neuroforaminal stenosis at C5-6 and severe on the right at C6-7 on the right primarily due to bony hypertrophy 2. Orthostatic hypotension * Resolved. 3. Subacute demyelinating polyneuropathy/CIDP * MRI L spine was negative * CK normal * MRI brain does not show acute intracranial abnormality. * Patient was seen by Dr. Mckeon and discussed with him. Patient completed 5 days of IVIG on 12/02/2018. * RF positive. 71. C ANCA, atypical p-ANCA nad p-ANCA antibodies are negative. anti- ss DNA IgG antibody is also negative. Other rheumatological labs are pending. * CSF fluid analysis shows 5 mononuclear WBC, total protein 86, glucose 82 with suspicion of albuminocytologic dissociation. 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 4. Hematuria with retention of urine: Patient had microscopic hematuria and UA and then had microscopic hematuria on 12/03. [place] catheter was tried but failed. She was seen by urologist Dr. Hart. Patient had about 500 mL more urine charted today. Needs UA sample collection. Kidneys and bladder ultrasound reported as prostatomegaly with small volume bladder and bladder wall thickening. On Flomax. Total PSA 2.54. Previous 2 urine culture shows mixed gram-positive organism and UTI ruled out. Repeat UA was done shows 25-50 cells. repeat urine culture showed mixed gram- positive organism suggestive of contaminant. Patient had 3 doses of IV ceftriaxone recently. Repeat UA on 12/04 similar to previous UA positive nitrite, WBC 25-50, RBC 10-25 cells but better than 11/28. 3+ bacteria. Patient had 1 more dose of ceftriaxone 1 g IM given on 12/04 as patient did not had IV access. Microbiology lab called and says preliminary urine culture not show growth but is early to see comment; although patient got empirically ceftriaxone. * He denies lower urinary tract symptoms. 5 Dementia * TSH 3.1 on 10/05/18 * Folate 26. B12 1400. CK 47. * DC aricept. 6. DVT prophylaxis: Heparin Discussed with the patient's . Discharge medication reconciliation done. Discharge follow-up instructions completed. Discharge process discussed with the patient and all questions were answered to patient's satisfaction. Patient advised to follow-up with neurologist Dr. Mckeon in 2 weeks for autoimmune antibodies. Follow-up with Dr. Hart, the urologist in 2 to 3 weeks to follow-up on BPH with bladder outlet obstruction. Patient will be also beneficial to follow-up with hematology for elevated rheumatoid factor. Total time spent, exact 35 minutes on discharge meds reconciliation, examination, review of imaging and blood test and discussion with the patient on follow-up instructions. Patient Problems: Active and Suspected Problems Bilateral leg weakness (Acute) Subjective: Patient is hemodynamically stable. No fever or chills. Heart rate in 80s and 90s. Patient is awake and alert. Patient had a urine output. UA was discussed with the family. - Physical Exam General: Alert, Oriented x3, Cooperative HEENT: Atraumatic, PERRLA, EOMI, Normocephalic Neck: Supple, No JVD, Negative Carotid Bruits Lungs: Clear to auscultation, Diminished Cardiovascular: Regular rate, Regular Rhythm, Normal S1, Normal S2, No murmurs Abdomen: Bowel Sounds Present, Soft, Non Tender, Non-Distended Extremities: No edema, Capillary Refill Less than 3 Seconds Skin: No rashes, No breakdown Musculoskeletal: No Tenderness to Palpation of Joints or Extremities, Arthritic Changes, Muscle Wasting Lymphatic: No Cervical, Supraclavicular, or Inguinal Adenopathy Neurological: Cranial nerves II-XII grossly intact, - - Areflexia. Bilateral lower extremity weakness power 3/5. Sensory motor neuropathy in both lower extremities. Psych/Mental Status: Normal Affect, Appropriate Vital Signs Temp Pulse Resp BP Pulse Ox 98.2 F 101 H 18 122/68 H 97 12/04/18 09:00 12/04/18 09:00 12/04/18 09:00 12/04/18 09:00 12/04/18 09:00 Oxygen Delivery Method Room Air Weight: 152 lb 1.903 oz Body Mass Index (BMI) 21.8 Intake and Output for Last 24 Hours 12/02/18 12/03/18 12/04/18 23:59 23:59 23:59 Intake Total 600 / 600 820 / 820 100 / 100 Output Total 590 / 590 600 / 600 100 / 100 Balance 10 10 220 / 220 0 / 0 Laboratory Tests Past 24 Hrs 12/04/18 03:15 Urine Color Yellow Urine Clarity Cloudy Urine pH 6.0 Ur Specific [place] 1.025 Urine Protein 100 H Urine Glucose (UA) 50 H Urine Ketones 5 H Urine Occult Blood 250 H Urine Nitrite Positive H Urine Bilirubin Negative Urine Urobilinogen Normal Ur Leukocyte Esterase 500 H Urine RBC 10-25 SEEN Urine WBC 25-50 SEEN Ur Squamous Epith Cells 0 SEEN Urine Bacteria 3+ Urine Mucus 0 SEEN POC Glucose 12/04/18 12/04/18 12/03/18 10:18 06:25 21:58 POC Glucose 191 H 163 H 254 H 12/03/18 12/03/18 16:16 10:46 POC Glucose 205 H 191 H Home Medications: Medications to take at Discharge Aspirin [Aspir 81] 81 mg PO DAILY #30 tablet. 10/03/18 Divalproex Sodium 250 mg PO BID 11/20/18 Metformin HCl 500 mg PO BID 11/20/18 Pioglitazone HCl 30 mg PO DAILY 11/20/18 Insulin Lispro [Humalog KwikPen] See Protocol SQ ACHS insuln.pen 11/23/18 Acetaminophen [Tylenol] 500 mg PO Q6H PRN #0 tablet 12/04/18 Bisacodyl [Dulcolax] 10 mg RECTAL DAILY PRN PRN suppos. 12/04/18 Insulin Glargine [Lantus SoloStar Pen] 20 units SC BID #0 12/04/18 Lisinopril [Zestril] 10 mg PO DAILY tablet 12/04/18 Pregabalin [Lyrica] 50 mg PO BID #60 cap 12/04/18 Quetiapine Fumarate [Seroquel] 12.5 mg PO QHS PRN PRN tablet 12/04/18 Senna/Docusate Sodium [Senokot-S] 2 tablet PO BID PRN PRN tablet 12/04/18 Tamsulosin HCl [Flomax] 0.4 mg PO DAILY@1730 capsule 12/04/18 Following Prescrptions Were Given to Patient: Pregabalin [Lyrica] 50 mg PO BID #60 cap Primary Care Physician: Bolivar Kiran Chi, MD [Primary Care Provider] - Within 2 Weeks Please follow up with your Primary Care Physician in: IN 2 week Please Follow Up With: Mohinder Mckeon MD When: in 2 week Please Follow Up With: Alberto Hart MD When: IN 2 WEEK Medical Necessity - Tobacco Use Smoking Status: Never smoker Tobacco Use: Non-smoker Meaningful Use Info Meaningful Use Diagnoses (Choose all that apply): None applicable Code Visit Inpatient E&M: 06868 Disch Hosp
[2018-12-04 12:01] LABS: Bedside Glucose 169 mg/dL (70-110)
[2018-12-04] MEDS: Ceftriaxone 1 GM Vial IM (12:11)
--- NOTE | 2018-12-04 13:11 | CASEMGMT ---
Received a call from Vanessa and she received pre-cert for patient. KARI notified physician. Received orders. KARI called [facility] and arranged for patient to get picked up at 3p via cot. KARI notified patient, his , RN, charge rn, press secretary, and Vanessa at [facility]. Plan: d/c to [facility] under skilled level of care on a PASRR as patient was originally observation status. [facility] [place]. Tashia MARIN MSW
[2018-12-04] MEDS: Acetaminophen 500 MG Tablet 1000 MG PO (13:50)
[2018-12-04 13:56] VITALS: BP 100/63; PULSE 97; RESP 16; TEMP 37.1; O2SAT 100
--- NOTE | 2018-12-04 15:06 | NURSING ---
report called to Josie Villarreal
--- NOTE | 2018-12-04 15:30 | NURSING ---
pt assisted to beside commode due to pt refusing bedpan. X4 max assist to help to bedside commode and back to bed.
== END 2018-12-04 15:50 | disposition skilled nursing facility (03) | DRG 94 ==
LOC: ED 17:35 → MS3 20:21 → PCU 11-24 11:56
PROVIDERS: Internal Medicine; Psychiatry & Neurology Neurology; Student in an Organized Health Care Education/Training Program; Urology; Admitting Provider Hospitalist; Emergency Provider Emergency Medicine; Family Provider Family Medicine Geriatric Medicine; PCP Family Medicine Geriatric Medicine; Referring Provider Hospitalist; Visit Provider Internal Medicine
DX: G61.0 Guillain-Barre syndrome (principal); G93.41 Metabolic encephalopathy; E86.0 Dehydration; M48.061 Spinal stenosis, lumbar region without neurogenic claudication; M48.07 Spinal stenosis, lumbosacral region; M48.02 Spinal stenosis, cervical region; I95.1 Orthostatic hypotension; F03.90 Unspecified dementia, unspecified severity, without behavioral disturbance, psychotic disturbance, mood disturbance, and anxiety; Z79.4 Long term (current) use of insulin; E11.9 Type 2 diabetes mellitus without complications; R31.29 Other microscopic hematuria; R33.9 Retention of urine, unspecified
CPT/HCPCS: 36415; 62270; 70450; 70551; 72141; 76770; 77003; 80048; 80076; 81001; 82550; 82607; 82746; 82945; 82962; 83036; 83735; 84153; 84157; 84165; 84166; 84443; 85025; 85049; 85610; 85652; 85730; 86038; 86140; 86141; 86225; 86226; 86235; 86256; 86335; 86431; 87070; 87077; 87086; 87088; 87186; 87205; 87899; 88108; 88313; 89050; 89051; 92610; 95907; 95911; 97110; 97163; 97166; 97530; 97535; 97802; 99282; 99406; J7030; J7040; J7050; A4216; J1568; J7799

== ENCOUNTER → 2019-01-10 | Outpatient (CLI) | payer OTHER, MEDICARE, SELFPAY ==
[2018-11-20 20:46] VITALS: BMI 21.8
== END | disposition home or self-care (01) ==
LOC: POLAB3 14:58
PROVIDERS: Family Provider Family Medicine Geriatric Medicine; PCP Family Medicine Geriatric Medicine; Visit Provider Family Medicine Geriatric Medicine
DX: N39.0 Urinary tract infection, site not specified (principal)
CPT/HCPCS: 36415; 87077; 87086; 87088; 87186